=== PATIENT | female | born 1945 | race Hispanic/Latino ===

== ENCOUNTER → 2018-03-11 | Outpatient (CLI) | payer MEDICARE ==
[~2018-03-11] MED LIST: CARVEDILOL3.125 MG PO; COMBIVENT RESPIM4 GM INH; COREG12.5 MG PO; FUROSEMIDE40 MG PO; KLOR-CON 1010 MEQ PO; LEVAQUIN500 MG PO; METFORMIN HCL500 MG PO; MINOCYCLINE HC100 M1 PO; PRINIVIL5 MG PO; SIMVASTATIN40 MG PO; SPIRONOLACTONE25 MG PO; VICODIN 5-5001 EACH PO
== END ==
LOC: MAMMO 12:03
PROVIDERS: ATTEND Internal Medicine
DX: Z12.31 Encounter for screening mammogram for malignant neoplasm of breast (principal)
CPT/HCPCS: 77067

== ENCOUNTER 2018-08-25 16:33 | Observation (INO) | payer MEDICARE ==
[~2018-08-25] VITALS: Ht 147.3 cm; Wt 90.4 kg
--- OUTSIDE RECORDS SUMMARY | 2018-08-25 16:36 | XMS REPORT ---
Author Author [facility] Address Unknown Phone Unavailable Care Team Providers Care Certified Medical Assistant Name Role Phone ARLEN MEADOWS Unavailable Unavailable Problems This patient has no known problems. Allergies, Adverse Reactions, Alerts This patient has no known allergies or adverse reactions. Medications This patient has no known medications. Results Test Description Test Time Test Comments Text Results Atomic Results Result Comments MAMMOGRAPHY DIGITAL SCR BILAT [place] [address] Patient Name: JANESSA GARCIA MR #: [id number] : 1945 Age/Sex: 72/F Req #: [id number] [facility] Physician: Ordered by: ARLEN MEADOWS MD Report #: [id number] Location: MAMMO Room/Bed: Procedure: [id number] MG/MAMMOGRAPHY DIGITAL SCR BILAT Exam Date: 03/11/18 Exam Time: 1233 REPORT STATUS: Signed #[id number] - [id number] #BILATERAL DIGITAL SCREENING MAMMOGRAM WITH CAD: 03/11/2018 CLINICAL: Routine screening. No prior exams were available for comparison. Current study contains 5 films. The tissue of both breasts is predominantly fatty. Current study was also evaluated with a Computer Aided Detection (CAD) system. There are benign vascular calcifications and scattered calcifications in both breasts. 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 There is a left chest wall cardiac device present. No significant masses, calcifications, or other findings are seen in either breast. IMPRESSION: BENIGN There is no mammographic evidence of malignancy. A 1 year screening mammogram is recommended. The patient will be notified by manjit aguilar of the results. Bakari Murrell Jr., D.O. cw/:03/15/2018 11:33:16 Hooker Laster: Emmy JOYCE)(Silvia), [facility] letter sent: Normal Exam Mammogram BI-RADS: 2 Benign Dictated By: BAKARI MURRELL DO 1133 Transcribed By: TONY on 03/15/18 1133 COPY TO: ARLEN MEADOWS MD
[2018-08-25 17:39] LABS: BASOPHILS # (AUTO) 0.1 (0.0-0.1); EOSINOPHILS # (AUTO) 0.1 (0.0-0.4); HEMATOCRIT 43.1 % (34.2-44.1); HEMOGLOBIN 13.8 g/dL (12.0-16.0); LYMPHOCYTES # (AUTO) 1.9 (1.0-3.2); LYMPHOCYTES % 26.2 % (18.0-39.1); MEAN CORPUSCULAR HEMOGLOBIN 28.8 pg (28-32); MONOCYTES # (AUTO) 0.7 (0.2-0.8); MONOCYTES % 9.1 % (4.4-11.3); NEUTROPHILS # (AUTO) 4.4 (2.1-6.9); NEUTROPHILS % 62.4 % (38.7-80.0); PLATELET COUNT 234 x10e3/uL (140-360); RED BLOOD COUNT 4.79 x10e6/uL (3.6-5.1); RED CELL DISTRIBUTION WIDTH 13.4 % (11.7-14.4)
[2018-08-25 17:44] LABS: INR 1.02; PARTIAL THROMBOPLASTIN TIME 28.8 seconds (23.8-35.5); PROTHROMBIN TIME 14.3 seconds (11.9-14.5)
[2018-08-25 17:51] LABS: ALANINE AMINOTRANSFERASE 11 IU/L (0-55); ALBUMIN 3.9 g/dL (3.5-5.0); ALBUMIN/GLOBULIN RATIO 1.1 (0.8-2.0); ALKALINE PHOSPHATASE 76 IU/L (40-150); ANION GAP 12.3 mmol/L (8-16); BLOOD UREA NITROGEN 14 mg/dL (7-26); BUN/CREATININE RATIO 18 (6-25); CALCIUM 9.7 mg/dL (8.4-10.2); CARBON DIOXIDE 26 mmol/L (22-29); CHLORIDE 100 mmol/L (98-107); CREATINE KINASE 84 IU/L (29-168); EST GLOMERULAR FILTRATION RATE > 60 ML/MIN (60-); GLUCOSE 98 mg/dL (74-118); POTASSIUM 4.3 mmol/L (3.5-5.1); SODIUM 134 mmol/L (136-145)
[2018-08-25] MEDS ORDERED: FUROSEMIDE INJ 10 MG/ML 4 ML VIAL IV ONE (19:00)
--- NOTE | 2018-08-25 19:05 | Diagnostic Imaging Report ---
EXAMINATION: CHEST SINGLE (PORTABLE) INDICATION: Having trouble breathing. COMPARISON: None FINDINGS: TUBES and LINES: None. Blow lead left-sided cardiac pacemaker. Lungs: Bilateral pulmonary venous congestion and central pulmonary edema. PLEURA: No pleural effusion or pneumothorax. HEART AND MEDIASTINUM: The cardiac silhouette is moderately enlarged. Median sternotomy wires and mediastinal clips. BONES AND SOFT TISSUES: No acute osseous lesion. Soft tissues are unremarkable. UPPER ABDOMEN: No free air under the diaphragm. IMPRESSION: Bilateral pulmonary venous congestion and central pulmonary edema. Signed by: Dr. Bakari Rome M.D. on 08/25/2018 7:02 PM
[2018-08-25] MEDS ORDERED: DEXTROSE 50% SYRINGE 50 ML IV PRN (19:15)
[2018-08-25] MEDS ORDERED: INSULIN REGULAR, HUMAN 100 UNIT/1 ML 3ML VIAL SQ SCH (21:00)
[2018-08-25 22:30] VITALS: BP 147/78
[2018-08-25 22:31] VITALS: BP 147/78
[2018-08-25 22:34] VITALS: BP 147/78
[2018-08-26] VITALS (8 sets, daily range): BP systolic 98–118; BP diastolic 53–70
[2018-08-26 01:39] LABS: CREATINE KINASE MB 1.4 ng/mL (0-5.0)
[2018-08-26 05:48] LABS: BASOPHILS # (AUTO) 0.1 (0.0-0.1); BASOPHILS % 0.8 % (0.0-1.0); EOSINOPHILS # (AUTO) 0.1 (0.0-0.4); EOSINOPHILS % 1.5 % (0.0-6.0); HEMATOCRIT 39.6 % (34.2-44.1); HEMOGLOBIN 12.7 g/dL (12.0-16.0); LYMPHOCYTES # (AUTO) 1.8 (1.0-3.2); LYMPHOCYTES % 29.5 % (18.0-39.1); MEAN CORPUSCULAR HEMOGLOBIN 28.5 pg (28-32); MEAN CORPUSCULAR HGB CONC 32.1 g/dL (31-35); MEAN CORPUSCULAR VOLUME 88.8 fL (81-99); MONOCYTES # (AUTO) 0.7 (0.2-0.8); MONOCYTES % 10.8 % (4.4-11.3); NEUTROPHILS # (AUTO) 3.5 (2.1-6.9); NEUTROPHILS % 57.2 % (38.7-80.0); PLATELET COUNT 201 x10e3/uL (140-360); RED BLOOD COUNT 4.46 x10e6/uL (3.6-5.1); RED CELL DISTRIBUTION WIDTH 13.3 % (11.7-14.4)
--- NOTE | 2018-08-26 06:25 | Diagnostic Imaging Report ---
CHEST SINGLE (PORTABLE), 08/26/2018 7:00 AM Technique: CHEST SINGLE (PORTABLE) Comparison: Previous day Clinical history: Congestive heart failure Findings: See Impression Impression: 1. Lines/Tubes: Stable left chest wall dual-lead ICD. 2. Stable enlarged cardiomediastinal silhouette status post median sternotomy. 3. Central vascular congestion. No effusion or pneumothorax. Signed by: Dr Catherine Marin MD on 08/26/2018 6:22 AM
[2018-08-26 06:31] LABS: CREATINE KINASE MB 1.3 ng/mL (0-5.0)
[2018-08-26 06:53] LABS: ANION GAP 12.6 mmol/L (8-16); BLOOD UREA NITROGEN 15 mg/dL (7-26); BUN/CREATININE RATIO 19 (6-25); CALCIUM 9.5 mg/dL (8.4-10.2); CARBON DIOXIDE 28 mmol/L (22-29); CHLORIDE 102 mmol/L (98-107); CREATININE, SERUM 0.78 mg/dL (0.57-1.11); EST GLOMERULAR FILTRATION RATE > 60 ML/MIN (60-); GLUCOSE 90 mg/dL (74-118); POTASSIUM 3.6 mmol/L (3.5-5.1); SODIUM 139 mmol/L (136-145)
[2018-08-26] MEDS: INSULIN REGULAR, HUMAN 100 UNIT/1 ML 3ML VIAL SQ SCH ×4 (07:38→21:05)
[2018-08-26] MEDS ORDERED: DEXTROSE 50% SYRINGE 50 ML IV PRN (07:45)
[2018-08-26] MEDS: FUROSEMIDE INJ 10 MG/ML 4 ML VIAL IV SCH ×3 (08:32→21:06)
[2018-08-26] MEDS: CARVEDILOL 3.125 MG TAB PO SCH ×2 (08:51→16:38)
[2018-08-26] MEDS: SPIRONOLACTONE 25 MG TAB PO SCH (08:58)
[2018-08-26] MEDS: POTASSIUM CHLORIDE 10MEQ EA PO SCH (08:58)
[2018-08-26] MEDS ORDERED: FUROSEMIDE INJ 10 MG/ML 4 ML VIAL IV SCH (09:00)
[2018-08-26] MEDS ORDERED: LISINOPRIL 10 MG TAB PO SCH (09:00)
--- NOTE | 2018-08-26 09:15 | History and Physical ---
CHIEF COMPLAINT 1. Increasing shortness of breath. 2. Chest pain. 3. Weakness. HPI: This is a 72-year-old female with a past medical history of cardiomyopathy, coronary artery disease, diabetes, hypertension, congestive heart failure, hyperlipidemia, was in her usual state of health until the patient was feeling weakness, shortness of breath and chest pressure. Patient went to Dr. Gomez's office. Patient was found to be in pulmonary edema. Patient was sent to the ER. No leg pain. No leg swelling. No diarrhea. No constipation. No cough. No back pain. No seizures. No focal weakness. No hemoptysis. PAST MEDICAL HISTORY 1. Cardiomyopathy. 2. Congestive heart failure. 3. Coronary artery disease. 4. Hypertension. 5. Hyperlipidemia. 6. Diabetes mellitus, type 2. PAST SURGICAL HISTORY 1. History of coronary artery bypass graft. 2. AICD. HABITS: Denies smoking. No alcohol use. Denies illicit drug use. SOCIAL HISTORY: The patient is . Lives with family. FAMILY HISTORY: Noncontributory. MEDICATIONS: List reviewed. REVIEW OF SYSTEMS GENERAL: Denies vertigo. HEENT: No diplopia. CARDIAC: No edema. CHEST: No cough but has shortness of breath and chest pain. ALIMENTARY: No nausea or vomiting. No diarrhea. No constipation. GENITOURINARY: No dysuria or hematuria. MUSCULOSKELETAL: No joint pain. MANAGER ORDER: No weakness. PHYSICAL EXAMINATION GENERAL: The patient is a 72-year-old female who is alert and oriented times 3. No acute distress. VITALS: Temperature 97.5, pulse 72, respiratory rate 18, blood pressure 106/54. HEENT: Head is normocephalic and atraumatic. Bilaterally reactive to light. Extraocular muscles intact. NECK: Supple. Mild JVD. No carotid bruits. Tongue normal. Conjunctivae and sclerae normal. No clubbing. No cyanosis. LUNGS: Air entry fair. Decreased breath sounds at both bases. Few rhonchi bilaterally. HEART: S1 and S2. Muffled heart sounds. No S3. No S4. No murmur. ABDOMEN: Soft, obese, nontender. No guarding. No rigidity. EXTREMITIES: No edema. Peripheral pulses +1. MANAGER ORDER: Alert and nonfocal. CBC normal. Chemistry: Sodium 134, potassium 4.3, BUN and creatinine normal. BNP 263. CK, CK-MB normal. Chest x-ray with congestive heart failure and pulmonary edema. ASSESSMENT 1. Exacerbation of congestive heart failure: Patient has a history of cardiomyopathy, ischemic and valvular cardiomyopathy. 2. Hypertension. 3. Diabetes mellitus. 4. Atherosclerotic heart disease: Status post coronary artery bypass graft. 5. Hyperlipidemia. PLAN: Admit the patient to telemetry. Lasix 40 mg IV b.i.d. KCl 10 mEq daily. Aldactone 25 mg daily. Coreg and KRISTIAN inhibitor. Cardiology consult with Dr. Gomez. Cased discussed with the patient and family. Told of condition and prognosis explained. BMP in the morning. Lipid and hemoglobin A1c. Blood sugar check and sliding scale. Will hold metformin right now. Job#: [id number] MJ
--- NOTE | 2018-08-26 18:19 | Consultation ---
DATE OF CONSULTATION: August 26, 2018 CARDIOLOGY CONSULTATION REASON FOR CONSULTATION: Congestive heart failure. HISTORY OF PRESENT ILLNESS: This is a 72-year-old woman with a history of coronary artery disease, status post 3-vessel CABG, chronic systolic heart failure, status post BIVI ICD, hyperlipidemia, diabetes mellitus, and hypertension, who presents with complaints of shortness of breath. The patient reports she has had 2 weeks of progressive shortness of breath and dyspnea on exertion. She endorses paroxysmal nocturnal dyspnea, but no orthopnea. She likewise denies any chest pain, edema, palpitations, or lightheadedness. Due to her symptoms, she was seen in the office yesterday with adjustment in her medications. Due to lack of improvement, the patient presented to the ER for further evaluation. REVIEW OF SYSTEMS: Negative except as per HPI. PAST MEDICAL HISTORY: Coronary artery disease, status post 3-vessel CABG, chronic systolic heart failure, status post BIVI ICD, diabetes mellitus, hypertension, hyperlipidemia. PAST SURGICAL HISTORY: Three-vessel CABG, BIVI ICD. ALLERGIES: NO KNOWN DRUG ALLERGIES. MEDICATIONS: Please see medication list. SOCIAL HISTORY: Denies tobacco, alcohol or illicit drugs. FAMILY HISTORY: Noncontributory to current illness. PHYSICAL EXAMINATION VITALS: Temperature 98.1 degrees, pulse 71, respiratory rate 18, blood pressure 106/70, oxygen saturation 96% on 2 L nasal cannula. GENERAL: Obese woman, well-developed, well-nourished and in no acute distress. Awake and alert. LUNGS: Decreased breath sounds. No wheezes or crackles appreciated. CARDIOVASCULAR: Normal rate. Regular rhythm. A 2/6 systolic murmur. Normal S1 and S2. ABDOMEN: Soft and nontender. EXTREMITIES: No edema. NEURO: Nonfocal exam. LABS: WBC 6.03, hemoglobin 12.7, hematocrit 39.6, and platelets 201,000. Sodium 139, potassium 3.6, chloride 102, CO2 28, BUN 15, creatinine 0.78. Troponin 0.012. BNP 264. Chest x-ray with stable enlarged cardiomediastinal silhouette, status post median sternotomy. Central vascular congestion. No effusion or pneumothorax. EKG is normal sinus rhythm with sinus arrhythmia, possible inferior infarct, age undetermined. IMPRESSION 1. Tuyyg-sq-bnzwqqu systolic heart failure. 2. Ischemic cardiomyopathy: Status post BIV implantable cardioverter defibrillator. 3. Coronary artery disease: Status post 3-vessel coronary artery bypass graft with large inferior transmural scar on last nuclear stress test in December of 2015. 4. Hypertension. 5. Hyperlipidemia. 6. Diabetes mellitus. RECOMMENDATIONS: Continue current cardiac medications. Stop lisinopril. The patient was changed to Entresto as an outpatient. Continue spironolactone, Coreg and simvastatin. Agree with intravenous furosemide. We will increase to t.i.d. dosing to augment diuresis. Add Entresto if renal function is stable and lisinopril has been stopped. Echocardiogram reveals EF remains severely reduced. Continue optimal heart failure therapy. No further cardiac evaluation is indicated at this time. Thank you for this consult. We will continue to follow. Job#: [id number] MJ PARRISH
[2018-08-26] MEDS: SIMVASTATIN 40 MG TAB PO SCH (21:06)
[2018-08-27 01:10] VITALS: BP 112/59
[2018-08-27 04:50] VITALS: BP 101/62
[2018-08-27 05:30] LABS: ANION GAP 14.8 mmol/L (8-16); CALCIUM 9.6 mg/dL (8.4-10.2); CHOL/HDL RATIO 3.8 (3.0-3.6); CREATININE, SERUM 0.97 mg/dL (0.57-1.11); POTASSIUM 3.8 mmol/L (3.5-5.1)
[2018-08-27] MEDS ORDERED: LISINOPRIL 5 MG PO SCH (06:00)
[2018-08-27] MEDS: INSULIN REGULAR, HUMAN 100 UNIT/1 ML 3ML VIAL SQ SCH ×4 (07:24→22:29)
[2018-08-27] MEDS: CARVEDILOL 3.125 MG TAB PO SCH ×2 (07:24→17:09)
[2018-08-27 07:32] VITALS: BP 108/53
[2018-08-27] MEDS: FUROSEMIDE INJ 10 MG/ML 4 ML VIAL IV SCH ×3 (08:53→22:00)
[2018-08-27] MEDS: SPIRONOLACTONE 25 MG TAB PO SCH (08:53)
[2018-08-27] MEDS: POTASSIUM CHLORIDE 10MEQ EA PO SCH (08:53)
[2018-08-27 11:27] VITALS: BP 147/75
--- NOTE | 2018-08-27 15:42 | Progress Note ---
DATE: August 27, 2018 CARDIOLOGY PROGRESS NOTE SUBJECTIVE: Patient denies chest pain or shortness of breath. OBJECTIVE VITAL SIGNS: Temperature 98.8 degrees, pulse 74, respiratory rate 18, blood pressure 147/75, and oxygen saturation 94% on 2 liters nasal cannula. GENERAL: Obese woman, in no acute distress, awake and alert. LUNGS: Clear to auscultation bilaterally. No wheezes or crackles. CARDIOVASCULAR: Normal rate. Regular rhythm. A 2/6 systolic murmur. Normal S1, S2. ABDOMEN: Soft, nontender. EXTREMITIES: No edema. CARDIAC MEDICATIONS: Versed 4 mg IV t.i.d., spironolactone 25 mg p.o. daily, simvastatin 40 mg p.o. q.h.s., carvedilol 3.125 mg p.o. b.i.d. LABS: Sodium 136, potassium 3.8, chloride 96, CO2 of 29, BUN 22, creatinine 0.97. Cholesterol 175, triglycerides 122, LDL 105, and HDL 46. TELEMETRY: Normal sinus rhythm. IMPRESSION 1. Rksrv-rf-yosksqv systolic heart failure. 2. Ischemic cardiomyopathy status post biventricular implantable cardioverter defibrillator. 3. Coronary artery disease status post 3-vessel coronary artery bypass grafting with large inferior transmural scar on last nuclear stress test in December of 2015. 4. Hypertension. 5. Hyperlipidemia. 6. Diabetes mellitus. RECOMMENDATIONS: Continue current cardiac medications. Watch blood pressure closely. If creatinine is stable, would restart patient on Entresto, which she was on as an outpatient. Continue spironolactone, carvedilol, and simvastatin. Continue IV diuretics. Monitor volume status closely. Continue optimal heart failure therapy. No further cardiac evaluation is indicated at this time. Heart healthy diet low sodium as 2000 mg sodium restriction and 2 liter fluid restriction were discussed. Thank you for this consult. We will continue to follow. Job#: [id number] BOB
[2018-08-27 16:00] VITALS: BP 127/63
[2018-08-27 19:15] VITALS: BP 126/83
[2018-08-27] MEDS: SIMVASTATIN 40 MG TAB PO SCH (21:00)
[2018-08-28 00:45] VITALS: BP 118/70
[2018-08-28 04:25] VITALS: BP 119/66
[2018-08-28 05:57] LABS: ALBUMIN 3.9 g/dL (3.5-5.0); ALBUMIN/GLOBULIN RATIO 1.1 (0.8-2.0); ANION GAP 17.3 mmol/L (8-16); CALCIUM 9.7 mg/dL (8.4-10.2); CREATININE, SERUM 0.99 mg/dL (0.57-1.11); MAGNESIUM 2.3 MG/DL (1.3-2.1); POTASSIUM 4.3 mmol/L (3.5-5.1)
[2018-08-28] MEDS: INSULIN REGULAR, HUMAN 100 UNIT/1 ML 3ML VIAL SQ SCH ×2 (07:30→12:03)
[2018-08-28 08:00] VITALS: BP 110/57
[2018-08-28] MEDS: FUROSEMIDE INJ 10 MG/ML 4 ML VIAL IV SCH (09:16)
[2018-08-28] MEDS: SPIRONOLACTONE 25 MG TAB PO SCH (09:16)
[2018-08-28] MEDS: POTASSIUM CHLORIDE 10MEQ EA PO SCH (09:17)
[2018-08-28] MEDS: CARVEDILOL 3.125 MG TAB PO SCH (09:17)
[2018-08-28 10:03] VITALS: BP 110/57
[2018-08-28 12:00] VITALS: BP 116/57
[2018-08-28] MEDS ORDERED: LASIX40 MG PO (14:10)
--- NOTE | 2018-08-28 17:34 | Progress Note ---
DATE: August 28, 2018 CARDIOLOGY PROGRESS NOTE SUBJECTIVE: The patient denies chest pain or shortness of breath. OBJECTIVE VITAL SIGNS: Temperature 98.5 degrees, pulse 72, respiratory rate 18, blood pressure 116/57, oxygen saturation 98% on 2 liters nasal cannula. GENERAL: Awake, alert, obese woman, in no acute distress. LUNGS: Clear to auscultation bilaterally. No wheeze. No crackles. CARDIOVASCULAR: Normal rate, regular rhythm. A 2/6 systolic murmur. Normal S1, S2. ABDOMEN: Soft, nontender. EXTREMITIES: No edema. CARDIAC MEDICATIONS 1. Carvedilol 3.125 mg p.o. b.i.d. 2. Furosemide 40 mg IV t.i.d. 3. Spironolactone 25 mg p.o. daily. 4. Simvastatin 40 mg p.o. q.h.s. LABS: Sodium 132, potassium 4.3, chloride 92, CO2 of 27, BUN 25, creatinine 0.99. TELEMETRY: Normal sinus rhythm. IMPRESSION 1. Cjedc-oh-coojqly systolic heart failure. 2. Ischemic cardiomyopathy, status post biventricular implantable cardioverter defibrillator. 3. Coronary artery disease, status post 3-vessel coronary artery bypass grafting with large inferior transmural scar on the last nuclear stress test in December of 2015. 4. Hypertension. 5. Hyperlipidemia. 6. Diabetes mellitus. RECOMMENDATIONS: Continue current cardiac medications. Resume Entresto with transition Lasix to 40 mg p.o. b.i.d. on discharge. Discuss with the patient importance of daily weights, heart heathy 2 g sodium, 2 liter fluid restriction. In addition, discuss cardiac medications with patient and confirmed home cardiac medication therapy. No further cardiac evaluation is indicated at this time. Patient will follow up with us in the office in 2 weeks. Thank you for this consult. We will continue to follow. Job#: [id number] BOB
--- NOTE | 2018-10-15 17:33 | Discharge Summary ---
CHIEF COMPLAINT: Acute pulmonary edema and dyspnea. FINAL DIAGNOSES 1. Exacerbated congestive heart failure, improved. 2. Hypertension. 3. Arteriosclerotic cardiovascular disease. DISPOSITION: Home. HOSPITAL COURSE: This is a 73-year-old female who has a history of dyspnea, congestive heart failure. Her dyspnea has been waxing and waning, 1-week history, which she describes as moderate and has worsened by walking and exertion, improved upon rest or sitting upright. Has also had a cough, orthopnea, paroxysmal nocturnal dyspnea. No chest pains. No dizziness. She has had similar symptoms previously. With review and evaluation in the emergency room, patient was admitted to the facility for treatment and evaluation regarding issues of acute dyspnea, acute pulmonary edema associated with heart disease. She was placed in IMCU. She began treatment with IV Lasix, potassium replenishment, Aldactone, Coreg, and KRISTIAN inhibitors. It was noted that she was having no chest pains. Her shortness of breath was improving. Her laboratory studies were showing stable electrolytes. Kidney function stable. Glucose 135. CBC stable. She will be continuing on Lasix 40 mg IV t.i.d. She will continue on potassium replenishment. Began receiving some PT/OT. Her shortness of breath was improving. Her labs were remaining stable. She was being cleared for discharge and she was then to be released home on August 28, 2018 in stable condition. EKG showing normal sinus rhythm with sinus arrhythmia, possible inferior infarct, age undetermined. This was followed with an echocardiogram, showing an ejection fraction between 30% and 35%. No evidence of pericardial effusion. She was able to be discharged home. She will continue on her current diet. No equipment or supplies necessary. No drains or Lemus are needed. Activity level as directed by me. FOLLOWUP CARE: She will be returned into her PCP within the next 3 to 5 days. Following up with cardiology as directed. She will be continued on her routine general medications. She was given prescription for Lasix 40 mg 1 tablet p.o. b.i.d. She will be contacted her PCP if she has any further questions or concerns. Dictated By: BOOGIE Virk Job#: [id number] ROSALIA
--- NOTE | 2018-10-15 18:20 | Discharge Summary ---
CHIEF COMPLAINT: Allergic reaction to vaccination. FINAL DIAGNOSIS: Allergic reaction to vaccination. HOSPITAL COURSE: A 73-year-old female presented to the office, was given a flu vaccine on the right shoulder, Pneumovax left shoulder. Later on the day, she reported back to the emergency room due to severe reaction, noted to the left upper shoulder with severe reaction, redness, painful, and fever. Noted to have significant inflammation along the left deltoid area with tender to touch and redness. Further review and evaluation was placed on the patient. She was admitted to observation for evaluation regarding severe allergic reaction, pneumonia vaccine on the left deltoid shoulder. She will be receiving IV steroids and Benadryl. Patient will continue to be monitored closely. Once stabilized, the patient will be discharged home, which she was on August 28, 2018 in good condition. Her laboratory studies were unremarkable. She was also receiving some vancomycin IV as well. She was discharged to home. Continue on a current diet. No equipments or supplies necessary. No drains or Lemus are needed. Activity level as directed by me. FOLLOWUP CARE: She will return into the office within 3 to 5 days. She will continue on daily medications. She will be continued on levothyroxine sodium 112 mcg, which will be a 137 mcg daily. She will be on Bystolic 10 mg 1 tablet daily. Any other further concerns, she will be contacted me in my office. Dictated by: BOOGIE Virk Job#: [id number] ROSALIA
== END 2018-08-28 15:01 | disposition home or self-care (01) ==
LOC: ER 16:33 → IMCU 19:14 → ER 21:10
PROVIDERS: ADMIT Internal Medicine; ATTEND Internal Medicine
DX: I11.0 Hypertensive heart disease with heart failure (principal); I50.23 Acute on chronic systolic (congestive) heart failure; R07.9 Chest pain, unspecified; R53.1 Weakness; E78.5 Hyperlipidemia, unspecified; E11.9 Type 2 diabetes mellitus without complications; I25.10 Atherosclerotic heart disease of native coronary artery without angina pectoris; Z95.810 Presence of automatic (implantable) cardiac defibrillator; Z95.1 Presence of aortocoronary bypass graft; Z79.84 Long term (current) use of oral hypoglycemic drugs; Z88.1 Allergy status to other antibiotic agents
CPT/HCPCS: 36415 ×3; 71045 ×2; 80048 ×2; 80053 ×2; 80061; 82550 ×2; 82553 ×2; 82948 ×4; 83036; 83735; 83880; 84484 ×2; 85025 ×2; 85379; 85610; 85730; 93005; 93306; 97116; 97161; 99284; G0378 ×4; J1940 ×4

== ENCOUNTER 2018-11-06 12:14 | Inpatient (IN) | payer MEDICARE ==
[~2018-11-06] VITALS: Ht 147.3 cm; Wt 86.7 kg
[2018-11-06] VITALS (7 sets, daily range): BP systolic 112–118; BP diastolic 65–89
[~2018-11-06 12:14] MED LIST changes: +LASIX40 MG PO
[2018-11-06] MEDS ORDERED: ASPIRIN 81 MG CHEW TAB PO ONE (13:00)
[2018-11-06 13:05] LABS: BASOPHILS % 0.5 % (0.0-1.0); EOSINOPHILS % 0.5 % (0.0-6.0); HEMATOCRIT 34.8 % (34.2-44.1); HEMOGLOBIN 11.4 g/dL (12.0-16.0); LYMPHOCYTES # (AUTO) 0.7 (1.0-3.2); LYMPHOCYTES % 9.2 % (18.0-39.1); MEAN CORPUSCULAR HEMOGLOBIN 28.5 pg (28-32); MEAN CORPUSCULAR HGB CONC 32.8 g/dL (31-35); MONOCYTES # (AUTO) 0.5 (0.2-0.8); NEUTROPHILS # (AUTO) 6.1 (2.1-6.9); NEUTROPHILS % 82.4 % (38.7-80.0); PLATELET COUNT 194 x10e3/uL (140-360); RED CELL DISTRIBUTION WIDTH 13.6 % (11.7-14.4)
[2018-11-06 13:16] LABS: INR 1.12; PARTIAL THROMBOPLASTIN TIME 29.9 seconds (23.8-35.5); PROTHROMBIN TIME 15.4 seconds (11.9-14.5)
[2018-11-06 13:29] LABS: ALANINE AMINOTRANSFERASE 13 IU/L (0-55); ALBUMIN/GLOBULIN RATIO 0.8 (0.8-2.0); ALKALINE PHOSPHATASE 52 IU/L (40-150); ANION GAP 14.2 mmol/L (8-16); BLOOD UREA NITROGEN 15 mg/dL (7-26); BUN/CREATININE RATIO 17 (6-25); CALCIUM 8.8 mg/dL (8.4-10.2); CARBON DIOXIDE 24 mmol/L (22-29); CHLORIDE 93 mmol/L (98-107); CREATINE KINASE 41 IU/L (29-168); CREATININE, SERUM 0.89 mg/dL (0.57-1.11); EST GLOMERULAR FILTRATION RATE > 60 ML/MIN (60-); GLUCOSE 268 mg/dL (74-118); MAGNESIUM 2.5 MG/DL (1.3-2.1); POTASSIUM 4.2 mmol/L (3.5-5.1); SODIUM 127 mmol/L (136-145)
[2018-11-06] MEDS ORDERED: IPRATROPIUM BROMIDE 0.02% 2.5 ML NEB NEB ONE (13:30)
[2018-11-06 13:32] LABS: B-TYPE NATRIURETIC PEPTIDE2 661.8 pg/mL (0-100)
[2018-11-06] MEDS ORDERED: ALBUTEROL SULF 0.083% NEB SOLN 3 ML NEB NEB ONE (14:00)
[2018-11-06 14:09] LABS: BILIRUBIN,URINE NEGATIVE (NEGATIVE); CLARITY,URINE HAZY (CLEAR); COLOR,URINE YELLOW (YELLOW); KETONES,URINE NEGATIVE (NEGATIVE); LEUKOCYTE ESTERASE ,URINE NEGATIVE (NEGATIVE); NITRITE,URINE NEGATIVE (NEGATIVE); PROTEIN,URINE DIPSTICK TRACE (NEGATIVE); URINE UROBILINOGEN 4 mg/dL (0.2 - 1)
[2018-11-06 14:10] LABS: AMORPHOUS SEDIMENT,URINE FEW (FEW); BACTERIA,URINE FEW /HPF; EPITHELIAL CELLS,URINE FEW /LPF; HYALINE CASTS 0-1 (0-1); MUCUS,URINE FEW (RARE); RBC,URINE 0-5 /HPF (0-5)
--- NOTE | 2018-11-06 14:11 | Diagnostic Imaging Report ---
EXAMINATION: CHEST SINGLE (PORTABLE) COMPARISON: Chest x-ray 08/26/2018 INDICATION: Shortness of breath, hypoxia ^SOB ^[id number] ^[id number] DISCUSSION: Frontal view of the chest obtained at 1336 hours. HEART AND MEDIASTINUM: Stable cardiomegaly and cardiac bypass changes. Pacemaker wires terminate in the right atrium and right ventricle. LUNGS: Diffuse hyperinflation consistent with COPD. There is subsegmental atelectasis in the left upper lobe. Vascular markings are prominent and similar in appearance. PLEURA: No pleural effusion or pneumothorax. BONES AND SOFT TISSUES: No focal osseous lesion. The soft tissues are normal. IMPRESSION: Cardiomegaly and pulmonary vascular congestion, likely chronic. Pulmonary hyperinflation consistent with COPD. New subsegmental atelectasis in the left upper lobe. Signed by: Dr. Manuel Sanchez MD on 11/06/2018 2:08 PM
[2018-11-06 14:27] LABS: ABG HCO3 24 mmol/L (23-28); ABG PCO2 40 mmHg (41-51); ABG PH 7.38 (7.31-7.41); ABG PO2 88 mmHg (80-105)
[2018-11-06] MEDS ORDERED: ALBUTEROL SULF 0.083% NEB SOLN 3 ML NEB NEB SCH (15:00)
[2018-11-06] MEDS ORDERED: FUROSEMIDE INJ 100 MG in SODIUM CHLORIDE 0.9% 100 ML 90 ML IV SCH (15:00)
[2018-11-06] MEDS ORDERED: IPRATROPIUM BROMIDE 0.02% 2.5 ML NEB NEB SCH (15:00)
[2018-11-06] MEDS ORDERED: ONDANSETRON HCL INJ 2 MG/ML VIAL IV PRN (15:00)
[2018-11-06] MEDS: FAMOTIDINE 20 MG/2 ML VIAL IV SCH (15:38)
[2018-11-06] MEDS ORDERED: FUROSEMIDE INJ 10 MG/ML 2 ML VIAL IV ONE (15:45)
[2018-11-06] MEDS: AZITHROMYCIN 500MG/NS 250 ML 250 ML IV SCH (15:45)
[2018-11-06] MEDS: CEFTRIAXONE SOD 1 GM/NS 50 ML 50 ML IV SCH (15:52)
[2018-11-06] MEDS: FUROSEMIDE INJ 100 MG in SODIUM CHLORIDE 0.9% 100 ML 90 ML IV SCH (16:25)
[2018-11-06 17:31] LABS: CREATINE KINASE MB 0.6 ng/mL (0-5.0)
--- NOTE | 2018-11-06 18:29 | Consultation ---
DATE OF CONSULTATION: November 06, 2018 CARDIOLOGY CONSULTATION REQUESTING PHYSICIAN: Dr. Wills. REASON FOR CONSULTATION: Chest pain and shortness of breath. HISTORY OF PRESENT ILLNESS: This is a 73-year-old woman with history of coronary artery disease status post 3-vessel CABG, chronic systolic heart failure, status post BIV ICD, hyperlipidemia, diabetes mellitus, and hypertension who presents with complaints of chest pain and shortness of breath. The patient reports she has been short of breath since Wednesday with worsening of her symptoms today for which she presented to the ER. In addition, patient reports she has been having chest pressure for the same period of time, which also worsened today. Family who are at bedside indicate when they went to see her today, they noted her lips were blue and thus brought her to the ER. She does endorse dyspnea on exertion and paroxysmal nocturnal dyspnea, although she was not able to provide further details. She denies edema, fever or chills. REVIEW OF SYSTEMS: Negative except as per HPI. PAST MEDICAL HISTORY 1. Coronary artery disease, status post 3-vessel CABG. 2. Chronic systolic heart failure status post BIV ICD. 3. Diabetes mellitus. 4. Hypertension. 5. Hyperlipidemia. PAST SURGICAL HISTORY 1. Three-vessel CABG. 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 ALLERGIES: NO KNOWN DRUG ALLERGIES. MEDICATIONS: Please see medication list. SOCIAL HISTORY: No tobacco, alcohol, or illicit drugs. FAMILY HISTORY: Noncontributory to current illness. PHYSICAL EXAMINATION VITAL SIGNS: Temperature 98.5 degrees, pulse 72, respiratory rate 24, blood pressure 102/51, oxygen saturation 99% on 3 liters nasal cannula. GENERAL: Morbidly obese woman, in no acute distress, awake and alert. HEENT: Normocephalic, atraumatic. Pupils equal. No scleral icterus. NECK: Supple. No thyromegaly or cervical lymphadenopathy. No carotid bruits. LUNGS: Clear to auscultation bilaterally. No wheezes or crackles. CARDIOVASCULAR: Normal rate, regular rhythm. A 2/6 systolic murmur. Normal S1 and S2. ABDOMEN: Soft and nontender. EXTREMITIES: No edema. LABS: WBC 7.43, hemoglobin 11.4, hematocrit 34.8, platelets 194. Sodium 127, potassium 4.2, chloride 93, CO2 of 24, BUN of 15, creatinine 0.89. BNP 662. Troponin 0.007. Chest x-ray, cardiomegaly and pulmonary vascular congestion likely chronic, pulmonary hyperinflation consistent with COPD, new subsegment atelectasis in the left upper lobe. EKG, normal sinus rhythm. Minimal voltage criteria for LVH, inferior infarct age indeterminate, ST and T wave abnormality considered anterolateral ischemia. IMPRESSION 1. Chest pain. 2. Iuzlj-ri-jemkect systolic heart failure. 3. Ischemic cardiomyopathy status post POWERHOUSE ENGINEER ICD. 4. Coronary artery disease status post 3-vessel coronary artery bypass graft with large inferior transmural scar on stress test in December of 2015. 5. Hyponatremia. 6. Hypertension. 7. Hyperlipidemia. 8. Diabetes mellitus. RECOMMENDATIONS: Patient has been started on Lasix drip. Continue home cardiac medications including aspirin. She was on Coreg and Entresto at home; however, these are temporarily being held due to low blood pressure. We will resume once blood pressure improves. Monitor creatinine, trend cardiac enzymes. If patient ruled out for myocardial infarction, no further cardiac evaluation will be indicated at this time. Thank you for this consult. We will continue to follow. Job#: [id number] BOB PARRISH
[2018-11-06] MEDS: ALBUTEROL/IPRATROPIUM 3 ML NEB NEB SCH ×2 (18:55→22:00)
[2018-11-06] MEDS ORDERED: NAPROXEN250 MG PO (19:01)
[2018-11-06] MEDS ORDERED: KLOR-CON 1010 MEQ PO (19:01)
[2018-11-06] MEDS ORDERED: DEXTROSE 50% SYRINGE 50 ML IV PRN (20:45)
[2018-11-06] MEDS ORDERED: METFORMIN HCL 500 MG TAB PO SCH (21:00)
[2018-11-06] MEDS: SIMVASTATIN 40 MG TAB PO SCH (21:12)
[2018-11-06] MEDS: INSULIN LISPRO 100 UNIT/1 ML 3ML VIAL SQ SCH (21:13)
[2018-11-07] VITALS (25 sets, daily range): BP systolic 91–143; BP diastolic 44–101
[2018-11-07] MEDS ORDERED: POTASSIUM CHLORIDE 20 MEQ TAB CR PO STA ×2 (00:33→00:47)
[2018-11-07 00:39] LABS: CREATINE KINASE MB 0.5 ng/mL (0-5.0)
[2018-11-07] MEDS: ALBUTEROL/IPRATROPIUM 3 ML NEB NEB SCH ×6 (03:10→23:10)
[2018-11-07] MEDS ORDERED: SODIUM CHLORIDE 0.9% 100 ML ONE ×2 (03:40→19:20)
[2018-11-07] MEDS: CEFTRIAXONE SOD 1 GM/NS 50 ML 50 ML IV SCH ×2 (03:49→15:23)
[2018-11-07] MEDS: FAMOTIDINE 20 MG/2 ML VIAL IV SCH ×2 (03:49→14:36)
[2018-11-07 04:54] LABS: BASOPHILS # (AUTO) 0.1 (0.0-0.1); BASOPHILS % 0.7 % (0.0-1.0); EOSINOPHILS # (AUTO) 0.1 (0.0-0.4); HEMATOCRIT 34.7 % (34.2-44.1); HEMOGLOBIN 11.5 g/dL (12.0-16.0); LYMPHOCYTES # (AUTO) 1.1 (1.0-3.2); MEAN CORPUSCULAR HEMOGLOBIN 28.8 pg (28-32); MEAN CORPUSCULAR HGB CONC 33.1 g/dL (31-35); MEAN CORPUSCULAR VOLUME 86.8 fL (81-99); MONOCYTES # (AUTO) 0.8 (0.2-0.8); MONOCYTES % 11.6 % (4.4-11.3); NEUTROPHILS # (AUTO) 4.9 (2.1-6.9); NEUTROPHILS % 70.3 % (38.7-80.0); PLATELET COUNT 213 x10e3/uL (140-360); RED CELL DISTRIBUTION WIDTH 13.5 % (11.7-14.4)
[2018-11-07 05:25] LABS: CREATINE KINASE MB 0.4 ng/mL (0-5.0)
[2018-11-07 05:51] LABS: ALANINE AMINOTRANSFERASE 12 IU/L (0-55); ALBUMIN/GLOBULIN RATIO 0.8 (0.8-2.0); ALKALINE PHOSPHATASE 52 IU/L (40-150); ANION GAP 12.8 mmol/L (8-16); BLOOD UREA NITROGEN 12 mg/dL (7-26); BUN/CREATININE RATIO 15 (6-25); CALCIUM 9.3 mg/dL (8.4-10.2); CARBON DIOXIDE 29 mmol/L (22-29); CHLORIDE 98 mmol/L (98-107); CHOL/HDL RATIO 2.7 (3.0-3.6); CHOLESTEROL 138 MD/DL (0-199); CREATININE, SERUM 0.82 mg/dL (0.57-1.11); EST GLOMERULAR FILTRATION RATE > 60 ML/MIN (60-); GLUCOSE 121 mg/dL (74-118); HDL CHOLESTEROL 51 MG/DL (40-60); LDL CHOLESTEROL 70 MG/DL (60-130); TRIGLYCERIDES 83 MG/DL (0-149)
[2018-11-07 05:56] LABS: SODIUM 136 mmol/L (136-145)
[2018-11-07 05:57] LABS: POTASSIUM 3.8 mmol/L (3.5-5.1)
[2018-11-07] MEDS: AZITHROMYCIN 500MG/NS 250 ML 250 ML IV SCH (08:36)
[2018-11-07] MEDS: SPIRONOLACTONE 25 MG TAB PO SCH (08:37)
[2018-11-07] MEDS: ASPIRIN 81 MG ENTERIC COATED PO SCH (08:37)
[2018-11-07] MEDS: CARVEDILOL 12.5 MG TAB PO SCH ×2 (08:37→17:35)
[2018-11-07] MEDS: POTASSIUM CHLORIDE 20 MEQ TAB CR PO SCH (08:38)
[2018-11-07] MEDS: INSULIN LISPRO 100 UNIT/1 ML 3ML VIAL SQ SCH ×4 (08:40→21:00)
[2018-11-07] MEDS ORDERED: CARVEDILOL 3.125 MG TAB PO SCH (09:00)
[2018-11-07] MEDS ORDERED: POTASSIUM CHLORIDE 10MEQ EA PO SCH (09:00)
[2018-11-07] MEDS ORDERED: FUROSEMIDE 40 MG TAB PO SCH (09:00)
[2018-11-07] MEDS ORDERED: LISINOPRIL 10 MG TAB PO SCH (09:00)
--- NOTE | 2018-11-07 09:33 | History and Physical ---
CHIEF COMPLAINT 1. Shortness of breath. 2. Fatigue. 3. Cough. HPI: This is a 73-year-old female with a past medical history of CAD, CABG, congestive heart failure, cardiomyopathy, hypertension, hyperlipidemia, diabetes mellitus, was in her usual state of health until a few days ago. She started developing some fatigue and weakness and dyspnea on exertion, cough, cough with expectoration. No fever. Had some atypical chest pain on the left side with left-sided pain and increased with exertion. No leg pain. No leg swelling. No back pain. No burning on urination. No diarrhea. No constipation. No seizures. No hematemesis. No melena. No hematuria. PAST MEDICAL HISTORY 1. Congestive heart failure. 2. Coronary artery disease. 3. Cardiomyopathy. 4. Hypertension. 5. Hyperlipidemia. 6. Diabetes mellitus, type 2. PAST SURGICAL HISTORY 1. History of AICD and pacemaker. 2. History of coronary artery bypass graft. SOCIAL HISTORY: Denies smoking. Denies illicit drug use. Denies alcohol use. This patient is . Lives with daughter. FAMILY HISTORY: Noncontributory. MEDICATIONS: List has been reviewed. REVIEW OF SYSTEMS GENERAL: Fatigue and weakness. HEENT: No diplopia. No . CARDIOPULMONARY: Has shortness of breath, cough and chest pain. ALIMENTARY: No nausea or vomiting. No diarrhea. No constipation. No hematemesis. GENITOURINARY: No dysuria or hematuria. MUSCULOSKELETAL: No joint pain. NEUROLOGICAL: No complaints. PHYSICAL EXAMINATION GENERAL: This is a 73-year-old female who is alert and oriented, and in mild respiratory distress. VITALS: Temperature 98.2, pulse 73, respiratory rate 18, blood pressure 100/60. HEENT: Head is atraumatic and normocephalic. Pupils bilaterally equal and reactive to light. Extraocular muscles intact. NECK: Supple. Has mild JVD. No carotid bruits. No clubbing. No cyanosis. LUNGS: Decreased breath sounds at both bases. Rhonchi and wheezing bilaterally. HEART: S1 and S2. Regular rate and rhythm. No S3. No S4. No murmur. ABDOMEN: Soft and nontender. No guarding or rigidity. EXTREMITIES: No edema. Peripheral pulses +1. INTERIOR DESIGN INSTRUCTOR: Grossly nonfocal. Chest x-ray with cardiomegaly with pulmonary vascular congestion. Pulmonary hyperinflation with COPD. Near segmental atelectasis in upper lobe. CBC is normal. Chemistry: Potassium 3.8, BUN and creatinine normal. 21. Albumin 3. EKG is sinus rhythm and pacemaker rhythm at [address]-T changes. ASSESSMENT 1. Exacerbation of congestive heart failure. 2. Exacerbation of chronic obstructive pulmonary disease. 3. Bronchitis. 4. Angina: Rule out myocardial infarction. 5. Coronary artery disease. 6. Hypertension. 7. Diabetes mellitus. 8. Hyperlipidemia. 9. Automatic implanted cardioverter defibrillator and pacemaker. PLAN: Admit the patient to ICU. IV Rocephin and IV Zithromax. Neb treatments and DuoNebs q.4 h. p.r.n., Lasix drip 5 mg per hour. BMP in the morning. Lovenox 40 mg subcutaneous q.24 h. for DVT prophylaxis. Pepcid 20 mg b.i.d. for GI prophylaxis. Pulmonary consult with Dr. Jean and Dr. Edwards. Cardiology consult with Dr. Gomez. Case discussed with the patient and family and daughter. Condition and prognosis guarded. Job#: [id number] [place]
--- NOTE | 2018-11-07 10:16 | Consultation ---
DATE OF CONSULTATION: PULMONARY CONSULTATION REASON FOR CONSULTATION: Shortness of breath. HPI: Ms. Zheng is a 73-year-old female who presented with shortness of breath and cough going on for 3 days. Yesterday, the niece noticed that her lips are turning purple so she decided to bring the patient to the hospital. The patient has never smoked in her life. She denies any nausea, vomiting, chest pain. She is not on home oxygen. REVIEW OF SYSTEMS GENERAL: Denies any fever or chills. HEENT: Denies any head trauma. ENT: Denies any earache. CV: Chest pain. RESPIRATORY: Shortness of breath. GI: Denies any nausea or vomiting. MUSCULOSKELETAL: Generalized weakness. The rest of the review of systems are negative, except as in HPI. PAST MEDICAL HISTORY: Cardiomyopathy, coronary artery disease, hypertension, hyperlipidemia, diabetes. PAST SURGICAL HISTORY: History of CABG and AICD. FAMILY AND SOCIAL HISTORY: She is and lives with her family. FAMILY HISTORY: Noncontributory. PHYSICAL EXAMINATION VITAL SIGNS: Temperature 99.1, pulse of 73, blood pressure 101/84, respiratory rate of 18, O2 sat 99% on 2 L. HEENT: Head atraumatic and normocephalic. NECK: Supple. CHEST: Crackles in the bases and wheezing. HEART: S1 and S2 audible. No murmurs, gallops or rub. ABDOMEN: Soft, nontender and nondistended. EXTREMITIES: No pedal edema. NEUROLOGICAL: Awake and alert. No focal neurologic deficit. LABS: Sodium 136, potassium 3.8, BUN 12, creatinine 0.82. White count of 6.92, hemoglobin 11.5, and platelets 213,000. BNP 661.8. Last echocardiogram in August of 2018 showing EF of 30% and LVH. ASSESSMENT AND PLAN: Ms. Zheng is a 73-year-old female who presented to the emergency room with shortness of breath. Chest x-ray suggestive of pulmonary edema. She has an automatic implanted cardioverter defibrillator, history of coronary artery disease, ejection fraction 25%. CURRENT PROBLEMS 1. Canql-zm-sritzac systolic heart failure. 2. Obesity. 3. High likelihood of obstructive sleep apnea. 4. Hypertension. PLAN 1. Agree with continuing the patient on diuretics as ordered by cardiology. 2. IV Rocephin and azithromycin for possible community-acquired pneumonia. 3. Oxygen as needed. Patient will need outpatient sleep study. 4. Lovenox subcutaneous for DVT prophylaxis. Job#: [id number] [place]
[2018-11-07] MEDS: GUAIFENESIN 600MG/DEXTROMETHORPHAN 30MG TABSR PO SCH ×2 (10:44→17:35)
[2018-11-07] MEDS: FUROSEMIDE INJ 100 MG in SODIUM CHLORIDE 0.9% 100 ML 90 ML IV SCH (11:15)
[2018-11-07 15:57] LABS: ANION GAP 15.3 mmol/L (8-16); CALCIUM 8.9 mg/dL (8.4-10.2); CREATININE, SERUM 0.94 mg/dL (0.57-1.11); POTASSIUM 4.3 mmol/L (3.5-5.1)
[2018-11-07] MEDS: FAMOTIDINE 20 MG TAB PO SCH (17:35)
[2018-11-07] MEDS: ENOXAPARIN SOD INJ 40 MG/0.4 ML SYR SC SCH (17:36)
[2018-11-07] MEDS: SIMVASTATIN 40 MG TAB PO SCH (21:15)
--- NOTE | 2018-11-07 23:08 | Progress Note ---
DATE: November 07, 2018 CARDIOLOGY PROGRESS NOTE SUBJECTIVE: The patient denies chest pain. She still complains of shortness of breath and states she does not feel well, although she is not able to provide any further detail. OBJECTIVE VITAL SIGNS: Temperature 97.7 degrees, pulse 78, blood pressure 95/54, and oxygen saturation 100% on 3 L nasal cannula. GENERAL: Obese woman, no acute distress. Awake and alert. LUNGS: Clear to auscultation bilaterally. No wheezes or crackles. CARDIOVASCULAR: Normal rate, regular rhythm. A 2/6 systolic murmur. Normal S1, S2. ABDOMEN: Soft, nontender. EXTREMITIES: No edema. CARDIAC MEDICATIONS 1. Simvastatin 40 mg p.o. nightly. 2. Carvedilol 25 mg p.o. b.i.d. 3. Spironolactone 25 mg p.o. daily. 4. Aspirin 81 mg p.o. daily. 5. Lisinopril 5 mg p.o. daily. 6. Lasix 5 mg an hour. LABS: WBC 6.92, hemoglobin 11.5, hematocrit 34.7, and platelets 213,000. Sodium 134, potassium 4.3, chloride 96, CO2 of 27, BUN 13, and creatinine 0.94. TELEMETRY: Normal sinus rhythm. IMPRESSIONS 1. Chest pain. 2. Yrjxp-tr-lkmkhpc systolic heart failure. 3. Ischemic cardiomyopathy, status post cardiac resynchronization therapy implantable cardioverter defibrillator. 4. Coronary artery disease, status post 3-vessel coronary artery bypass grafting with large inferior transmural scar on the last nuclear stress test in December 2015. 5. Hyponatremia. 6. Hypertension. 7. Hyperlipidemia. 8. Diabetes mellitus. RECOMMENDATIONS: Patient is diuresing well on Lasix drip. We will continue. Continue current cardiac medications. Lisinopril has been discontinued as patient was on Entresto at home. Decrease carvedilol due to hypotension. If blood pressure and creatinine are stable, we will resume Entresto. Thank you for this consult. We will continue to follow. Job#: [id number] CF MTDD
[2018-11-08] VITALS (24 sets, daily range): BP systolic 78–126; BP diastolic 42–93
[2018-11-08] MEDS: ALBUTEROL/IPRATROPIUM 3 ML NEB NEB SCH ×6 (03:20→22:50)
[2018-11-08] MEDS: FAMOTIDINE 20 MG/2 ML VIAL IV SCH (03:42)
[2018-11-08] MEDS: CEFTRIAXONE SOD 1 GM/NS 50 ML 50 ML IV SCH ×2 (03:42→15:45)
[2018-11-08 05:04] LABS: BASOPHILS % 0.6 % (0.0-1.0); EOSINOPHILS # (AUTO) 0.1 (0.0-0.4); EOSINOPHILS % 1.9 % (0.0-6.0); HEMATOCRIT 35.2 % (34.2-44.1); HEMOGLOBIN 11.4 g/dL (12.0-16.0); MEAN CORPUSCULAR HEMOGLOBIN 28.4 pg (28-32); MEAN CORPUSCULAR HGB CONC 32.4 g/dL (31-35); MEAN CORPUSCULAR VOLUME 87.8 fL (81-99); MONOCYTES # (AUTO) 0.8 (0.2-0.8); NEUTROPHILS # (AUTO) 4.8 (2.1-6.9); NEUTROPHILS % 70.2 % (38.7-80.0); PLATELET COUNT 222 x10e3/uL (140-360); RED BLOOD COUNT 4.01 x10e6/uL (3.6-5.1); RED CELL DISTRIBUTION WIDTH 13.3 % (11.7-14.4)
[2018-11-08] MEDS: FUROSEMIDE INJ 100 MG in SODIUM CHLORIDE 0.9% 100 ML 90 ML IV SCH (05:23)
[2018-11-08 05:45] LABS: ANION GAP 16.9 mmol/L (8-16); BLOOD UREA NITROGEN 13 mg/dL (7-26); BUN/CREATININE RATIO 15 (6-25); CALCIUM 9.4 mg/dL (8.4-10.2); CARBON DIOXIDE 28 mmol/L (22-29); CHLORIDE 95 mmol/L (98-107); CREATININE, SERUM 0.88 mg/dL (0.57-1.11); EST GLOMERULAR FILTRATION RATE > 60 ML/MIN (60-); GLUCOSE 126 mg/dL (74-118); POTASSIUM 3.9 mmol/L (3.5-5.1); SODIUM 136 mmol/L (136-145)
[2018-11-08] MEDS: FAMOTIDINE 20 MG TAB PO SCH ×2 (07:30→17:40)
[2018-11-08] MEDS: INSULIN LISPRO 100 UNIT/1 ML 3ML VIAL SQ SCH ×4 (07:30→20:56)
--- NOTE | 2018-11-08 09:06 | Diagnostic Imaging Report ---
EXAMINATION: CHEST SINGLE (PORTABLE) INDICATION: ^CHF ^[id number] ^0839 COMPARISON: 11/06/2018 FINDINGS: AP view Limited by body habitus. TUBES and LINES: Stable dual-lead left chest wall cardiac device in place. LUNGS: Lungs are well inflated. Pulmonary gastric congestion and mild interstitial edema. Linear left upper lobe consolidation, likely combination of scarring and atelectasis. PLEURA: No pleural effusion or pneumothorax. HEART AND MEDIASTINUM: The cardiomediastinal silhouette is enlarged. Median sternotomy wires are again seen. Aorta is tortuous. BONES AND SOFT TISSUES: No acute osseous lesion. Soft tissues are unremarkable. UPPER ABDOMEN: No free air under the diaphragm. IMPRESSION: Markedly enlarged cardiomediastinal silhouette, vascular congestion, and mild interstitial edema. Left upper lobe linear consolidation is probably scarring and appears more prominent from prior x-ray. Underlying/developing pneumonia in this area cannot be entirely excluded. Signed by: Dr. Jone Wallace MD on 11/08/2018 9:03 AM
--- NOTE | 2018-11-08 09:59 | Progress Note ---
DATE: November 08, 2018 CARDIOLOGY PROGRESS NOTE SUBJECTIVE: The patient denies chest pain or shortness of breath. OBJECTIVE VITAL SIGNS: Temperature 98.3 degrees, pulse 70, respiratory rate 19, blood pressure 110/53, and oxygen saturation 100% on 2 L nasal cannula. GENERAL: Obese woman in no acute distress. Awake and alert. LUNGS: Clear to auscultation bilaterally. No wheezes or crackles. CARDIOVASCULAR: Normal rate, regular rhythm. A 2/6 systolic murmur. Normal S1, S2. ABDOMEN: Soft, nontender. EXTREMITIES: No edema. CARDIAC MEDICATIONS 1. Furosemide 5 mg an hour. 2. Simvastatin 40 mg p.o. nightly. 3. Spironolactone 25 mg p.o. daily. 4. Aspirin 81 mg p.o. daily. 5. Carvedilol 12.5 mg p.o. b.i.d. LABS: WBC 6.85, hemoglobin 11.4, hematocrit 35.2, and platelets 222. Sodium 136, potassium 3.9, chloride 95, CO2 of 28, BUN 13, and creatinine 0.88. CHEST X-RAY: Markedly enlarged cardiomediastinal silhouette, vascular congestion, and mild interstitial edema. Left upper lobe lingular consolidation is probably scarring and appears more prominent from prior x-ray. Underlying/developing pneumonia in this area cannot be entirely excluded. TELEMETRY: Normal sinus rhythm with PVCs. IMPRESSIONS 1. Chest pain. 2. Yvbde-py-wsspgka systolic heart failure. 3. Ischemic cardiomyopathy, status post cardiac resynchronization therapy, implantable cardioverter defibrillator. 4. Coronary artery disease, status post 3-vessel coronary artery bypass grafting with large inferior transmural scar on the last nuclear stress test in December 2015. 5. Hyponatremia, resolved. 6. Hypertension. 7. Hyperlipidemia. 8. Diabetes mellitus. RECOMMENDATIONS: Patient continues to diurese with Lasix drip. Monitor urine output closely and titrate as necessary. Continue current cardiac medications. Monitor response to change in carvedilol dosing. If blood pressure and creatinine are stable, resume Entresto. Thank you for this consult. We will continue to follow. Job#: [id number]
[2018-11-08] MEDS: AZITHROMYCIN 500MG/NS 250 ML 250 ML IV SCH (10:33)
[2018-11-08] MEDS: SPIRONOLACTONE 25 MG TAB PO SCH (10:37)
[2018-11-08] MEDS: CARVEDILOL 12.5 MG TAB PO SCH ×2 (10:37→17:40)
[2018-11-08] MEDS: ASPIRIN 81 MG ENTERIC COATED PO SCH (10:37)
[2018-11-08] MEDS: GUAIFENESIN 600MG/DEXTROMETHORPHAN 30MG TABSR PO SCH ×2 (10:38→17:40)
[2018-11-08] MEDS: POTASSIUM CHLORIDE 20 MEQ TAB CR PO SCH (10:38)
[2018-11-08] MEDS ORDERED: SODIUM CHLORIDE 0.9% 250ML 250 ML ONE (15:44)
[2018-11-08] MEDS: ENOXAPARIN SOD INJ 40 MG/0.4 ML SYR SC SCH (17:40)
[2018-11-08] MEDS: SIMVASTATIN 40 MG TAB PO SCH (20:55)
[2018-11-09] VITALS (16 sets, daily range): BP systolic 79–128; BP diastolic 54–79
[2018-11-09] MEDS: ALBUTEROL/IPRATROPIUM 3 ML NEB NEB SCH ×6 (02:30→23:00)
[2018-11-09] MEDS: CEFTRIAXONE SOD 1 GM/NS 50 ML 50 ML IV SCH ×2 (02:31→15:12)
[2018-11-09 05:17] LABS: BASOPHILS # (AUTO) 0.1 (0.0-0.1); BASOPHILS % 0.8 % (0.0-1.0); EOSINOPHILS # (AUTO) 0.3 (0.0-0.4); EOSINOPHILS % 4.1 % (0.0-6.0); HEMATOCRIT 34.4 % (34.2-44.1); HEMOGLOBIN 11.6 g/dL (12.0-16.0); LYMPHOCYTES # (AUTO) 1.4 (1.0-3.2); LYMPHOCYTES % 21.2 % (18.0-39.1); MEAN CORPUSCULAR HEMOGLOBIN 29.6 pg (28-32); MEAN CORPUSCULAR HGB CONC 33.7 g/dL (31-35); MEAN CORPUSCULAR VOLUME 87.8 fL (81-99); MONOCYTES # (AUTO) 0.8 (0.2-0.8); MONOCYTES % 12.8 % (4.4-11.3); NEUTROPHILS % 60.6 % (38.7-80.0); PLATELET COUNT 226 x10e3/uL (140-360); RED BLOOD COUNT 3.92 x10e6/uL (3.6-5.1); RED CELL DISTRIBUTION WIDTH 13.2 % (11.7-14.4)
[2018-11-09 05:38] LABS: ALBUMIN/GLOBULIN RATIO 0.9 (0.8-2.0); ANION GAP 14.3 mmol/L (8-16); CALCIUM 9.4 mg/dL (8.4-10.2); CREATININE, SERUM 0.98 mg/dL (0.57-1.11); POTASSIUM 4.3 mmol/L (3.5-5.1)
[2018-11-09] MEDS: INSULIN LISPRO 100 UNIT/1 ML 3ML VIAL SQ SCH ×4 (07:30→20:24)
[2018-11-09] MEDS: FUROSEMIDE INJ 100 MG in SODIUM CHLORIDE 0.9% 100 ML 90 ML IV SCH (08:00)
[2018-11-09] MEDS: BUDESONIDE 0.5MG/2 ML NEB INH SCH ×2 (08:45→20:00)
[2018-11-09] MEDS ORDERED: SALINE 0.65% NAS SOLN 1 SPRAY BTL PRN (08:45)
[2018-11-09] MEDS: FAMOTIDINE 20 MG TAB PO SCH ×2 (09:20→16:44)
[2018-11-09] MEDS: GUAIFENESIN 600MG/DEXTROMETHORPHAN 30MG TABSR PO SCH ×2 (09:22→16:44)
[2018-11-09] MEDS: POTASSIUM CHLORIDE 20 MEQ TAB CR PO SCH (09:25)
[2018-11-09] MEDS: ASPIRIN 81 MG ENTERIC COATED PO SCH (09:25)
[2018-11-09] MEDS: SPIRONOLACTONE 25 MG TAB PO SCH (09:26)
[2018-11-09] MEDS: CARVEDILOL 12.5 MG TAB PO SCH ×2 (09:26→16:45)
[2018-11-09] MEDS: AZITHROMYCIN 500MG/NS 250 ML 250 ML IV SCH (09:26)
[2018-11-09 16:23] LABS: ANION GAP 16.3 mmol/L (8-16); BLOOD UREA NITROGEN 17 mg/dL (7-26); BUN/CREATININE RATIO 19 (6-25); CALCIUM 8.9 mg/dL (8.4-10.2); CARBON DIOXIDE 25 mmol/L (22-29); CHLORIDE 88 mmol/L (98-107); CREATININE, SERUM 0.88 mg/dL (0.57-1.11); EST GLOMERULAR FILTRATION RATE > 60 ML/MIN (60-); GLUCOSE 178 mg/dL (74-118); POTASSIUM 4.3 mmol/L (3.5-5.1)
[2018-11-09 16:30] LABS: SODIUM 125 mmol/L (136-145)
[2018-11-09] MEDS: ENOXAPARIN SOD INJ 40 MG/0.4 ML SYR SC SCH (17:01)
[2018-11-09] MEDS ORDERED: TOLVAPTAN 15 MG TAB PO SCH ×2 (17:30→17:45)
[2018-11-09] MEDS ORDERED: TOLVAPTAN 30 MG TAB PO SCH (17:45)
--- NOTE | 2018-11-09 20:59 | Progress Note ---
DATE: CARDIOLOGY PROGRESS NOTE SUBJECTIVE: Patient felt dizzy while working with physical therapy and while in bed. Blood pressure has been ranging in the systolics at 90s. Denies any chest pain or shortness of breath. OBJECTIVE: VITAL SIGNS: Temperature is 98.7, heart rate is 69, respirations are 22. Blood pressure is 128/73, lowest reading was 95/79. Respirations 16. Blood pressure currently is 128/73. Oxygen saturation is 99% on 2 liters nasal cannula. GENERAL: She is chronically ill-appearing elderly woman in no apparent distress. CARDIOVASCULAR: Regular rate and rhythm. Normal S1 and S2. There is a mild systolic murmur at the left sternal border. ABDOMEN: Soft, nontender. EXTREMITIES: Trace edema. LABORATORY DATA: Reviewed. Hemoglobin 11.6. Sodium was 133 this morning, currently 125. Creatinine 0.88. CARDIOVASCULAR MEDICATIONS: Reviewed. TELEMETRY MONITORING: Revealed normal sinus rhythm. IMPRESSION: 1. Qgqwp-kk-jjmdyad systolic congestive heart failure. 2. Ischemic cardiomyopathy, status post implantable cardioverter-defibrillator. 3. Coronary artery disease, status post 3-vessel coronary artery bypass graft surgery. 4. Hyponatremia. 5. Hypertension. 6. Hyperlipidemia. 7. Diabetes mellitus. RECOMMENDATIONS: Continue diuresis with Lasix drip. Patient has developed hyponatremia, will give 1 dose of tolvaptan. Otherwise, continue current cardiovascular medications. Hold Entresto at this point in time. If the patient remains hypotensive, consider decreasing carvedilol dose. Thank you for the consultation. Will continue to follow. Job#: [id number]
[2018-11-09] MEDS: SIMVASTATIN 40 MG TAB PO SCH (21:30)
[2018-11-09] MEDS: BUMETANIDE 1 MG TAB PO SCH (21:30)
[2018-11-09] MEDS ORDERED: FUROSEMIDE INJ 10 MG/ML 4 ML VIAL IV SCH (22:00)
--- NOTE | 2018-11-09 23:31 | Consultation ---
DATE OF CONSULTATION: November 09, 2018 HISTORY: Predominantly from chart, partly from patient, partly from nurses. Renal consult for management of hyponatremia. This is a 73-year-old female, currently sitting up, in no apparent distress. Has significant history of coronary artery bypass surgery, congestive heart failure, AICD pacemaker, type 2 diabetes. "I was admitted in the ICU, seen and managed by cardiology who aggressively diuresed." Patient feels much better. She is sitting up, family by bedside, remains on oxygen nasal cannula. Denies prior history of any renal insufficiency, kidney stone disease. States her breathing is better, but over the last few days, patient has developed gradual hyponatremia. CURRENT MEDICATIONS: Albuterol and Atrovent nebulizer, spironolactone 25 mg daily, insulin, furosemide 80 q.8, ceftriaxone, aspirin, simvastatin, potassium chloride 20 mEq daily, carvedilol 12.5 mg p.o. b.i.d. ALLERGIES: TO LEVAQUIN. CURRENT LABS: Hemoglobin 11.6. Chemistries: Sodium 125, potassium 4.3, creatinine 0.88. PHYSICAL EXAMINATION: GENERAL: Awake, alert, sitting up, in no apparent distress. VITAL SIGNS: With blood pressure 112/63, pulse rate 73, afebrile. HEENT: Head and neck: Cornea clear. Oral mucosa moist. LUNGS: Poor gas exchange. Patient not taking deep breath. There is definite end-expiratory rhonchi, perhaps scattered rales. HEART: S1 and S2 audible. Soft 2/6 to 3/6 ejection systolic murmur heard over left sternal border. ABDOMEN: Otherwise soft, nontender. LOWER EXTREMITIES: Shows trace ankle edema. IMPRESSION AND PLAN: Gradual hyponatremia, multifactorial, appropriately diuresed because of congestive heart failure, possibly has poor ejection fraction. Plan on placing the patient on 1200 mL p.o. fluid restriction. Will discontinue Aldactone and IV Lasix at this point in time. Place on salt tablets and Lasix. Continue with diuresis, but with oral diuretics at this point in time. No indications to use tolvaptan at this point in time. Please see orders. Thank you. Job#: [id number]
[2018-11-10] VITALS (11 sets, daily range): BP systolic 94–120; BP diastolic 32–75
[2018-11-10] MEDS: ALBUTEROL/IPRATROPIUM 3 ML NEB NEB SCH ×6 (02:30→23:15)
[2018-11-10] MEDS: CEFTRIAXONE SOD 1 GM/NS 50 ML 50 ML IV SCH ×2 (03:45→15:52)
[2018-11-10 05:09] LABS: BASOPHILS % 0.4 % (0.0-1.0); EOSINOPHILS # (AUTO) 0.2 (0.0-0.4); EOSINOPHILS % 2.8 % (0.0-6.0); HEMATOCRIT 34.7 % (34.2-44.1); HEMOGLOBIN 11.5 g/dL (12.0-16.0); LYMPHOCYTES # (AUTO) 1.3 (1.0-3.2); LYMPHOCYTES % 17.9 % (18.0-39.1); MEAN CORPUSCULAR HEMOGLOBIN 28.8 pg (28-32); MEAN CORPUSCULAR HGB CONC 33.1 g/dL (31-35); MEAN CORPUSCULAR VOLUME 86.8 fL (81-99); MONOCYTES # (AUTO) 0.8 (0.2-0.8); MONOCYTES % 11.3 % (4.4-11.3); NEUTROPHILS # (AUTO) 4.8 (2.1-6.9); NEUTROPHILS % 67.3 % (38.7-80.0); PLATELET COUNT 241 x10e3/uL (140-360); RED CELL DISTRIBUTION WIDTH 13.1 % (11.7-14.4)
[2018-11-10 05:31] LABS: ALANINE AMINOTRANSFERASE 8 IU/L (0-55); ALBUMIN 3.2 g/dL (3.5-5.0); ALKALINE PHOSPHATASE 57 IU/L (40-150); ANION GAP 14.9 mmol/L (8-16); BLOOD UREA NITROGEN 15 mg/dL (7-26); BUN/CREATININE RATIO 17 (6-25); CALCIUM 9.5 mg/dL (8.4-10.2); CARBON DIOXIDE 32 mmol/L (22-29); CHLORIDE 90 mmol/L (98-107); CREATININE, SERUM 0.89 mg/dL (0.57-1.11); EST GLOMERULAR FILTRATION RATE > 60 ML/MIN (60-); GLUCOSE 110 mg/dL (74-118); POTASSIUM 3.9 mmol/L (3.5-5.1)
[2018-11-10 06:10] LABS: SODIUM 133 mmol/L (136-145)
[2018-11-10] MEDS: BUDESONIDE 0.5MG/2 ML NEB INH SCH ×2 (07:00→20:00)
[2018-11-10] MEDS: INSULIN LISPRO 100 UNIT/1 ML 3ML VIAL SQ SCH ×4 (07:30→22:49)
[2018-11-10] MEDS: BUMETANIDE 1 MG TAB PO SCH ×3 (08:45→22:47)
[2018-11-10] MEDS: CARVEDILOL 12.5 MG TAB PO SCH ×2 (08:50→17:00)
[2018-11-10] MEDS: FAMOTIDINE 20 MG TAB PO SCH ×2 (09:26→17:21)
[2018-11-10] MEDS: AZITHROMYCIN 500MG/NS 250 ML 250 ML IV SCH (09:26)
[2018-11-10] MEDS: GUAIFENESIN 600MG/DEXTROMETHORPHAN 30MG TABSR PO SCH ×2 (09:26→17:21)
[2018-11-10] MEDS: ASPIRIN 81 MG ENTERIC COATED PO SCH (09:26)
[2018-11-10] MEDS: SODIUM CHLORIDE 1 GM TAB PO SCH ×2 (09:28→17:21)
--- NOTE | 2018-11-10 09:44 | Progress Note ---
DATE: November 10, 2018 CARDIOLOGY PROGRESS NOTE SUBJECTIVE: The patient denies chest pain or shortness of breath. She is asking for more water. OBJECTIVE VITAL SIGNS: Temperature 97.4 degrees, pulse 69, respiratory rate 18, blood pressure 107/59, and oxygen saturation 100% on 2 L nasal cannula. GENERAL: Obese woman in no acute distress. Awake and alert. LUNGS: Clear to auscultation bilaterally. No wheezes or crackles. CARDIOVASCULAR: Normal rate, regular rhythm. Normal S1, S2. A 2/6 systolic murmur at the left sternal border. ABDOMEN: Soft, nontender. EXTREMITIES: No edema. CARDIAC MEDICATIONS 1. Bumex 2 mg p.o. t.i.d. 2. Simvastatin 40 mg p.o. nightly. 3. Carvedilol 12.5 mg p.o. b.i.d. 4. Aspirin 81 mg p.o. daily LABS: WBC 7.14, hemoglobin 11.5, hematocrit 34.7, and platelets 241. Sodium 133, potassium 3.9, chloride 90, CO2 of 32, BUN 15, and creatinine 0.89. TELEMETRY: Normal sinus rhythm. IMPRESSIONS 1. Navnn-tc-petexgd systolic heart failure. 2. Ischemic cardiomyopathy, status post cardiac resynchronization therapy, implantable cardioverter defibrillator. 3. Coronary artery disease, status post 3-vessel coronary artery bypass grafting with large inferior transmural scar on the last nuclear stress test in December 2015. 4. Hyponatremia, improving. 5. Chest pain. 6. Hypertension. 7. Hyperlipidemia. 8. Diabetes mellitus. RECOMMENDATIONS: Check BNP and chest x-ray. Suspect patient needs increased diuresis. Hyponatremia has improved with dose of tolvaptan. Decrease carvedilol. If blood pressure and creatinine remain stable, plan to resume Entresto. Continue current cardiac medications otherwise. Thank you for this consult. We will continue to follow. Job#: [id number]
--- NOTE | 2018-11-10 10:28 | Diagnostic Imaging Report ---
Examination: Single AP view of the chest. COMPARISON: 11/2018 INDICATION: Shortness of breath DISCUSSION: Left subclavian approach implantable cardiac device body and leads are unchanged in position. The lungs remain well-inflated. Stable linear opacity in the left apex, likely scar. No new consolidation or effusion. Stable cardiomediastinal contour with moderate cardiomegaly, postsurgical changes of the mediastinum, and interstitial edema. No acute osseous abnormality. IMPRESSION: Stable cardiomegaly and interstitial edema relative to 11/08/2018. Signed by: Dr. Balaji Milan M.D. on 11/10/2018 10:24 AM
[2018-11-10] MEDS ORDERED: BUMETANIDE INJ 0.25MG/ML 4ML VIAL IV SCH (15:00)
[2018-11-10] MEDS: ENOXAPARIN SOD INJ 40 MG/0.4 ML SYR SC SCH (17:21)
[2018-11-10] MEDS: SIMVASTATIN 40 MG TAB PO SCH (22:47)
[2018-11-11] MEDS: CEFTRIAXONE SOD 1 GM/NS 50 ML 50 ML IV SCH ×2 (03:00→15:00)
[2018-11-11] MEDS: ALBUTEROL/IPRATROPIUM 3 ML NEB NEB SCH ×4 (03:00→15:20)
[2018-11-11 03:55] VITALS: BP 116/66
[2018-11-11 05:13] LABS: BASOPHILS % 0.6 % (0.0-1.0); EOSINOPHILS # (AUTO) 0.2 (0.0-0.4); EOSINOPHILS % 2.5 % (0.0-6.0); HEMATOCRIT 35.4 % (34.2-44.1); HEMOGLOBIN 11.6 g/dL (12.0-16.0); LYMPHOCYTES # (AUTO) 1.1 (1.0-3.2); LYMPHOCYTES % 15.2 % (18.0-39.1); MEAN CORPUSCULAR HEMOGLOBIN 28.6 pg (28-32); MEAN CORPUSCULAR HGB CONC 32.8 g/dL (31-35); MEAN CORPUSCULAR VOLUME 87.4 fL (81-99); MONOCYTES # (AUTO) 0.7 (0.2-0.8); MONOCYTES % 10.1 % (4.4-11.3); NEUTROPHILS # (AUTO) 4.9 (2.1-6.9); NEUTROPHILS % 71.3 % (38.7-80.0); PLATELET COUNT 242 x10e3/uL (140-360); RED BLOOD COUNT 4.05 x10e6/uL (3.6-5.1); RED CELL DISTRIBUTION WIDTH 13.2 % (11.7-14.4)
[2018-11-11 05:39] LABS: ANION GAP 15.6 mmol/L (8-16); BLOOD UREA NITROGEN 15 mg/dL (7-26); BUN/CREATININE RATIO 17 (6-25); CALCIUM 9.4 mg/dL (8.4-10.2); CARBON DIOXIDE 34 mmol/L (22-29); CHLORIDE 94 mmol/L (98-107); CREATININE, SERUM 0.89 mg/dL (0.57-1.11); EST GLOMERULAR FILTRATION RATE > 60 ML/MIN (60-); GLUCOSE 102 mg/dL (74-118); POTASSIUM 3.6 mmol/L (3.5-5.1); SODIUM 140 mmol/L (136-145)
[2018-11-11] MEDS: BUDESONIDE 0.5MG/2 ML NEB INH SCH (07:23)
[2018-11-11] MEDS: INSULIN LISPRO 100 UNIT/1 ML 3ML VIAL SQ SCH ×2 (07:30→11:30)
[2018-11-11 08:11] VITALS: BP 139/88
[2018-11-11] MEDS: FAMOTIDINE 20 MG TAB PO SCH (08:30)
[2018-11-11 09:00] VITALS: BP 139/88
[2018-11-11] MEDS: AZITHROMYCIN 500MG/NS 250 ML 250 ML IV SCH (09:07)
[2018-11-11] MEDS: BUMETANIDE 1 MG TAB PO SCH ×2 (09:07→15:00)
[2018-11-11] MEDS: ASPIRIN 81 MG ENTERIC COATED PO SCH (09:07)
[2018-11-11] MEDS: SODIUM CHLORIDE 1 GM TAB PO SCH (09:08)
[2018-11-11] MEDS: GUAIFENESIN 600MG/DEXTROMETHORPHAN 30MG TABSR PO SCH (09:08)
[2018-11-11] MEDS: CARVEDILOL 12.5 MG TAB PO SCH (09:08)
[2018-11-11 11:30] VITALS: BP 115/75
[2018-11-11] MEDS ORDERED: GUAIFENESIN 600MG/DEXTROMETHORPHAN 30MG TABSR PO PRN (11:30)
--- NOTE | 2018-11-11 12:34 | Progress Note ---
DATE: November 11, 2018 CARDIOLOGY PROGRESS NOTE SUBJECTIVE: The patient denies chest pain. She reports her shortness of breath is better. OBJECTIVE VITALS: Temperature 98.8 degrees, pulse 78, respiratory rate 20, blood pressure 139/88, oxygen saturation 99% on 2 L nasal cannula. GENERAL: A morbidly obese woman in no acute distress. Awake and alert. LUNGS: Clear to auscultation bilaterally. No wheezes or crackles. CARDIOVASCULAR: Normal rate. Regular rhythm. Normal S1 and S2. A 2/6 systolic murmur at the left sternal border. ABDOMEN: Soft and nontender. EXTREMITIES: No edema. CARDIAC MEDICATIONS 1. Carvedilol 6.25 mg p.o. b.i.d. 2. Bumex 2 mg p.o. t.i.d. 3. Aspirin 81 mg p.o. daily. 4. Simvastatin 40 mg p.o. at bedtime. 5. Levothyroxine 40 mg subcutaneous daily. LABS: WBC 6.9, hemoglobin 11.6, hematocrit 35.4, and platelets 242,000. Sodium 140, potassium 3.6, chloride 94, CO2 34, BUN 15, creatinine 0.89. Telemetry is normal sinus rhythm. IMPRESSION 1. Suphz-bq-ifjixgl systolic heart failure. 2. Ischemic cardiomyopathy: Status post cardiac resynchronization therapy, implantable cardioverter defibrillator. 3. Coronary artery disease: Status post 3-vessel coronary artery bypass graft with large inferior transmural scar on the last nuclear stress test in December 2015. 4. Hyponatremia, improved. 5. Chest pain. 6. Hypertension. 7. Hyperlipidemia. 8. Diabetes mellitus. RECOMMENDATIONS: Continue current cardiac medications. The patient has been negative on p.o. Bumex. Monitor closely. Hyponatremia has resolved. Blood pressure has improved with decrease in carvedilol. If blood pressure and creatinine remain stable, plan to resume Entresto. Continue current cardiac medications otherwise. Thank you for this consult. We will continue to follow. Job#: [id number] [place]
--- NOTE | 2018-11-11 13:10 | Progress Note ---
DATE: November 11, 2018 Denies any trouble breathing except when she walks long distances. OBJECTIVE VITALS: Temperature 98.8, pulse 70, blood pressure 139/88. CHEST: Now clear. EXTREMITIES: No edema. NEURO: Alert and appropriate. LABS: Sodium up to 140, K 3.6, serum CO2 34. MEDICATIONS: Reviewed. She is on Bumex p.o. t.i.d. ASSESSMENT: Hyponatremia secondary to fluid overload. PLAN: Continue p.o. loop diuretic. Will sign off. Job#: [id number]
== END 2018-11-11 16:04 | DRG 291 ==
LOC: ER 12:14 → ERHOLD 15:00 → ICU 18:16 → IMCU 11-09 14:26
PROVIDERS: ADMIT Internal Medicine; ATTEND Internal Medicine
DX: I11.0 Hypertensive heart disease with heart failure (principal); J18.9 Pneumonia, unspecified organism; E87.1 Hypo-osmolality and hyponatremia; J44.0 Chronic obstructive pulmonary disease with (acute) lower respiratory infection; J44.1 Chronic obstructive pulmonary disease with (acute) exacerbation; I50.23 Acute on chronic systolic (congestive) heart failure; I25.119 Atherosclerotic heart disease of native coronary artery with unspecified angina pectoris; E78.5 Hyperlipidemia, unspecified; E11.9 Type 2 diabetes mellitus without complications; J20.9 Acute bronchitis, unspecified; G47.33 Obstructive sleep apnea (adult) (pediatric); I25.5 Ischemic cardiomyopathy; Z79.84 Long term (current) use of oral hypoglycemic drugs; Z95.1 Presence of aortocoronary bypass graft; Z95.810 Presence of automatic (implantable) cardiac defibrillator
CPT/HCPCS: 36415; 36600; 51700; 71045; 80048; 80053; 80061; 81001; 82550; 82553; 82805; 82948; 83605; 83735; 83880; 84484; 85025; 85610; 85730; 87040; 87086; 93005; 94640; 96360; 96372; 97139; 99284; J0456; J0696; J1650; J1940; J2405; J7050

== ENCOUNTER 2019-02-28 09:21 | Emergency (ER) | payer MEDICARE ==
[~2019-02-28] VITALS: Ht 269.2 cm; Wt 86.6 kg
[~2019-02-28 09:21] MED LIST changes: +NAPROXEN250 MG PO
[2019-02-28] MEDS ORDERED: TETANUS/DIPHTHERIA TOX ADULT 0.5 ML SYR IM ONE (10:15)
--- NOTE | 2019-02-28 11:26 | Diagnostic Imaging Report ---
CT BRAIN WO HISTORY: Fall, laceration to back of head COMPARISON: Head CT 07/07/2014 TECHNIQUE: Noncontrast axial scans were obtained from skull base to the vertex. Coronal and sagittal reconstructions obtained from the axial data. One or more of the following dose reduction techniques were used: Automated exposure control, adjustment of the mA and/or kV according to patient size, and/or utilization of iterative reconstruction technique. Beam hardening artifacts obscure some details. DISCUSSION: Scalp/Skull: Small right parietal scalp hematoma with superficial laceration is noted. No calvarial fracture is seen. Brain sulci: Appropriate for patient's age. Ventricles: Normal in size and configuration. No hydrocephalus. Extra-axial spaces: No masses or fluid collections. Carotid siphon calcifications are present. Parenchyma: Mild periventricular white matter hypodensities are likely chronic microvascular ischemic changes. Otherwise, no mass, hemorrhage, or large vascular territory acute infarct. Dural sinuses: No abnormal densities. Sellar/Suprasellar region: Intact. Skull base: Atlantoaxial arthrosis is partially visualized. Incidental findings: Both ocular lenses are thinned. IMPRESSION: 1. No acute intracranial abnormalities. 2. Mild to moderate supratentorial chronic microvascular ischemic change. Signed by: Dr. Chace Peterson M.D. on 02/28/2019 11:23 AM
--- NOTE | 2019-02-28 11:31 | Diagnostic Imaging Report ---
CT CERVICAL SPINE WO HISTORY: Fall COMPARISON: Concurrent head CT TECHNIQUE: CT of the cervical spine without contrast. Sagittal and coronal reformations were created. One or more of the following dose reduction techniques were used: Automated exposure control, adjustment of the mA and/or kV according to patient size, and/or utilization of iterative reconstruction technique. FINDINGS: Bone demineralization and streak artifacts limit evaluation. Cervical lordosis is straightened. There is no scoliosis or subluxation. No definite acute fracture or compression deformity is seen. The craniocervical junction is intact. No gross spinal canal masses are seen. The paravertebral and paraspinal soft tissues are unremarkable. Mild multilevel spondylosis is present. 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 Mild to moderate bilateral carotid bulb calcified plaque is present. Cardiac device leads are partially visualized. IMPRESSION: No acute osseous abnormalities. Mild multilevel spondylosis. Signed by: Dr. Chace Peterson M.D. on 02/28/2019 11:28 AM
[2019-02-28] MEDS ORDERED: LIDOCAINE 1% W/EPINEPHRINE 20 ML VIAL ONE (12:12)
[2019-02-28] MEDS ORDERED: LIDOCAINE 1% W/EPINEPHRINE 20 ML VIAL INJ ONE (12:15)
[2019-02-28 12:37] VITALS: BP 123/66
== END 2019-02-28 12:47 | disposition home or self-care (01) ==
LOC: ER 09:21
DX: S00.03XA Contusion of scalp, initial encounter (principal); W01.0XXA Fall on same level from slipping, tripping and stumbling without subsequent striking against object, initial encounter; Y93.01 Activity, walking, marching and hiking; Y92.018 Other place in single-family (private) house as the place of occurrence of the external cause; I11.0 Hypertensive heart disease with heart failure; I50.9 Heart failure, unspecified; E11.9 Type 2 diabetes mellitus without complications; I25.10 Atherosclerotic heart disease of native coronary artery without angina pectoris; Z95.1 Presence of aortocoronary bypass graft; E78.5 Hyperlipidemia, unspecified; Z82.49 Family history of ischemic heart disease and other diseases of the circulatory system; Z79.84 Long term (current) use of oral hypoglycemic drugs
CPT/HCPCS: 70450; 72125; 90471; 90714; 99283

== ENCOUNTER 2019-09-05 14:51 | Emergency (ER) | payer MEDICARE ==
[~2019-09-05] VITALS: Ht 147.3 cm; Wt 86.6 kg
--- NOTE | 2019-09-05 17:11 | Diagnostic Imaging Report ---
EXAMINATION: CHEST SINGLE (PORTABLE) COMPARISON: Chest x-ray 11/10/2018 INDICATION: Cough, shortness of breath ^ERMD ORDER ^Y DISCUSSION: Frontal view of the chest obtained at 1647 hours. HEART AND MEDIASTINUM: The heart is enlarged with stable cardiac bypass changes. The pulmonary arteries are enlarged and similar morphology suggesting pulmonary artery hypertension. LINES: Pacer/defibrillator wires terminate in the right atrium and right ventricle. LUNGS: Diffuse hyperinflation consistent with COPD. No pneumonia or pulmonary edema. PLEURA: No pleural effusion or pneumothorax. BONES AND SOFT TISSUES: No focal osseous lesion. Median sternotomy wires are intact. The soft tissues are normal. IMPRESSION: Stable cardiomegaly and enlarged pulmonary arteries suggestive of pulmonary artery hypertension. No acute cardiopulmonary process. Stable postoperative changes and cardiac hardware as described above. Pulmonary hyperinflation suggestive of COPD. No new pulmonary findings. Signed by: Dr. Manuel Sanchez MD on 09/05/2019 5:07 PM
[2019-09-05 19:45] LABS: BASOPHILS # (AUTO) 0.1 (0.0-0.1); BASOPHILS % 0.9 % (0.0-1.0); EOSINOPHILS # (AUTO) 0.3 (0.0-0.4); EOSINOPHILS % 3.5 % (0.0-6.0); HEMATOCRIT 40.7 % (34.2-44.1); HEMOGLOBIN 12.8 g/dL (12.0-16.0); LYMPHOCYTES # (AUTO) 1.6 (1.0-3.2); LYMPHOCYTES % 21.5 % (18.0-39.1); MEAN CORPUSCULAR HEMOGLOBIN 26.7 pg (28-32); MEAN CORPUSCULAR HGB CONC 31.4 g/dL (31-35); MONOCYTES # (AUTO) 1.3 (0.2-0.8); MONOCYTES % 17.3 % (4.4-11.3); NEUTROPHILS # (AUTO) 4.2 (2.1-6.9); NEUTROPHILS % 56.7 % (38.7-80.0); PLATELET COUNT 204 x10e3/uL (140-360); RED BLOOD COUNT 4.79 x10e6/uL (3.6-5.1); RED CELL DISTRIBUTION WIDTH 15.1 % (11.7-14.4)
[2019-09-05] MEDS ORDERED: ALBUTEROL/IPRATROPIUM 3 ML NEB NEB ONE (19:45)
--- NOTE | 2019-09-05 19:45 | NUR ---
RT notified of ordered neb tx.
[2019-09-05 19:53] LABS: INR 1.01; PROTHROMBIN TIME 13.8 seconds (11.9-14.5)
[2019-09-05 21:48] LABS: ALANINE AMINOTRANSFERASE 15 IU/L (0-55); ALBUMIN/GLOBULIN RATIO 1.1 (0.8-2.0); ALKALINE PHOSPHATASE 73 IU/L (40-150); ANION GAP 14.8 mmol/L (8-16); BLOOD UREA NITROGEN 13 mg/dL (7-26); BUN/CREATININE RATIO 16 (6-25); CALCIUM 9.6 mg/dL (8.4-10.2); CARBON DIOXIDE 26 mmol/L (22-29); CHLORIDE 99 mmol/L (98-107); CREATINE KINASE 61 IU/L (29-168); CREATININE, SERUM 0.81 mg/dL (0.57-1.11); EST GLOMERULAR FILTRATION RATE > 60 ML/MIN (60-); GLUCOSE 122 mg/dL (74-118); POTASSIUM 4.8 mmol/L (3.5-5.1); SODIUM 135 mmol/L (136-145)
[2019-09-05 22:10] VITALS: BP 151/84
== END 2019-09-05 22:19 | disposition home or self-care (01) ==
LOC: ER 14:51
DX: J20.9 Acute bronchitis, unspecified (principal); R05 Cough; Z88.1 Allergy status to other antibiotic agents; I10 Essential (primary) hypertension; E11.9 Type 2 diabetes mellitus without complications; E78.5 Hyperlipidemia, unspecified; I25.10 Atherosclerotic heart disease of native coronary artery without angina pectoris; Z95.1 Presence of aortocoronary bypass graft; Z79.4 Long term (current) use of insulin
CPT/HCPCS: 36415; 71045; 80053; 82550; 82553; 83880; 84484; 85025; 85610; 85730; 87400; 93005; 94640; 99284

== ENCOUNTER 2019-09-10 16:41 | Inpatient (IN) | payer MEDICARE ==
[~2019-09-10] VITALS: Ht 147.3 cm; Wt 84.9 kg
--- NOTE | 2019-09-10 17:13 | Diagnostic Imaging Report ---
EXAMINATION: CHEST 2 VIEWS INDICATION: Shortness of breath, weakness ^SOB ^[id number] ^1700 ^Y COMPARISON: Chest x-ray 09/05/2019 FINDINGS: PA and lateral views TUBES and LINES: The pacemaker is intact. LUNGS: Diffuse hyperinflation. Pulmonary arteries are enlarged and stable in morphology. There is no evidence of pneumonia or pulmonary edema. PLEURA: No pleural effusion or pneumothorax. HEART AND MEDIASTINUM: Stable cardiomegaly and cardiac bypass changes. BONES AND SOFT TISSUES: Median sternotomy wires are intact. There are degenerative changes of the spine. No focal osseous lesions. Soft tissues are unremarkable. UPPER ABDOMEN: No free air under the diaphragm. IMPRESSION: Cardiomegaly and pulmonary artery hypertension. Stable pulmonary hyperinflation suggestive of COPD/emphysema. No acute cardiopulmonary process. Signed by: Dr. Manuel Sanchez MD on 09/10/2019 5:10 PM
[2019-09-10] MEDS ORDERED: ALBUTEROL SULF 0.5% NEB SOLN 20 ML BTL ONE (17:41)
[2019-09-10 17:55] LABS: BASOPHILS # (AUTO) 0.1 (0.0-0.1); BASOPHILS % 0.7 % (0.0-1.0); EOSINOPHILS # (AUTO) 0.1 (0.0-0.4); EOSINOPHILS % 1.6 % (0.0-6.0); HEMATOCRIT 36.4 % (34.2-44.1); HEMOGLOBIN 11.5 g/dL (12.0-16.0); LYMPHOCYTES # (AUTO) 1.4 (1.0-3.2); LYMPHOCYTES % 16.4 % (18.0-39.1); MEAN CORPUSCULAR HEMOGLOBIN 26.7 pg (28-32); MEAN CORPUSCULAR HGB CONC 31.6 g/dL (31-35); MEAN CORPUSCULAR VOLUME 84.5 fL (81-99); MONOCYTES # (AUTO) 0.7 (0.2-0.8); MONOCYTES % 8.6 % (4.4-11.3); NEUTROPHILS # (AUTO) 6.2 (2.1-6.9); NEUTROPHILS % 72.4 % (38.7-80.0); PLATELET COUNT 206 x10e3/uL (140-360); RED BLOOD COUNT 4.31 x10e6/uL (3.6-5.1); RED CELL DISTRIBUTION WIDTH 15.2 % (11.7-14.4)
[2019-09-10] MEDS ORDERED: ALBUTEROL/IPRATROPIUM 3 ML NEB NEB ONE (18:00)
[2019-09-10] MEDS ORDERED: METHYLPREDNISOLONE SOD SUCC 125 MG/2ML VIAL IV ONE (18:00)
[2019-09-10 18:07] LABS: INR 1.06; PROTHROMBIN TIME 14.3 seconds (11.9-14.5)
[2019-09-10 18:14] LABS: ALANINE AMINOTRANSFERASE 22 IU/L (0-55); ALBUMIN 3.6 g/dL (3.5-5.0); ALBUMIN/GLOBULIN RATIO 1.1 (0.8-2.0); ALKALINE PHOSPHATASE 69 IU/L (40-150); ANION GAP 12.4 mmol/L (8-16); BLOOD UREA NITROGEN 13 mg/dL (7-26); BUN/CREATININE RATIO 18 (6-25); CALCIUM 9.4 mg/dL (8.4-10.2); CARBON DIOXIDE 26 mmol/L (22-29); CHLORIDE 105 mmol/L (98-107); CREATININE, SERUM 0.74 mg/dL (0.57-1.11); EST GLOMERULAR FILTRATION RATE > 60 ML/MIN (60-); GLUCOSE 139 mg/dL (74-118); POTASSIUM 4.4 mmol/L (3.5-5.1); SODIUM 139 mmol/L (136-145)
[2019-09-10] MEDS ORDERED: ALBUTEROL SULF 0.083% NEB SOLN 3 ML NEB NEB STA (20:11)
[2019-09-10] MEDS ORDERED: SODIUM CHLORIDE 0.9% 50ML 50 ML ONE (20:30)
[2019-09-10] MEDS ORDERED: IOPAMIDOL 370 MG/ML 200 ML INFUS..BTL INJ ONE (20:30)
--- NOTE | 2019-09-10 20:35 | NUR ---
PT RETURNED FROM CT AT THIS TIME, SATS IN HIGH 80'S. O2 3L PER NC PLACED ON PT AND DR QUINONES NOTIFIED. ORDERS RECEIVED FOR AN ADDITIONAL BREATHING TX AND BIPAP FOR 30 MINS WITH AN ABG PRIOR TO PLACEMENT OF BIPAP. WILL CONTINUE TO MONITOR.
[2019-09-10 20:57] LABS: ABG HCO3 24 mmol/L (23-28); ABG PCO2 42 mmHg (41-51); ABG PH 7.37 (7.31-7.41); ABG PO2 75 mmHg (80-105)
--- NOTE | 2019-09-10 20:57 | Diagnostic Imaging Report ---
EXAM: CT Chest WITH contrast- Pulmonary Embolism Protocol INDICATION: Shortness of breath, query pulmonary embolism. COMPARISON: None TECHNIQUE: Chest was scanned utilizing a multidetector helical scanner from the lung apex through the level of the diaphragm after administration of IV contrast. Thin section reconstructions were obtained with special concentration on the pulmonary arteries. Coronal and sagittal reformations were obtained. Pulmonary embolism protocol was performed. IV CONTRAST: 100 mL of Isovue 370 RADIATION DOSE: Total DLP: 553.5 mGy*cm Estimated effective dose: (DLP x 0.014 x size factor) mSv COMPLICATIONS: None Dose modulation, iterative reconstruction, and/or weight based adjustment of the mA/kV was utilized to reduce the radiation dose to as low as reasonably achievable. COMPLICATIONS: None FINDINGS: LINES/ TUBES: Left-sided AICD. With leads terminating in the right atrial appendage and right ventricle. PULMONARY ARTERIES: No filling defect is identified within the pulmonary arteries to the segmental level. The subsegmental pulmonary arteries are not well opacified. Motion artifact limits evaluation in the lung bases. Main pulmonary artery measures 3.7 cm in diameter. LUNGS AND AIRWAYS: The central airways are patent. No evidence of lobar consolidation. There are multifocal groundglass opacities. Minimal patchy dependent atelectasis. PLEURA: The pleural spaces are clear. HEART AND MEDIASTINUM: The thyroid gland is not well evaluated. No mediastinal, hilar or axillary lymphadenopathy. Moderate atherosclerotic calcifications of the thoracic aorta and branch vessels. Coronary atherosclerosis. Status post CABG. Moderate cardiomegaly. UPPER ABDOMEN: Limited contrast-enhanced views of the upper abdomen. Reflux of contrast into the IVC, suggestive of right heart dysfunction. Low-attenuation nodule in the right adrenal gland, measuring up to 2.6 cm (series 2, image 100; -8 HU), consistent with adrenal adenoma. Small hiatal hernia. BONES: No acute osseous abnormality. No suspicious lytic or blastic lesions. SOFT TISSUES: Unremarkable. IMPRESSION: No evidence of pulmonary embolism to the level of the segmental pulmonary arteries. Cardiomegaly with multifocal groundglass opacities, suggestive of pulmonary edema, although infection can have a similar appearance. Dilated main pulmonary artery, suggestive of pulmonary arterial hypertension. Signed by: Dr. Chaka Cerna MD on 09/10/2019 8:53 PM
[2019-09-10] MEDS ORDERED: ACETAMINOPHEN 325 MG TAB PO PRN (21:00)
[2019-09-10] MEDS ORDERED: DEXTROSE 50% SYRINGE 50 ML IV PRN (22:15)
[2019-09-10] MEDS: FUROSEMIDE INJ 10 MG/ML 4 ML VIAL IV SCH (23:45)
[2019-09-10] MEDS: METHYLPREDNISOLONE SOD SUCC 40 MG/ML VIAL 1ML IV SCH (23:45)
[2019-09-10 23:50] VITALS: BP 143/78
[2019-09-11] MEDS: CEFTRIAXONE SOD 1 GM/NS 50 ML 50 ML IV SCH (00:10)
[2019-09-11] MEDS: ALBUTEROL/IPRATROPIUM 3 ML NEB NEB PRN (00:21)
[2019-09-11 01:00] VITALS: BP 143/78
[2019-09-11 04:00] VITALS: BP 106/54
[2019-09-11] MEDS: METHYLPREDNISOLONE SOD SUCC 40 MG/ML VIAL 1ML IV SCH ×3 (06:45→16:35)
--- NOTE | 2019-09-11 07:00 | NUR ---
RECEIVED PATIENT RESTING IN BED NO S/S OF DISTRESS. BED LOW, WHEELS LOCKED, SIDE RAILS X2. CALL LIGHT IN REACH WILL CONTINUE TO MONITOR PATIENT.
[2019-09-11 07:15] LABS: BASOPHILS % 0.1 % (0.0-1.0); HEMOGLOBIN 11.4 g/dL (12.0-16.0); LYMPHOCYTES % 9.6 % (18.0-39.1); MEAN CORPUSCULAR HEMOGLOBIN 26.4 pg (28-32); MEAN CORPUSCULAR HGB CONC 31.7 g/dL (31-35); MEAN CORPUSCULAR VOLUME 83.3 fL (81-99); MONOCYTES # (AUTO) 0.3 (0.2-0.8); MONOCYTES % 2.3 % (4.4-11.3); NEUTROPHILS # (AUTO) 9.4 (2.1-6.9); NEUTROPHILS % 87.7 % (38.7-80.0); PLATELET COUNT 190 x10e3/uL (140-360); RED BLOOD COUNT 4.32 x10e6/uL (3.6-5.1)
[2019-09-11 07:32] LABS: ALANINE AMINOTRANSFERASE 20 IU/L (0-55); ALBUMIN 3.1 g/dL (3.5-5.0); ALBUMIN/GLOBULIN RATIO 0.9 (0.8-2.0); ALKALINE PHOSPHATASE 69 IU/L (40-150); ANION GAP 13.1 mmol/L (8-16); BLOOD UREA NITROGEN 16 mg/dL (7-26); BUN/CREATININE RATIO 20 (6-25); CALCIUM 9.2 mg/dL (8.4-10.2); CARBON DIOXIDE 27 mmol/L (22-29); CHLORIDE 101 mmol/L (98-107); CHOL/HDL RATIO 2.7 (3.0-3.6); CHOLESTEROL 129 MD/DL (0-199); CREATININE, SERUM 0.81 mg/dL (0.57-1.11); EST GLOMERULAR FILTRATION RATE > 60 ML/MIN (60-); GLUCOSE 244 mg/dL (74-118); HDL CHOLESTEROL 48 MG/DL (40-60); LDL CHOLESTEROL 71 MG/DL (60-130); MAGNESIUM 1.8 MG/DL (1.3-2.1); POTASSIUM 4.1 mmol/L (3.5-5.1); SODIUM 137 mmol/L (136-145); TRIGLYCERIDES 50 MG/DL (0-149)
[2019-09-11 07:40] VITALS: BP 147/74
[2019-09-11] MEDS: FAMOTIDINE 20 MG TAB PO SCH ×2 (08:44→16:35)
[2019-09-11] MEDS: CARVEDILOL 12.5 MG TAB PO SCH ×2 (08:44→16:09)
[2019-09-11] MEDS: SPIRONOLACTONE 25 MG TAB PO SCH (08:44)
[2019-09-11] MEDS: FUROSEMIDE INJ 10 MG/ML 4 ML VIAL IV SCH ×2 (08:44→21:47)
[2019-09-11] MEDS: ASPIRIN 81 MG CHEW TAB PO SCH (08:44)
[2019-09-11] MEDS: AZITHROMYCIN 250 MG TAB PO SCH (08:44)
[2019-09-11] MEDS: INSULIN LISPRO 100 UNIT/1 ML 3ML VIAL SQ SCH ×4 (08:45→21:46)
[2019-09-11 08:56] VITALS: BP 147/74
[2019-09-11] MEDS: LISINOPRIL 2.5 MG TAB PO SCH (09:00)
--- NOTE | 2019-09-11 09:15 | NUR ---
PATIENT A/O X3, SOB ON EXERTION. PATIENT ON 3LNC. TELEMETRY #19 SR. LEFT AC 20 GAUGE IV SL. PATIENT VOIDS IN BEDSIDE COMMODE. NO PAIN AT THIS TIME. VS STABLE. FAMILY AT BEDSIDE. CALL LIGHT IN REACH WILL CONTINUE TO MONITOR PATIENT.
[2019-09-11 09:32] LABS: BILIRUBIN,URINE NEGATIVE (NEGATIVE); CLARITY,URINE CLEAR (CLEAR); COLOR,URINE YELLOW (YELLOW); KETONES,URINE NEGATIVE (NEGATIVE); LEUKOCYTE ESTERASE ,URINE NEGATIVE (NEGATIVE); NITRITE,URINE NEGATIVE (NEGATIVE); PROTEIN,URINE DIPSTICK NEGATIVE (NEGATIVE); URINE UROBILINOGEN 0.2 mg/dL (0.2 - 1)
[2019-09-11 09:46] LABS: BACTERIA,URINE FEW /HPF; EPITHELIAL CELLS,URINE MODERATE /LPF; RBC,URINE 0-5 /HPF (0-5); WBC,URINE (MAN) 0-5 /HPF (0-5)
[2019-09-11 09:53] LABS: HYALINE CASTS 0-1 (0-1); MUCUS,URINE FEW (RARE)
--- NOTE | 2019-09-11 10:08 | Consultation ---
DATE OF CONSULTATION: Pulmonary Consultation HISTORY OF PRESENT ILLNESS: Patient of Dr. Marquise Alonso and Dr. Gomez. Charming, but unfortunate 74-year-old woman with a history of cardiomyopathy, history of remote bypass surgery in 2007, history of diabetes and hypertension. On metformin, lisinopril, Coreg, Zocor, and Naprosyn. Also had tubal ligation. She has never smoked. She has been treated recently with Zithromax, apparently without improvement. She was found to have a low-grade fever of 100.1. Chest x-ray revealed suggestive of congestive heart failure. 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 PHYSICAL EXAMINATION: VITAL SIGNS: Temperature 100.1, pulse 72, respirations 20, and blood pressure 110/50. HEAD: Normocephalic, atraumatic. EYES: Extraocular movements intact. LUNGS: Bilateral bronchial breath sounds. HEART: Regular rhythm. ABDOMEN: Nontender. EXTREMITIES: Nonedematous. IMPRESSION: Community-acquired atypical pneumonia, apparently did not respond to Zithromax. Possible viral pneumonia. The patient did have her flu shot congestive heart failure, atypical pneumonia, and diabetes. Thank you for this kind referral. MD PAUL Kirby/TIANA /[id number] SHIVANI
--- NOTE | 2019-09-11 11:13 | History and Physical ---
CHIEF COMPLAINT: 1. Shortness of breath. 2. Severe fatigue and weakness. 3. Cough. HISTORY OF PRESENT ILLNESS: This is a 74-year-old female with past medical history of congestive heart failure, cardiomyopathy, coronary artery disease, hypertension, diabetes, was in usual state of health until since one week she has some shortness of breath, cough, congestion, and fatigue. The patient failed outpatient antibiotic as well as outpatient treatment, so she came to the emergency room. In the emergency room, they found that the patient has congestive heart failure and may be does have pneumonia. IV antibiotic and IV Lasix initiated. The patient started feeling little better. Pulmonary and ID consult were obtained. No leg pain, but has some mild leg swelling. No diarrhea. No constipation. No hematochezia or melena. No backache. No burning urination. PAST MEDICAL HISTORY: 1. Congestive heart failure. 2. Cardiomyopathy. 3. Coronary disease. 4. Hypertension. 5. Hyperlipidemia. 6. Diabetes mellitus, type 2. PAST SURGICAL HISTORY: 1. History of AICD and pacemaker. 2. History of coronary artery bypass graft. SOCIAL HISTORY: The patient denies smoking. Denies illicit drug use. Denies alcohol abuse. The patient is and lives with her daughter. FAMILY HISTORY: Noncontributory. MEDICATIONS: List which reviewed. ALLERGIES: ALLERGIC TO LEVAQUIN. REVIEW OF SYSTEMS: CONSTITUTIONAL: Denies fatigue or weakness. HEENT: No diplopia. No blurring of vision. CARDIOPULMONARY: No chest pain, but has some shortness of breath, cough, and wheezing. CARDIOVASCULAR SYSTEM: No chest pain, has some shortness of breath. ALIMENTARY SYSTEM: No abdomen pain. No nausea, vomiting. GENITOURINARY SYSTEM: No dysuria. No hematuria. MUSCULOSKELETAL: No joint pain. CENTRAL NERVOUS SYSTEM: No focal weakness. PHYSICAL EXAMINATION: GENERAL: This is a 74-year-old female, who is alert, oriented x3. Mild respiratory distress. VITAL SIGNS: Temperature 96.7, pulse 80, respiratory rate 22, blood pressure 127/74. HEENT: Head atraumatic and normocephalic. Pupils bilaterally equal and reactive to light. Extraocular muscles intact. NECK: Supple. No JVD. No carotid bruit. LUNGS: Air entry fair. Rhonchi and wheezing bilaterally. HEART: S1, S2. Regular rate and rhythm. No S3, S4, or murmur. ABDOMEN: Soft, nontender. No guarding. No rigidity. EXTREMITIES: No pedal edema. Peripheral pulse 1+. PRODUCTION REPAIRER: Grossly nonfocal. ASSESSMENT: 1. Exacerbation of congestive heart failure. 2. Exacerbation of chronic obstructive pulmonary disease. 3. Pneumonia and bronchitis. 4. Hypertension. 5. Diabetes mellitus, type 2. 6. Coronary artery disease. 7. Coronary artery bypass graft. PLAN: IV Rocephin and IV Zithromax, IV Lasix 40 b.i.d. Pulmonary and Cardiology consult. Continue home medicine. Blood sugar checkup before meals and at bedtime with sliding scale. BMP tomorrow. Case discussed with the patient. Condition and prognosis explained. MD SAMEER Ann/TIANA /[id number]
[2019-09-11 12:00] VITALS: BP 104/48
[2019-09-11] MEDS ORDERED: FAMOTIDINE 20 MG TAB PO SCH (16:30)
[2019-09-11] MEDS: ENOXAPARIN SOD INJ 40 MG/0.4 ML SYR SC SCH (16:35)
[2019-09-11 20:11] VITALS: BP 116/58
--- NOTE | 2019-09-11 20:16 | Consultation ---
DATE OF CONSULTATION: Cardiology Consultation HISTORY OF PRESENT ILLNESS: This is a 74-year-old woman, who has a history of congestive heart failure, status post implantable cardioverter-defibrillator, coronary artery disease status post bypass surgery, hypertension, hyperlipidemia, diabetes mellitus, and chronic obstructive pulmonary disease, who presented to the emergency department with shortness of breath, cough, and subjective fevers. She received Zithromax for possible pneumonia. However, her symptoms progressively worsened, which prompted her to seek medical attention here to our facility. She is currently feeling better. Denies any chest pain or palpitations currently. REVIEW OF SYSTEMS: A 12-point review of system was conducted, is negative otherwise stated above in the HPI. PAST MEDICAL HISTORY: As stated above in the HPI. PAST SURGICAL HISTORY: Bypass surgery and ICD implantation. FAMILY HISTORY: No premature CAD or sudden cardiac . SOCIAL HISTORY: No illicit drug, alcohol, or tobacco use. ALLERGIES: LEVOFLOXACIN. MEDICATIONS: See medication reconciliation form. PHYSICAL EXAMINATION: VITAL SIGNS: Temperature is 96.5, heart rate 65, respirations 22, blood pressure is 104/48, and oxygen saturation 97% on 3 L nasal cannula. GENERAL: Well-appearing, no apparent distress. Alert and oriented x3. HEAD: Normocephalic and atraumatic. EYES: The extraocular muscles are intact. Conjunctivae are clear. NECK: No JVD. No bruits. CARDIOVASCULAR: Regular rate and rhythm. LUNGS: Mild rales at the bases. ABDOMEN: Soft, nontender, and nondistended. EXTREMITIES: No clubbing, cyanosis, or edema. VASCULAR: 2+ pulses. SKIN: Warm, dry, and intact. NEUROLOGIC: No focal deficits noted. Cranial nerves grossly intact. PSYCHIATRIC: Normal mood and affect. LABORATORY DATA: Reviewed. Hemoglobin is normal. Creatinine is 0.8. Troponins negative x1. IMPRESSION: 1. Pneumonia. 2. Chronic obstructive pulmonary disease exacerbation. 3. Ggkpx-[id number] systolic congestive heart failure. 4. Hypertension. 5. Hyperlipidemia. 6. Coronary artery disease. 7. Implantable cardioverter-defibrillator. 8. History of bypass surgery. RECOMMENDATIONS: Continue current cardiovascular medications including Lasix for diuresis. She has been started on antibiotics for her pneumonia. No need for device interrogation. An echocardiogram has been ordered and review this once has been resulted. DO NGA Cutler /[id number]
[2019-09-11] MEDS ORDERED: AZITHROMYCIN 500MG/NS 250 ML 250 ML IV ONE (21:00)
[2019-09-11] MEDS ORDERED: SODIUM CHLORIDE 0.9% 250ML 250 ML ONE (21:27)
[2019-09-11] MEDS: SIMVASTATIN 40 MG TAB PO SCH (21:46)
[2019-09-12] VITALS (10 sets, daily range): BP systolic 87–126; BP diastolic 53–93
[2019-09-12] MEDS: CEFTRIAXONE SOD 1 GM/NS 50 ML 50 ML IV SCH ×2 (00:20→21:02)
[2019-09-12 05:44] LABS: BASOPHILS % 0.1 % (0.0-1.0); HEMATOCRIT 33.7 % (34.2-44.1); HEMOGLOBIN 10.8 g/dL (12.0-16.0); LYMPHOCYTES # (AUTO) 0.9 (1.0-3.2); LYMPHOCYTES % 5.6 % (18.0-39.1); MEAN CORPUSCULAR HEMOGLOBIN 26.9 pg (28-32); MEAN CORPUSCULAR VOLUME 83.8 fL (81-99); MONOCYTES # (AUTO) 0.8 (0.2-0.8); MONOCYTES % 5.4 % (4.4-11.3); NEUTROPHILS # (AUTO) 13.5 (2.1-6.9); NEUTROPHILS % 88.4 % (38.7-80.0); PLATELET COUNT 206 x10e3/uL (140-360); RED BLOOD COUNT 4.02 x10e6/uL (3.6-5.1)
[2019-09-12 06:07] LABS: ANION GAP 13.2 mmol/L (8-16); BLOOD UREA NITROGEN 24 mg/dL (7-26); BUN/CREATININE RATIO 28 (6-25); CALCIUM 9.1 mg/dL (8.4-10.2); CARBON DIOXIDE 29 mmol/L (22-29); CHLORIDE 97 mmol/L (98-107); CREATININE, SERUM 0.86 mg/dL (0.57-1.11); EST GLOMERULAR FILTRATION RATE > 60 ML/MIN (60-); GLUCOSE 166 mg/dL (74-118); POTASSIUM 4.2 mmol/L (3.5-5.1); SODIUM 135 mmol/L (136-145)
--- NOTE | 2019-09-12 06:40 | Diagnostic Imaging Report ---
EXAMINATION: CHEST SINGLE (PORTABLE) COMPARISON: Chest x-ray 09/10/2019 INDICATION: Shortness of breath ^sob ^[id number] ^[id number] DISCUSSION: Frontal view of the chest obtained at 0553 hours. HEART AND MEDIASTINUM: Stable cardiomegaly and cardiac bypass changes. Pulmonary arteries are markedly enlarged. LINES: Pacemaker wires terminate in the right atrium and right ventricle. LUNGS: Diffuse hyperinflation consistent with small airways disease. Mild bibasilar atelectasis. No interstitial edema. PLEURA: No large effusions. No pneumothorax. BONES AND SOFT TISSUES: No focal osseous lesion. The soft tissues are normal. IMPRESSION: 1. Diffuse hyperinflation consistent with small airways disease. 2. Stable cardiomegaly and enlarged pulmonary artery suggestive of pulmonary artery hypertension. 3. Mild bibasilar atelectasis. Signed by: Dr. Manuel Sanchez MD on 09/12/2019 6:37 AM
--- NOTE | 2019-09-12 06:59 | NUR ---
RECEIVED PATIENT RESTING IN BED NO S/S OF DISTRESS. BED LOW, WHEELS LOCKED, SIDE RAILS X2. CALL LIGHT IN REACH WILL CONTINUE TO MONITOR PATIENT.
[2019-09-12] MEDS: CARVEDILOL 12.5 MG TAB PO SCH ×2 (07:33→17:07)
[2019-09-12] MEDS: METHYLPREDNISOLONE SOD SUCC 40 MG/ML VIAL 1ML IV SCH ×2 (08:25→17:07)
[2019-09-12] MEDS: FUROSEMIDE INJ 10 MG/ML 4 ML VIAL IV SCH ×2 (08:25→21:01)
[2019-09-12] MEDS: FAMOTIDINE 20 MG TAB PO SCH ×2 (08:25→17:07)
[2019-09-12] MEDS: AZITHROMYCIN 250 MG TAB PO SCH (08:26)
[2019-09-12] MEDS: SPIRONOLACTONE 25 MG TAB PO SCH (08:26)
[2019-09-12] MEDS: LISINOPRIL 2.5 MG TAB PO SCH (08:26)
[2019-09-12] MEDS: ASPIRIN 81 MG CHEW TAB PO SCH (08:26)
[2019-09-12] MEDS: INSULIN LISPRO 100 UNIT/1 ML 3ML VIAL SQ SCH ×4 (08:37→21:02)
[2019-09-12] MEDS ORDERED: GUAIFENESIN 600MG/DEXTROMETHORPHAN 30MG TABSR PO PRN (08:45)
[2019-09-12] MEDS: ALBUTEROL/IPRATROPIUM 3 ML NEB NEB PRN (09:00)
--- NOTE | 2019-09-12 15:15 | NUR ---
Visit made by the Spiritual Care Department Pastoral Visitor, Shruti Hinds. PV provided pastoral presence, prayer, hospitality, and supportive listening. Pastoral Visitor informed pt/family of the scope of Workforce Management Analyst Services and availability. FAVIO LUCAS Pin Cleaner Spiritual Care Department O: [phone] Pager: [phone] ([phone] number calling from)
[2019-09-12] MEDS: ENOXAPARIN SOD INJ 40 MG/0.4 ML SYR SC SCH (17:07)
--- NOTE | 2019-09-12 19:30 | NUR ---
RECEIVED PT IN BED A/A/OX3. PT DENIES ANY PAIN, RESPIRATION EVEN AND UNLABORED. PT HAS ON O2 2L NC WITHOUT DISTRESS. + BOWEL SOUNDS NOTED. PT IS CONTINENT FOR BOWEK AND BLADDER. PT HAS A RFA 20G SL PATENT AND INTACT. PT HAS A STEADY GAIT NO EDEMA NOTED, ALL PULSES ARE PALPABLE. WILL CONTINUE TO MONITOR.
[2019-09-12] MEDS: SIMVASTATIN 40 MG TAB PO SCH (21:01)
[2019-09-13] VITALS (7 sets, daily range): BP systolic 97–123; BP diastolic 48–69
[2019-09-13 05:39] LABS: ANION GAP 12.3 mmol/L (8-16); BLOOD UREA NITROGEN 31 mg/dL (7-26); BUN/CREATININE RATIO 38 (6-25); CARBON DIOXIDE 30 mmol/L (22-29); CHLORIDE 96 mmol/L (98-107); CREATININE, SERUM 0.81 mg/dL (0.57-1.11); EST GLOMERULAR FILTRATION RATE > 60 ML/MIN (60-); GLUCOSE 182 mg/dL (74-118); POTASSIUM 4.3 mmol/L (3.5-5.1); SODIUM 134 mmol/L (136-145)
[2019-09-13] MEDS: ALBUTEROL/IPRATROPIUM 3 ML NEB NEB PRN ×2 (07:10→19:30)
[2019-09-13] MEDS: FAMOTIDINE 20 MG TAB PO SCH ×2 (09:06→17:18)
[2019-09-13] MEDS: FUROSEMIDE INJ 10 MG/ML 4 ML VIAL IV SCH ×2 (09:07→21:38)
[2019-09-13] MEDS: SPIRONOLACTONE 25 MG TAB PO SCH (09:08)
[2019-09-13] MEDS: AZITHROMYCIN 250 MG TAB PO SCH (09:08)
[2019-09-13] MEDS: CARVEDILOL 12.5 MG TAB PO SCH ×2 (09:08→17:18)
[2019-09-13] MEDS: ASPIRIN 81 MG CHEW TAB PO SCH (09:08)
[2019-09-13] MEDS: LISINOPRIL 2.5 MG TAB PO SCH (09:08)
[2019-09-13] MEDS: INSULIN LISPRO 100 UNIT/1 ML 3ML VIAL SQ SCH ×4 (09:12→21:50)
--- NOTE | 2019-09-13 15:02 | NUR ---
IMM explained to patient, patient signed and original placed in chart. copy given to patient.
[2019-09-13] MEDS: ENOXAPARIN SOD INJ 40 MG/0.4 ML SYR SC SCH (17:18)
--- NOTE | 2019-09-13 18:07 | Progress Note ---
DATE: Cardiology Progress Note SUBJECTIVE: The patient is feeling better, respirations have improved. No chest pain. OBJECTIVE: VITAL SIGNS: Temperature is 97.2, heart rate 65, respirations are 20, blood pressure is 102/56, ox saturation is 96% on 2 L nasal cannula. GENERAL: Well appearing, no apparent distress. CARDIOVASCULAR: Regular rate and rhythm. LUNGS: Mildly diminished breath sounds at bases. ABDOMEN: Soft, nontender, nondistended. EXTREMITIES: No edema. LABORATORY DATA: Reviewed. Creatinine is 0.81. IMPRESSION: 1. Pneumonia. 2. Chronic obstructive pulmonary disease exacerbation. 3. Acute on chronic systolic congestive heart failure. 4. Hypertension. 5. Hyperlipidemia. 6. Implantable cardioverter-defibrillator. 7. Coronary artery disease. RECOMMENDATIONS: Continue current cardiovascular medications including carvedilol, lisinopril, aspirin, Aldactone, and Lasix. She will remain on aspirin and statin. Continue antibiotics per primary team. We will continue to follow closely along with you. Antonio Moore DO BM/MODL /[id number]
--- NOTE | 2019-09-13 19:00 | NUR ---
RECEIVED PATIENT IN BEDSIDE REPORT. PATIENT RESTING IN BED AT THIS TIME. NO PAIN REPORTED. NO S&S OF DISTRESS NOTED. O2 @ 2L VIA NC. BED LOCKED IN LOWEST POSITION, SIDE RAILS UPX2, CALL LIGHT IN REACH.
[2019-09-13] MEDS: SIMVASTATIN 40 MG TAB PO SCH (21:38)
[2019-09-13] MEDS: CEFTRIAXONE SOD 1 GM/NS 50 ML 50 ML IV SCH (21:50)
[2019-09-14] VITALS (8 sets, daily range): BP systolic 96–121; BP diastolic 53–90
[2019-09-14] MEDS: ALBUTEROL/IPRATROPIUM 3 ML NEB NEB PRN (06:30)
[2019-09-14 06:44] LABS: BASOPHILS % 0.2 % (0.0-1.0); EOSINOPHILS % 0.4 % (0.0-6.0); HEMATOCRIT 35.4 % (34.2-44.1); HEMOGLOBIN 11.2 g/dL (12.0-16.0); LYMPHOCYTES # (AUTO) 1.7 (1.0-3.2); LYMPHOCYTES % 17.1 % (18.0-39.1); MEAN CORPUSCULAR HEMOGLOBIN 26.4 pg (28-32); MEAN CORPUSCULAR HGB CONC 31.6 g/dL (31-35); MEAN CORPUSCULAR VOLUME 83.3 fL (81-99); MONOCYTES # (AUTO) 1.5 (0.2-0.8); MONOCYTES % 14.8 % (4.4-11.3); NEUTROPHILS # (AUTO) 6.6 (2.1-6.9); NEUTROPHILS % 66.9 % (38.7-80.0); PLATELET COUNT 202 x10e3/uL (140-360); RED BLOOD COUNT 4.25 x10e6/uL (3.6-5.1); RED CELL DISTRIBUTION WIDTH 14.9 % (11.7-14.4)
[2019-09-14 07:03] LABS: ANION GAP 13.4 mmol/L (8-16); CALCIUM 8.7 mg/dL (8.4-10.2); CREATININE, SERUM 1.02 mg/dL (0.57-1.11); POTASSIUM 4.4 mmol/L (3.5-5.1)
[2019-09-14] MEDS: FUROSEMIDE INJ 10 MG/ML 4 ML VIAL IV SCH ×2 (09:00→21:29)
[2019-09-14] MEDS: LISINOPRIL 2.5 MG TAB PO SCH (09:00)
[2019-09-14] MEDS: CARVEDILOL 12.5 MG TAB PO SCH ×2 (09:00→17:02)
[2019-09-14] MEDS: ASPIRIN 81 MG CHEW TAB PO SCH (10:07)
[2019-09-14] MEDS: AZITHROMYCIN 250 MG TAB PO SCH (10:09)
[2019-09-14] MEDS: FAMOTIDINE 20 MG TAB PO SCH ×2 (10:09→17:02)
[2019-09-14] MEDS: SPIRONOLACTONE 25 MG TAB PO SCH (10:09)
[2019-09-14] MEDS: INSULIN LISPRO 100 UNIT/1 ML 3ML VIAL SQ SCH ×4 (10:15→21:30)
[2019-09-14] MEDS: ENOXAPARIN SOD INJ 40 MG/0.4 ML SYR SC SCH (16:58)
--- NOTE | 2019-09-14 19:00 | NUR ---
RECEIVED PATIENT IN BEDSIDE REPORT. PATIENT RESTING ON SIDE OF BED, FAMILY MEMBERS AT BEDSIDE. NO PAIN REPORTED. NO S&S OF DISTRESS NOTED. O2 @ 2L, NO SOB REPORTED. BED LOCKED IN LOWEST POSITION, SIDE RAILS UPX2, CALL LIGHT IN REACH.
[2019-09-14] MEDS: SIMVASTATIN 40 MG TAB PO SCH (21:29)
--- NOTE | 2019-09-14 21:45 | NUR ---
R FA 20G IV NOTED TO BE INFILTRATED, REMOVED, CATHETER TIP INTACT, PRESSURE DRESSING APPLIED. NEW IV PLACED. L UPPER ARM 22G, ASEPTIC PROCEDURE FOLLOWED.
[2019-09-14] MEDS: CEFTRIAXONE SOD 1 GM/NS 50 ML 50 ML IV SCH (22:00)
[2019-09-15] VITALS: BP 101/74
[2019-09-15 04:00] VITALS: BP 104/63
[2019-09-15 05:48] LABS: ALANINE AMINOTRANSFERASE 12 IU/L (0-55); ALBUMIN 3.2 g/dL (3.5-5.0); ALBUMIN/GLOBULIN RATIO 1.1 (0.8-2.0); ALKALINE PHOSPHATASE 60 IU/L (40-150); ANION GAP 12.2 mmol/L (8-16); BLOOD UREA NITROGEN 21 mg/dL (7-26); BUN/CREATININE RATIO 25 (6-25); CALCIUM 9.2 mg/dL (8.4-10.2); CARBON DIOXIDE 35 mmol/L (22-29); CHLORIDE 93 mmol/L (98-107); CREATININE, SERUM 0.84 mg/dL (0.57-1.11); EST GLOMERULAR FILTRATION RATE > 60 ML/MIN (60-); GLUCOSE 121 mg/dL (74-118); POTASSIUM 4.2 mmol/L (3.5-5.1); SODIUM 136 mmol/L (136-145)
--- NOTE | 2019-09-15 07:12 | NUR ---
Received patient sitting at bedside. Respiration even and unlabored. Denies SOB, removed O2 NC at this time to try to wean patient on oxygen as ordered. Will continue to monitor. Call light in reach.
[2019-09-15] MEDS: INSULIN LISPRO 100 UNIT/1 ML 3ML VIAL SQ SCH (07:30)
[2019-09-15 07:52] VITALS: BP 134/75
[2019-09-15] MEDS: SPIRONOLACTONE 25 MG TAB PO SCH (08:11)
[2019-09-15] MEDS: FUROSEMIDE INJ 10 MG/ML 4 ML VIAL IV SCH (08:11)
[2019-09-15] MEDS: ASPIRIN 81 MG CHEW TAB PO SCH (08:11)
[2019-09-15] MEDS: FAMOTIDINE 20 MG TAB PO SCH (08:11)
[2019-09-15] MEDS: CARVEDILOL 12.5 MG TAB PO SCH ×2 (08:11→08:22)
[2019-09-15] MEDS: AZITHROMYCIN 250 MG TAB PO SCH (08:12)
[2019-09-15] MEDS: LISINOPRIL 2.5 MG TAB PO SCH (08:12)
[2019-09-15] MEDS ORDERED: SALINE 0.65% NAS SOLN 1 SPRAY BTL PRN (09:00)
[2019-09-15 10:01] VITALS: BP 134/75
--- NOTE | 2019-09-15 10:15 | NUR ---
Visit made by the Spiritual Care Department Pastoral Visitor, Svitlana Rojas. PV provided pastoral presence, hospitality, communion, and supportive listening. Pastoral Visitor informed pt/family of the scope of Mail Order Clerk Services and availability. FAVIO LUCAS Accounting Clerks Supervisor Spiritual Care Department O: [phone] Pager: [phone] ([phone] number calling from)
[2019-09-15] MEDS ORDERED: CEFUROXIME250 MG PO ×2 (10:45→10:46)
--- NOTE | 2019-09-15 11:10 | NUR ---
Dr. Alonso cleared the patient to go home and Dr. Jean cleared the patient as well. Called Dr. Toro's answering service to let her know about patient d/c status. Awaiting for call back.
[2019-09-15 11:47] VITALS: BP 100/56
--- NOTE | 2019-09-15 12:50 | NUR ---
PIV to right AC discontinued. Catheter tip intact, no bleeding noted. Patient is to discharge to home today as ordered.
--- NOTE | 2019-09-15 13:00 | NUR ---
Patient's picking tech transportation arrived and patient insisted to go home.
--- NOTE | 2019-09-15 13:10 | NUR ---
Patient transported via wheelchair to private vehicle. Respiration even and unlabored without SOB.
[2019-09-17] MEDS ORDERED: ALBUTEROL/IPRATROPIUM 3 ML NEB NEB SCH (07:00)
== END 2019-09-15 13:10 | disposition home or self-care (01) | DRG 291 ==
LOC: ER 16:41 → ERHOLD 23:42 → MED/SURG 09-11 00:01 → OBSVTOIN 09-11 12:17
PROVIDERS: ADMIT Internal Medicine; ATTEND Internal Medicine
DX: I11.0 Hypertensive heart disease with heart failure (principal); J12.9 Viral pneumonia, unspecified; I25.810 Atherosclerosis of coronary artery bypass graft(s) without angina pectoris; J44.0 Chronic obstructive pulmonary disease with (acute) lower respiratory infection; J44.1 Chronic obstructive pulmonary disease with (acute) exacerbation; I50.23 Acute on chronic systolic (congestive) heart failure; I42.9 Cardiomyopathy, unspecified; E11.9 Type 2 diabetes mellitus without complications; E78.5 Hyperlipidemia, unspecified; J20.9 Acute bronchitis, unspecified; Z87.01 Personal history of pneumonia (recurrent)
CPT/HCPCS: 36415; 36600; 71045; 71046; 71260; 80048; 80053; 80061; 81001; 82805; 82948; 83036; 83735; 83880; 84443; 84484; 85025; 85379; 85610; 87040; 87400; 93005; 94640; 94660; 99284; G0378; J0456; J0696; J1650; J1940; J2920; J2930; J7050; Q9967

== ENCOUNTER 2019-12-09 11:10 | Emergency (ER) | payer MEDICARE ==
[~2019-12-09] VITALS: Ht 147.3 cm; Wt 84.8 kg
[~2019-12-09 11:10] MED LIST changes: +CEFUROXIME250 MG PO
[2019-12-09] MEDS ORDERED: KETOROLAC TROMETHAMINE 30 MG/ML VIAL IV NR (11:44)
[2019-12-09] MEDS ORDERED: PANTOPRAZOLE 40 MG 10ML VIAL IV NR (11:44)
[2019-12-09] MEDS ORDERED: SODIUM CHLORIDE 0.9% 1000ML 1,000 ML IV STA (11:44)
[2019-12-09] MEDS ORDERED: ONDANSETRON HCL INJ 2MG/ML 2ML 2 MG/ML VIAL IV NR (11:44)
[2019-12-09 12:28] LABS: BASOPHILS # (AUTO) 0.1 (0.0-0.1); BASOPHILS % 0.6 % (0.0-1.0); EOSINOPHILS % 0.5 % (0.0-6.0); HEMATOCRIT 34.2 % (34.2-44.1); HEMOGLOBIN 10.4 g/dL (12.0-16.0); LYMPHOCYTES # (AUTO) 1.1 (1.0-3.2); LYMPHOCYTES % 14.1 % (18.0-39.1); MEAN CORPUSCULAR HEMOGLOBIN 24.2 pg (28-32); MEAN CORPUSCULAR HGB CONC 30.4 g/dL (31-35); MEAN CORPUSCULAR VOLUME 79.5 fL (81-99); MONOCYTES # (AUTO) 0.8 (0.2-0.8); MONOCYTES % 9.6 % (4.4-11.3); NEUTROPHILS % 74.8 % (38.7-80.0); PLATELET COUNT 202 x10e3/uL (140-360); RED CELL DISTRIBUTION WIDTH 15.4 % (11.7-14.4)
[2019-12-09 12:56] LABS: INR 1.24; PROTHROMBIN TIME 16.4 seconds (11.9-14.5)
[2019-12-09 12:57] LABS: PARTIAL THROMBOPLASTIN TIME 30.4 seconds (23.8-35.5)
[2019-12-09 13:08] LABS: ALANINE AMINOTRANSFERASE 14 IU/L (0-55); ALBUMIN 3.7 g/dL (3.5-5.0); ALBUMIN/GLOBULIN RATIO 1.2 (0.8-2.0); ALKALINE PHOSPHATASE 60 IU/L (40-150); AMYLASE 25 U/L (25-125); ANION GAP 14.7 mmol/L (8-16); BLOOD UREA NITROGEN 10 mg/dL (7-26); BUN/CREATININE RATIO 12 (6-25); CALCIUM 9.2 mg/dL (8.4-10.2); CARBON DIOXIDE 24 mmol/L (22-29); CHLORIDE 99 mmol/L (98-107); CREATINE KINASE 40 IU/L (29-168); CREATININE, SERUM 0.84 mg/dL (0.57-1.11); EST GLOMERULAR FILTRATION RATE > 60 ML/MIN (60-); GLUCOSE 137 mg/dL (74-118); LIPASE 11 U/L (8-78); POTASSIUM 4.7 mmol/L (3.5-5.1); SODIUM 133 mmol/L (136-145)
[2019-12-09 13:15] LABS: CLARITY,URINE SL CLOUDY (CLEAR); COLOR,URINE YELLOW (YELLOW); LEUKOCYTE ESTERASE ,URINE SMALL (NEGATIVE); NITRITE,URINE NEGATIVE (NEGATIVE); PROTEIN,URINE DIPSTICK 3+ (NEGATIVE)
[2019-12-09 13:16] LABS: BILIRUBIN,URINE NEGATIVE (NEGATIVE); KETONES,URINE NEGATIVE (NEGATIVE); URINE UROBILINOGEN 1 mg/dL (0.2 - 1)
[2019-12-09 13:17] LABS: BACTERIA,URINE MODERATE /HPF; EPITHELIAL CELLS,URINE MODERATE /LPF; MUCUS,URINE FEW (RARE); RBC,URINE 0-5 /HPF (0-5)
[2019-12-09] MEDS ORDERED: IOPAMIDOL 370 MG/ML 200 ML INFUS..BTL INJ ONE (13:24)
[2019-12-09] MEDS ORDERED: SODIUM CHLORIDE 0.9% 50ML 50 ML ONE (13:24)
--- NOTE | 2019-12-09 13:47 | Diagnostic Imaging Report ---
EXAMINATION: Right upper quadrant ultrasound CLINICAL INDICATION: Abdominal pain COMPARISON: None DISCUSSION: Transverse and longitudinal images of the right upper quadrant were obtained. The liver is normal in size measuring 15.5centimeters in length in the right midclavicular line and shows normal echogenicity. No focal masses are seen in the liver. There is no intrahepatic biliary dilatation. The common bile duct is normal in caliber and measures 0.3 cm. The main portal vein is normal in caliber and measures 0.9 cm with normal hepatopetal flow. The gallbladder is normal in appearance without stones, wall thickening or pericholecystic fluid. The sonographic Hawkins's sign is negative. The visualized portions of the pancreatic body are unremarkable. The right kidney measures 9.3 centimeters in length. There is normal renal cortical echogenicity and no hydronephrosis, mass or shadowing calculi. The visualized portions of the great vessels are normal. No free fluid is seen. IMPRESSION: Unremarkable right upper quadrant ultrasound. Signed by: Dr. Denny Li M.D. on 12/09/2019 1:44 PM
--- NOTE | 2019-12-09 14:30 | Diagnostic Imaging Report ---
EXAMINATION: CT of the abdomen and pelvis with contrast. TECHNIQUE: Helical CT images of the abdomen and pelvis were performed from the lung bases to the lesser trochanters after the intravenous administration of 100 cc of Isovue 300 and the oral administration of none. Coronal and sagittal reformatted images were obtained.Dose modulation, iterative reconstruction, and/or weight based adjustment of the mA/kV was utilized to reduce the radiation dose to as low as reasonably achievable. COMPARISON: None. CLINICAL HISTORY:Right upper quadrant pain DISCUSSION: ABDOMEN/PELVIS: LOWER THORAX:Unremarkable. HEPATOBILIARY: No focal hepatic lesions. No intra-or extrahepatic biliary ductal dilation. Cholelithiasis. SPLEEN: No splenomegaly. PANCREAS: No focal masses or ductal dilatation. ADRENALS: 2.6 cm right adrenal nodule measuring 22 Hounsfield unit. On prior study, H adenoma. KIDNEYS/URETERS: Simple exophytic left renal cyst. No solid lesion. Calcified renal artery aneurysm 1 cm. PELVIC ORGANS/BLADDER: The bladder is normal. PERITONEUM/RETROPERITONEUM: No free air or fluid. LYMPH NODES: No intra-abdominal, retroperitoneal, pelvic or inguinal lymphadenopathy. VESSELS: The celiac trunk,superior and inferior mesenteric and bilateral renal arteries are patent The portal, superior mesenteric and splenic veins are patent. GI TRACT: Colonic diverticulosis without inflammatory change. The appendix is normal. BONES AND SOFT TISSUE: No bony destructive lesions. No soft tissue abnormalities. IMPRESSION: Cholelithiasis without inflammatory change. Diverticulosis without inflammatory change. Signed by: Dr. Denny Li M.D. on 12/09/2019 2:27 PM
== END 2019-12-09 15:08 | disposition home or self-care (01) ==
LOC: ER 11:10
DX: R10.11 Right upper quadrant pain (principal); K80.20 Calculus of gallbladder without cholecystitis without obstruction; E11.9 Type 2 diabetes mellitus without complications; I25.10 Atherosclerotic heart disease of native coronary artery without angina pectoris; J44.9 Chronic obstructive pulmonary disease, unspecified; I11.0 Hypertensive heart disease with heart failure; I50.9 Heart failure, unspecified; I25.2 Old myocardial infarction; Z95.1 Presence of aortocoronary bypass graft; Z95.810 Presence of automatic (implantable) cardiac defibrillator; Z79.84 Long term (current) use of oral hypoglycemic drugs; Z88.0 Allergy status to penicillin
CPT/HCPCS: 36415; 74177; 76705; 80053; 81001; 82150; 82550; 82553; 83690; 84484; 85025; 85610; 85730; 87086; 87186; 93005; 99284; C9113; J1885; J2405; J7030; Q9967

== ENCOUNTER 2019-12-10 13:56 | Emergency (ER) | payer MEDICARE ==
[~2019-12-10] VITALS: Ht 147.3 cm; Wt 84.8 kg
== END 2019-12-10 16:05 | disposition left against medical advice (07) ==
LOC: ER 13:56
DX: R11.10 Vomiting, unspecified (principal)

== ENCOUNTER 2020-01-09 14:50 | Inpatient (IN) | payer MEDICARE ==
[~2020-01-09] VITALS: Ht 149.9 cm; Wt 87.1 kg
[2020-01-09] MEDS ORDERED: ALBUTEROL/IPRATROPIUM 3 ML NEB NEB ONE (16:00)
[2020-01-09 16:50] LABS: BASOPHILS # (AUTO) 0.1 (0.0-0.1); EOSINOPHILS # (AUTO) 0.1 (0.0-0.4); EOSINOPHILS % 0.7 % (0.0-6.0); HEMATOCRIT 36.8 % (34.2-44.1); LYMPHOCYTES # (AUTO) 1.1 (1.0-3.2); LYMPHOCYTES % 16.5 % (18.0-39.1); MEAN CORPUSCULAR HEMOGLOBIN 24.9 pg (28-32); MEAN CORPUSCULAR HGB CONC 29.9 g/dL (31-35); MEAN CORPUSCULAR VOLUME 83.3 fL (81-99); MONOCYTES # (AUTO) 0.7 (0.2-0.8); MONOCYTES % 10.8 % (4.4-11.3); NEUTROPHILS # (AUTO) 4.8 (2.1-6.9); NEUTROPHILS % 70.6 % (38.7-80.0); PLATELET COUNT 189 x10e3/uL (140-360); RED BLOOD COUNT 4.42 x10e6/uL (3.6-5.1); RED CELL DISTRIBUTION WIDTH 21.4 % (11.7-14.4)
[2020-01-09 17:05] LABS: INR 1.21; PROTHROMBIN TIME 16.1 seconds (11.9-14.5)
[2020-01-09 17:06] LABS: PARTIAL THROMBOPLASTIN TIME 28.2 seconds (23.8-35.5)
--- NOTE | 2020-01-09 17:18 | Diagnostic Imaging Report ---
EXAMINATION: CHEST SINGLE (NOT PORTABLE) COMPARISON: Chest x-ray 09/12/2019, CT chest 09/10/2019 INDICATION: Heart problems ^ERMD ORDER ^[id number] ^1610 ^Y DISCUSSION: Frontal view of the chest obtained at 1622 hours. HEART AND MEDIASTINUM: Stable cardiomegaly and cardiac bypass changes. Pulmonary arteries are enlarged suggestive of pulmonary artery hypertension LINES: Pacemaker/defibrillator wires terminate in the right atrium and right ventricle LUNGS: The lungs are well-inflated suggestive of COPD. No pneumonia or pulmonary edema. PLEURA: No pleural effusion or pneumothorax. BONES AND SOFT TISSUES: Median sternotomy wires are intact. Stable degenerative changes of the spine and shoulders. The soft tissues are normal. IMPRESSION: 1. Stable cardiomegaly and postoperative changes of the mediastinum. 2. Enlarged pulmonary arteries suggestive of pulmonary artery hypertension. 3. Pulmonary hyperinflation suggestive of COPD. No acute cardiopulmonary process. Signed by: Dr. Manuel Sanchez MD on 01/09/2020 5:15 PM
[2020-01-09 17:20] LABS: ALANINE AMINOTRANSFERASE 9 IU/L (0-55); ALBUMIN 3.7 g/dL (3.5-5.0); ALBUMIN/GLOBULIN RATIO 1.3 (0.8-2.0); ALKALINE PHOSPHATASE 53 IU/L (40-150); ANION GAP 12.2 mmol/L (8-16); BLOOD UREA NITROGEN 13 mg/dL (7-26); BUN/CREATININE RATIO 12 (6-25); CALCIUM 9.3 mg/dL (8.4-10.2); CARBON DIOXIDE 27 mmol/L (22-29); CHLORIDE 99 mmol/L (98-107); CREATINE KINASE 47 IU/L (29-168); CREATININE, SERUM 1.09 mg/dL (0.57-1.11); EST GLOMERULAR FILTRATION RATE 49 ML/MIN (60-); GLUCOSE 156 mg/dL (74-118); LIPASE 17 U/L (8-78); POTASSIUM 4.2 mmol/L (3.5-5.1); SODIUM 134 mmol/L (136-145)
[2020-01-09] MEDS ORDERED: ENOXAPARIN INJ 80 MG/0.8 ML SYR SC ONE ×3 (17:45→23:48)
[2020-01-09] MEDS ORDERED: SODIUM CHLORIDE 0.9% 500ML 500 ML IV ONE (19:15)
[2020-01-09] MEDS ORDERED: ALBUTEROL/IPRATROPIUM 3 ML NEB NEB PRN (19:30)
[2020-01-09] MEDS ORDERED: ENOXAPARIN SODIUM INJ 100 MG/ML SYR SC ONE (19:30)
[2020-01-09] MEDS ORDERED: SODIUM CHLORIDE FLUSH 10 ML SYR INJ PRN (19:30)
[2020-01-09] MEDS ORDERED: FUROSEMIDE INJ 10 MG/ML 4 ML VIAL IV ONE (19:30)
[2020-01-09] MEDS ORDERED: LEVOFLOXACIN 500MG/D5W 100ML 100 ML IV SCH (20:15)
[2020-01-09] MEDS ORDERED: SODIUM CHLORIDE 0.9% 50ML 50 ML ONE (20:26)
[2020-01-09] MEDS ORDERED: IOPAMIDOL 370 MG/ML 200 ML INFUS..BTL INJ ONE (20:27)
[2020-01-09] MEDS ORDERED: DEXTROSE 50% SYRINGE 50 ML IV PRN (20:30)
--- NOTE | 2020-01-09 20:39 | Diagnostic Imaging Report ---
CT chest pulmonary embolism protocol CPT code: 40495 INDICATION: Shortness of breath, lower extremity swelling ^PE PROTOCOL ^[id number] ^1999 TECHNIQUE: Thin collimation axial images obtained through the level of the pulmonary arteries with additional imaging through the chest following the uneventful administration of 100 cc of low osmolar, nonionic intravenous contrast. Images reconstructed into coronal and sagittal MIPs for complete evaluation of the tortuous and overlapping pulmonary vascular structures and to reduce patient radiation dose. RADIATION DOSE: Total DLP: 602.78 mGy*cm Estimated effective dose: (DLP x 0.015 x size factor) mSv CTDIvol has been reviewed. It is below the limits set by the Radiation Protocol Committee (RPC). Dose reduction techniques used: Automated exposure control, adjustment of the mAs and/or kVp according to patient size, standardized low-dose protocol, and/or iterative reconstruction technique. COMPARISON: CT abdomen/pelvis 12/09/2019. FINDINGS: Pulmonary artery: No filling defects are appreciated within the main, left, right, lobar or proximal segmental pulmonary arteries to suggest embolism. Main pulmonary artery measures 3.6 cm in diameter. Aorta: Unopacified. Thoracic aorta is not aneurysmal. Lymph nodes: No enlarged axillary, supraclavicular, mediastinal, or hilar lymph nodes. Thyroid: Visualized portions are normal. Mediastinum: The heart is enlarged. Pacemaker wires terminate in the right atrium and right ventricle. Cardiac bypass changes are redemonstrated. No pericardial effusion. The esophagus is collapsed. Lungs: Right Lung: Diffusely hyperinflated. There are a few patchy groundglass airspace opacities throughout. Chronic atelectasis/scar in the right middle lobe and anterior basal the lower lobe. No infiltrates. No interlobular thickening. Left Lung: Diffusely hyperinflated. A band of chronic atelectasis/scar is in the upper lobe. Subsegmental atelectasis or scar in the lower lobe. No infiltrates. No interlobular thickening. Airways: Clear. Pleura: Small posterior layering pleural effusions, right larger than left. No pneumothorax. Abdomen: Refluxed contrast into the intrahepatic veins. Small amount of perisplenic ascites. There is fatty atrophy of the pancreas. A cyst in the upper pole of the left kidney measures 2 cm. Bones: Median sternotomy is well opposed. Diffuse degenerative changes of the spine. No focal osseous lesions. IMPRESSION: 1. No evidence of pulmonary embolus. Enlarged pulmonary arteries suggestive of pulmonary artery hypertension. 2. Cardiomegaly, right heart failure and cardiac bypass changes. 3. Pulmonary hyperinflation suggestive of COPD. No pulmonary infiltrates. Signed by: Dr. Manuel Sanchez MD on 01/09/2020 8:37 PM
[2020-01-09] MEDS ORDERED: FUROSEMIDE INJ 10 MG/ML 2 ML VIAL ONE (23:50)
[2020-01-10] VITALS (10 sets, daily range): BP systolic 91–114; BP diastolic 51–97
[2020-01-10] MEDS: METHYLPREDNISOLONE SOD SUCC 40 MG/ML VIAL 1ML IV SCH ×3 (00:15→20:40)
[2020-01-10] MEDS: METFORMIN HCL 500 MG TAB PO SCH ×2 (00:15→20:40)
[2020-01-10] MEDS: SIMVASTATIN 40 MG TAB PO SCH ×2 (00:15→20:40)
[2020-01-10] MEDS: INSULIN LISPRO 100 UNIT/1 ML 3ML VIAL SQ SCH ×5 (00:30→20:40)
--- NOTE | 2020-01-10 01:10 | NUR ---
RECEIVED REPORT FROM LEROY, ER NURSE. CALL LIGHT WITHIN REACH. PATIENT ARRIVED VIA STRETCHER WITH HER 2 DAUGHTERS ACCOMPANYING HER. PATIENT IS TIRED WHEN SHE ARRIVED AND READY TO GO TO SLEEP. PATIENT IN NO PAIN OR DISTRESS.
[2020-01-10] MEDS ORDERED: ATORVASTATIN CA20 MG PO (01:35)
[2020-01-10] MEDS ORDERED: FAMOTIDINE20 MG PO (01:35)
[2020-01-10] MEDS ORDERED: ALBUTEROL0.63 MG/3 INH (01:35)
[2020-01-10] MEDS ORDERED: NAPROXEN250 MG PO (01:35)
[2020-01-10] MEDS ORDERED: FERROUS SULFAT325 MG PO (01:35)
[2020-01-10] MEDS ORDERED: ASPIRIN EC81 MG PO (01:35)
[2020-01-10 02:32] LABS: BILIRUBIN,URINE NEGATIVE (NEGATIVE); CLARITY,URINE CLEAR (CLEAR); COLOR,URINE YELLOW (YELLOW); KETONES,URINE NEGATIVE (NEGATIVE); LEUKOCYTE ESTERASE ,URINE NEGATIVE (NEGATIVE); NITRITE,URINE NEGATIVE (NEGATIVE); PROTEIN,URINE DIPSTICK NEGATIVE (NEGATIVE); URINE UROBILINOGEN 0.2 mg/dL (0.2 - 1)
[2020-01-10 03:19] LABS: BACTERIA,URINE MODERATE /HPF; EPITHELIAL CELLS,URINE FEW /LPF; RBC,URINE 0-5 /HPF (0-5); WBC,URINE (MAN) 0-5 /HPF (0-5)
[2020-01-10] MEDS ORDERED: LISINOPRIL 5 MG PO SCH (06:00)
--- NOTE | 2020-01-10 06:00 | History and Physical ---
CHIEF COMPLAINT: 1. Shortness of breath. 2. Fatigue. 3. Cough. HISTORY OF PRESENT ILLNESS: This is a 74-year-old female with a past medical history of coronary artery disease, cardiomyopathy, hypertension, hyperlipidemia, diabetes, congestive heart failure, and COPD, was in her usual state of health until few days ago like four or five days ago she started developing increasing shortness of breath, shortness of breath on exertion, mild cough, but no chest pain, very fatigued. The symptoms progressively increased. The patient came to ER today. Some mild abdominal pain, but no nausea. No vomiting. No diarrhea. No constipation. No hematemesis. No melena. Genitourinary system, no dysuria, no hematuria. Musculoskeletal exam, some joint pain. ALLERGIES: ALLERGY TO LEVAQUIN. PAST MEDICAL HISTORY: 1. Cardiomyopathy. 2. Coronary artery disease. 3. Congestive heart failure. 4. COPD. 5. Hypertension. 6. Hyperlipidemia. 7. Diabetes mellitus type 2. PAST SURGICAL HISTORY: 1. History of AICD and pacemaker. 2. History of coronary artery bypass graft. SOCIAL HISTORY: This patient is , lives with her daughter. HABITS: Denies smoking. Denies alcohol use. Denies illicit drug use. FAMILY HISTORY: Noncontributory. MEDICATIONS: List attached. REVIEW OF SYSTEMS: CONSTITUTIONAL: Generalized fatigue and weakness. HEENT: No diplopia or blurring of vision. CARDIOPULMONARY: No chest pain, but has cough and shortness of breath. No hemoptysis. ALIMENTARY SYSTEM: No nausea. No vomiting. No hematemesis. No melena. GENITOURINARY SYSTEM: No dysuria. No hematuria. MUSCULOSKELETAL: No joint pain. CENTRAL NERVOUS SYSTEM: No focal weakness. No seizures. PHYSICAL EXAMINATION: GENERAL: This is a 74-year-old female who is alert, oriented x3, in mild respiratory distress. VITAL SIGNS: Temperature 98.2, pulse 79, respiratory rate 18, blood pressure 130/80. HEENT: Head is atraumatic, normocephalic. Pupils bilaterally equal to light. Extraocular muscles intact. NECK: Supple. Mild JVD. Skin is dry. Tongue is dry. LUNGS: Air entry is fair. Decreased breath sounds at both lung garcia. HEART: S1 and S2 regular rate and rhythm. No S3, no S4, or murmur. ABDOMEN: Soft, nontender. No guarding. No rigidity. EXTREMITIES: +1 pitting edema. Peripheral pulses +1. STAFF RESEARCH ASSOCIATE: Grossly nonfocal. LABORATORY DATA: Chest x-ray, COPD, pulmonary hypertension, mild CHF. WBC 6.78. BNP 8871. CK, CK-MB normal. BUN, creatinine normal. Hemoglobin, hematocrit normal. CT of chest with PE protocol pending. ASSESSMENT: 1. Exacerbation of chronic obstructive pulmonary disease. 2. Exacerbation of chronic congestive heart failure, systolic, acute on chronic. 3. Cardiomyopathy. 4. Ischemic cardiomyopathy. 5. Coronary artery disease. 6. Diabetes mellitus type 2. 7. Hyperlipidemia. 8. Hypertension. 9. Bronchitis, rule out pneumonia. PLAN: Admit patient to telemetry. Cardiology consult, Dr. Gomez. Pulmonary consult, Dr. Edwards. Neb treatment, DuoNeb q.4 hours. Solu-Medrol 40 IV b.i.d., Lasix 40 IV b.i.d. Continue all home medicines. BMP in the morning. Oxygen p.r.n. Case discussed with the patient and daughter, total condition and prognosis, explained all medical conditions in detail. Condition and prognosis are guarded. MD SAMEER Ann/TIANA /[id number]
[2020-01-10 06:20] LABS: BASOPHILS % 0.5 % (0.0-1.0); EOSINOPHILS % 0.2 % (0.0-6.0); HEMATOCRIT 37.2 % (34.2-44.1); LYMPHOCYTES # (AUTO) 0.8 (1.0-3.2); LYMPHOCYTES % 11.4 % (18.0-39.1); MEAN CORPUSCULAR HEMOGLOBIN 24.7 pg (28-32); MEAN CORPUSCULAR HGB CONC 29.6 g/dL (31-35); MEAN CORPUSCULAR VOLUME 83.4 fL (81-99); MONOCYTES # (AUTO) 0.2 (0.2-0.8); MONOCYTES % 2.4 % (4.4-11.3); NEUTROPHILS # (AUTO) 5.6 (2.1-6.9); NEUTROPHILS % 85.2 % (38.7-80.0); PLATELET COUNT 168 x10e3/uL (140-360); RED BLOOD COUNT 4.46 x10e6/uL (3.6-5.1); RED CELL DISTRIBUTION WIDTH 21.4 % (11.7-14.4)
[2020-01-10 06:28] LABS: CREATINE KINASE 49 IU/L (29-168)
--- NOTE | 2020-01-10 07:00 | NUR ---
RECD BEDSIDE REPORT. PATIENT IN BED, TWO FEMALE FAMILY MEMBERS SLEEPING IN ROOM. PT IN NO APPARENT DISTRESS, HAS NO NEEDS AT THIS TIME.
[2020-01-10 07:04] LABS: ANION GAP 13.5 mmol/L (8-16); CALCIUM 9.4 mg/dL (8.4-10.2); CREATININE, SERUM 1.08 mg/dL (0.57-1.11); POTASSIUM 4.5 mmol/L (3.5-5.1)
--- NOTE | 2020-01-10 07:12 | NUR ---
GAVE BEDSIDE SHIFT REPORT TO ONCOMING NURSE. CALL LIGHT WITHIN REACH. PATIENT IN BED. DAUGHTERS AT THE BEDSIDE.
--- NOTE | 2020-01-10 07:44 | Diagnostic Imaging Report ---
EXAMINATION: CHEST SINGLE (PORTABLE) COMPARISON: Chest x-ray 01/09/2020, CT chest 01/09/2020. INDICATION: SOB DISCUSSION: LINES: Left-sided AICD with leads terminating in the right atrium and right ventricle. LUNGS: Emphysematous lungs. Interval development of mild perihilar and interstitial opacities. Increasing patchy lower lung zone opacities, which may represent atelectasis or alveolar edema. PLEURA: No pleural effusion or pneumothorax. HEART AND MEDIASTINUM: Stable cardiomegaly and cardiac bypass changes. Pulmonary arteries are enlarged suggestive of pulmonary artery hypertension BONES AND SOFT TISSUES: Median sternotomy wires are intact. No acute osseous abnormality. IMPRESSION: Cardiomegaly with interval development of mild pulmonary edema. Signed by: Dr. Chaka Cerna MD on 01/10/2020 7:41 AM
[2020-01-10] MEDS: PANTOPRAZOLE SOD 40 MG TABEC PO SCH (08:54)
[2020-01-10] MEDS: CARVEDILOL 12.5 MG TAB PO SCH ×2 (09:00→16:27)
[2020-01-10] MEDS ORDERED: FUROSEMIDE INJ 10 MG/ML 4 ML VIAL IV SCH (09:00)
[2020-01-10] MEDS: LISINOPRIL 2.5 MG TAB PO SCH (09:00)
[2020-01-10] MEDS ORDERED: CARVEDILOL 3.125 MG TAB PO SCH (09:00)
--- NOTE | 2020-01-10 09:00 | NUR ---
HOSP ON BACKORDER LASIX IV. NOTIFIED, AWAITING INSTRUCTIONS
[2020-01-10 10:09] LABS: % IRON SATURATION 5 % (15-50); IRON 25 ug/dL (50-170); TOTAL IRON BINDING CAPACITY 463 ug/dL (261-478); TRANSFERRIN 331 mg/dL (180-382)
[2020-01-10] MEDS: SPIRONOLACTONE 25 MG TAB PO SCH (10:57)
--- NOTE | 2020-01-10 11:07 | NUR ---
NEW ORDERS RECD
[2020-01-10] MEDS ORDERED: BUMETANIDE 1 MG TAB PO SCH (11:30)
[2020-01-10 15:39] LABS: CREATINE KINASE 34 IU/L (29-168)
--- NOTE | 2020-01-10 17:19 | Consultation ---
DATE OF CONSULTATION: 01/10/2020 Pulmonary Consult[address] Patient of Dr. Judi Alonso. HISTORY OF PRESENT ILLNESS: Charming but unfortunate 74-year-old woman with a history of ischemic cardiomyopathy, admitted with shortness of breath and abdominal swelling. History of pulmonary embolus in the past. Questionable history of COPD, though she has never smoked. History of diabetes and hypertension, had coronary bypass surgery in 2007. AICD apparently was implanted at that time. Obese white female lying on her right side, complaining of some shortness of breath and swelling in the abdomen, concern with regard to gallstones, though recent ultrasound revealed no evidence of gallstones. PHYSICAL EXAMINATION: VITAL SIGNS: Temperature 97, pulse 73, respirations 20, blood pressure 124/61. HEAD: Normocephalic, atraumatic. EYES: Extraocular movements intact. LUNGS: Few rales. HEART: Regular rhythm. ABDOMEN: Obese. EXTREMITIES: IMPRESSION: 1. Congestive heart failure. 2. Iron deficiency anemia. 3. No evidence of gallstones. Hospital had showed no supply of IV Lasix, we changed to Bumex. Mobilization. There was no evidence of pulmonary emboli. Continue prophylactic Lovenox, supplemental oxygen. Observe for possible obstructive sleep apnea. Thank you for this kind referral. MD PAUL Kirby/MODL /[id number]
[2020-01-10] MEDS ORDERED: BUMETANIDE INJ 0.25MG/ML 4ML VIAL IV ONE (17:45)
--- NOTE | 2020-01-10 19:05 | NUR ---
RECEIVED REPORT FROM PREVIOUS NURSE. CALL LIGHT WITHIN REACH. PATIENT IN BED.
--- NOTE | 2020-01-10 23:50 | Consultation ---
DATE OF CONSULTATION: 01/10/2020 Cardiology Consultation REQUESTING PHYSICIAN: Dr. Marquise Alonso. REASON FOR CONSULTATION: Congestive heart failure. HISTORY OF PRESENT ILLNESS: This is a 74-year-old woman with chronic systolic heart failure; status post BiV ICD, coronary artery disease; status post 3-vessel CABG; hyperlipidemia; hypertension; diabetes mellitus; and COPD, who presents with complaints of shortness of breath and lower extremity swelling. The patient reports that she had been doing well until last month when she was admitted to [facility] for congestive heart failure. Family at bedside indicates the patient has not fully recovered after her hospitalization. Two weeks ago, the patient began noticing increasing lower extremity swelling. She developed shortness of breath starting on Wednesday, which has been progressive since onset such that she presented to the ER yesterday for further evaluation. She endorses dyspnea on exertion with minimal activity as well as orthopnea and PND. She denied any chest pain or palpitations. REVIEW OF SYSTEMS: Negative except as per HPI. PAST MEDICAL HISTORY: 1. Chronic systolic heart failure, status post BiV ICD. 2. Coronary artery disease, status post 3-vessel CABG. 3. Hypertension. 4. Hyperlipidemia. 5. Diabetes mellitus. 6. COPD. PAST SURGICAL HISTORY: 1. Three-vessel CABG. 2. AICD. SOCIAL HISTORY: No tobacco or alcohol. FAMILY HISTORY: Noncontributory to current illness. PHYSICAL EXAMINATION: VITAL SIGNS: Temperature 97.7 degrees, pulse 70, respiratory rate 18, blood pressure 109/72, and oxygen saturation 95% on 2 L nasal cannula. GENERAL: Obese woman, elderly, in no acute distress, well developed and well nourished. HEENT: Normocephalic and atraumatic. Pupils are equal. No scleral icterus. NECK: Supple. No thyroid or cervical lymphadenopathy. No carotid bruits. LUNGS: Clear to auscultation bilaterally. No wheeze or crackles. CARDIOVASCULAR: Normal rate and regular rhythm. Normal S1 and S2. ABDOMEN: Soft and nontender. EXTREMITIES: 1+ pitting edema. NEUROLOGIC: Nonfocal exam. LABORATORY DATA: WBC 6.58, hemoglobin 11, hematocrit 37.2, and platelets 168. Sodium 137, potassium 4.5, chloride 99, CO2 of 29, BUN 13, and creatinine 1.08. BNP 887. Troponin less than 0.001. EKG, sinus rhythm with old inferior infarct and ST-T wave abnormalities. IMPRESSION: 1. Okktm-jj-[id number] systolic heart failure. 2. Coronary artery disease, status post 3-vessel coronary artery bypass graft. 3. Hypertension. 4. Hyperlipidemia. 5. Diabetes mellitus. 6. Chronic obstructive pulmonary disease. RECOMMENDATIONS: Change to IV Bumex. Continue spironolactone. Monitor creatinine, replete electrolytes. Blood pressure is acceptable. Monitor the patient closely on telemetry. Continue home cardiac medications otherwise. Thank you for this consult. We will continue to follow. Shana Toro MD ABS/MODL /[id number]
[2020-01-11] VITALS (9 sets, daily range): BP systolic 97–152; BP diastolic 49–68
[2020-01-11 05:54] LABS: ANION GAP 11.4 mmol/L (8-16); CREATININE, SERUM 0.94 mg/dL (0.57-1.11); POTASSIUM 4.4 mmol/L (3.5-5.1)
--- NOTE | 2020-01-11 06:51 | NUR ---
GAVE REPORT TO ONCOMING NURSE. CALL LIGHT WITHIN REACH. PATIENT IN BED. DAUGHTER AT THE BEDSIDE.
[2020-01-11] MEDS: INSULIN LISPRO 100 UNIT/1 ML 3ML VIAL SQ SCH ×4 (07:30→21:00)
[2020-01-11] MEDS: PANTOPRAZOLE SOD 40 MG TABEC PO SCH (07:30)
[2020-01-11] MEDS: CARVEDILOL 12.5 MG TAB PO SCH ×2 (08:33→17:00)
[2020-01-11] MEDS: SPIRONOLACTONE 25 MG TAB PO SCH (08:33)
[2020-01-11] MEDS: LISINOPRIL 2.5 MG TAB PO SCH (08:34)
[2020-01-11] MEDS: METHYLPREDNISOLONE SOD SUCC 40 MG/ML VIAL 1ML IV SCH ×2 (08:48→21:52)
[2020-01-11] MEDS: IRON SUCROSE 100 MG in SODIUM CHLORIDE 0.9% 100 ML 100 ML IV SCH (11:03)
--- NOTE | 2020-01-11 13:45 | Diagnostic Imaging Report ---
EXAM: US ABDOMEN COMPLETE DATE: 01/11/2020 12:00 AM INDICATION: Abdominal distention COMPARISON: CT abdomen and pelvis of 12/09/2019 TECHNIQUE: Transverse and longitudinal morley scale and color doppler sonographic images of the upper abdomen were obtained. FINDINGS: LIVER 17 cm in the right midclavicular line. Normal echogenicity of the liver with normal contour, no masses. SPLEEN 8.5 cm in maximum diameter. Normal echogenicity, no masses. GALLBLADDER Small dependent stones in the gallbladder. No gallbladder distension, or pericholecystic fluid. Negative reported sonographic Hawkins's sign. The gallbladder wall measures 4mm BILE DUCTS No intra nor extra-hepatic biliary dilation. Common bile duct measures 3mm PANCREAS: Visualized portions are normal. RIGHT KIDNEY: 10.4 cm Echogenicity: Normal Collecting System: No hydronephrosis Stones: None Cyst/Mass: None LEFT KIDNEY: 10.2 cm Echogenicity: Normal Collecting System: No hydronephrosis Stones: None Cyst/Mass: Upper pole exophytic anechoic simple cyst measures 2.2 x 1.6 x 1.9 cm. VESSELS: Aorta: Visualized portions are within normal size limits Inferior Vena Cava: Visualized portions are normal Main Portal Vein: 0.7 cm, normal size with hepatopetal flow. FREE FLUID: None IMPRESSION: Cholelithiasis without specific sonographic evidence of cholecystitis. Left lower pole simple renal cyst. Signed by: Antonia De La Torre MD on 01/11/2020 1:42 PM
[2020-01-11] MEDS ORDERED: FUROSEMIDE INJ 10 MG/ML 4 ML VIAL IV SCH (17:50)
--- NOTE | 2020-01-11 19:00 | NUR ---
RECEIVED REPORT FROM PREVIOUS NURSE. CALL LIGHT WITHIN REACH. PATIENT IN BED. DAUGHTER AT THE BEDSIDE.
--- NOTE | 2020-01-11 20:38 | Progress Note ---
DATE: 01/11/2020 Cardiology Progress Note SUBJECTIVE: The patient denies chest pain, but continues to have shortness of breath. OBJECTIVE: VITAL SIGNS: Temperature 97.2 degrees, pulse 78, respiratory rate 20, blood pressure 152/68, and oxygen saturation 98% on 2 L nasal cannula. GENERAL: Obese woman, in no acute distress, awake and alert. LUNGS: Clear to auscultation bilaterally. No wheezes or crackles. CARDIOVASCULAR: Normal rate. Regular rhythm. No murmur. Normal S1 and S2. ABDOMEN: Soft and nontender. EXTREMITIES: 1+ pitting edema. CARDIAC MEDICATIONS: Simvastatin 40 mg p.o. at bedtime, carvedilol 25 mg p.o. b.i.d., lisinopril 5 mg p.o. daily, and spironolactone 25 mg p.o. daily. LABORATORY DATA: Sodium 136, potassium 4.4, chloride 97, CO2 32, BUN 13, and creatinine 0.94. Telemetry was personally reviewed and interpreted, revealing normal sinus rhythm. IMPRESSION: 1. Ooaaj-cu-chikvni systolic heart failure. 2. Coronary artery disease, status post three-vessel coronary artery bypass grafting. 3. Hypertension. 4. Hyperlipidemia. 5. Diabetes mellitus. 6. Chronic obstructive pulmonary disease. RECOMMENDATIONS: Continue IV diuretics. Continue current cardiac medications otherwise. Creatinine is stable. Replete electrolytes. Blood pressure is reasonably controlled. Monitor the patient closely on telemetry. Continue current cardiac medications otherwise. Thank you for this consult. We will continue to follow. Shana Toro MD ABS/MODL /[id number]
[2020-01-11] MEDS: METFORMIN HCL 500 MG TAB PO SCH (21:52)
[2020-01-11] MEDS: FUROSEMIDE INJ 10 MG/ML 4 ML VIAL IV SCH (21:52)
[2020-01-11] MEDS: SIMVASTATIN 40 MG TAB PO SCH (21:52)
[2020-01-12] VITALS (10 sets, daily range): BP systolic 94–127; BP diastolic 50–80
--- NOTE | 2020-01-12 03:38 | NUR ---
HOURLY ROUNDING PERFORMED. CALL LIGHT WITHIN REACH. PATIENT ASLEEP IN BED. DAUGHTER AT BEDSIDE.
[2020-01-12 06:01] LABS: ALBUMIN 3.4 g/dL (3.5-5.0); ALBUMIN/GLOBULIN RATIO 1.2 (0.8-2.0); ANION GAP 13.4 mmol/L (8-16); CALCIUM 9.3 mg/dL (8.4-10.2); CREATININE, SERUM 0.95 mg/dL (0.57-1.11); POTASSIUM 4.4 mmol/L (3.5-5.1)
--- NOTE | 2020-01-12 06:46 | NUR ---
GAVE REPORT TO MANDEEP HIGGINS. CALL LIGHT WITHIN REACH. PATIENT ASLEEP IN BED. DAUGHTER AT BEDSIDE. Addendum: 01/12/20 at 0701 by Monik Lan RN BEDSIDE SHIFT REPORT
[2020-01-12] MEDS: CARVEDILOL 12.5 MG TAB PO SCH ×2 (08:59→17:00)
[2020-01-12] MEDS: FUROSEMIDE INJ 10 MG/ML 4 ML VIAL IV SCH ×2 (08:59→21:00)
[2020-01-12] MEDS: METHYLPREDNISOLONE SOD SUCC 40 MG/ML VIAL 1ML IV SCH (08:59)
[2020-01-12] MEDS: PANTOPRAZOLE SOD 40 MG TABEC PO SCH (09:00)
[2020-01-12] MEDS: LISINOPRIL 2.5 MG TAB PO SCH (09:00)
[2020-01-12] MEDS: SPIRONOLACTONE 25 MG TAB PO SCH (09:00)
[2020-01-12] MEDS: IRON SUCROSE 100 MG in SODIUM CHLORIDE 0.9% 100 ML 100 ML IV SCH (09:38)
[2020-01-12] MEDS: INSULIN LISPRO 100 UNIT/1 ML 3ML VIAL SQ SCH ×4 (09:41→21:36)
--- NOTE | 2020-01-12 13:17 | Progress Note ---
DATE: 01/12/2020 Cardiology Progress Note SUBJECTIVE: The patient denies chest pain. She reports her shortness of breath is better. OBJECTIVE: VITAL SIGNS: Temperature 98 degrees, pulse 81, respiratory rate 20, blood pressure 127/75, oxygen saturation 97% on nasal cannula 2 L. GENERAL: Obese woman, in no acute distress. Awake and alert. LUNGS: Clear to auscultation bilaterally. No wheeze or crackles. CARDIOVASCULAR: Tachycardic but regular. No murmur. Normal S1 and S2. ABDOMEN: Soft and nontender. EXTREMITIES: Trace edema. CARDIAC MEDICATIONS: 1. Lisinopril 5 mg p.o. daily. 2. Spironolactone 25 mg p.o. daily. 3. Furosemide 40 mg IV q.12 hours. 4. Carvedilol 25 mg p.o. b.i.d. 5. Simvastatin 40 mg p.o. at bedtime. LABORATORY DATA: WBC 6.58, hemoglobin 11, hematocrit 37.2, platelets 168. Sodium 138, potassium 4.4, chloride 97, CO2 of 32, BUN 15, and creatinine 0.95. Telemetry was personally reviewed and interpreted, revealing sinus tachycardia. IMPRESSION: 1. Seznd-db-kjfgmpb systolic heart failure. 2. Coronary artery disease, status post three-vessel coronary artery bypass grafting. 3. Hypertension. 4. Hyperlipidemia. 5. Diabetes mellitus. 6. Chronic obstructive pulmonary disease. RECOMMENDATIONS: Continue IV diuretics. Creatinine is stable. Monitor and replete electrolytes. Continue current cardiac medications. Wean supplemental oxygen. Blood pressure is controlled. Monitor on telemetry while admitted. Thank you for this consult. We will continue to follow. Shana Toro MD ABS/MODL /[id number]
--- NOTE | 2020-01-12 18:43 | NUR ---
DR. HENRY CALLED AND ASKED IF PATIENT WAS READY FOR D/C. CALLED DR. BRAGA AND SHE SAID THE PATEINT NEEDED TO NOT BE HYPOXIC BEFORE SHE WAS ABLE TO LEAVE. THE PATIENT DOES NOT USE O2 AT HOME. ATTEMPTED TO CALL DR. Susan MORENO BACK AND WAS UNABLE TO GET THROUGH TO HIM ON [facility]
[2020-01-12] MEDS: METFORMIN HCL 500 MG TAB PO SCH (21:35)
[2020-01-12] MEDS: SIMVASTATIN 40 MG TAB PO SCH (21:35)
[2020-01-13] VITALS (10 sets, daily range): BP systolic 82–114; BP diastolic 44–60
--- NOTE | 2020-01-13 07:00 | NUR ---
BEDSIDE SHIFT REPORT RECEIVED PT IN STABLE CONDITION, NO SS OF DISTRESS NOTED, UPDATED ON POC VOICED UNDERSTANDING, R FA 20G NO SS OF INFILTRATION NOTED, NO OTHER CO VOCIED CALL LIGHT IN REACH WILL CONTINUE TO MONITOR
[2020-01-13] MEDS: INSULIN LISPRO 100 UNIT/1 ML 3ML VIAL SQ SCH ×4 (07:30→20:37)
[2020-01-13] MEDS: PANTOPRAZOLE SOD 40 MG TABEC PO SCH (08:03)
[2020-01-13] MEDS: FUROSEMIDE INJ 10 MG/ML 4 ML VIAL IV SCH ×2 (08:04→20:37)
[2020-01-13] MEDS: CARVEDILOL 12.5 MG TAB PO SCH (08:05)
[2020-01-13] MEDS: SPIRONOLACTONE 25 MG TAB PO SCH (08:05)
[2020-01-13] MEDS: LISINOPRIL 2.5 MG TAB PO SCH (08:06)
[2020-01-13] MEDS ORDERED: PREDNISONE 20 MG TAB PO SCH (09:00)
[2020-01-13] MEDS: IRON SUCROSE 100 MG in SODIUM CHLORIDE 0.9% 100 ML 100 ML IV SCH (09:16)
[2020-01-13] MEDS: CARVEDILOL 3.125 MG TAB PO SCH (16:09)
[2020-01-13 16:29] LABS: ANION GAP 10.6 mmol/L (8-16); BLOOD UREA NITROGEN 18 mg/dL (7-26); BUN/CREATININE RATIO 20 (6-25); CALCIUM 9.2 mg/dL (8.4-10.2); CARBON DIOXIDE 35 mmol/L (22-29); CHLORIDE 91 mmol/L (98-107); CREATININE, SERUM 0.88 mg/dL (0.57-1.11); EST GLOMERULAR FILTRATION RATE > 60 ML/MIN (60-); GLUCOSE 215 mg/dL (74-118); POTASSIUM 4.6 mmol/L (3.5-5.1); SODIUM 132 mmol/L (136-145)
--- NOTE | 2020-01-13 18:48 | Progress Note ---
DATE: 01/13/2020 Cardiology Progress Note SUBJECTIVE: The patient denies chest pain or shortness of breath. She was hypoxic with ambulation on room air yesterday. OBJECTIVE: VITAL SIGNS: Temperature 97.6 degrees, pulse 77, respiratory rate 16, blood pressure 114/54, and oxygen saturation 97% on 2 L. GENERAL: Obese woman, in no acute distress. Awake and alert. LUNGS: Clear to auscultation bilaterally. No wheezes or crackles. CARDIOVASCULAR: Normal rate regular rhythm. No murmur. Normal S1, S2. ABDOMEN: Soft, nontender. EXTREMITIES: Trace edema. CARDIAC MEDICATIONS: Spironolactone 25 mg p.o. daily, Lasix 40 mg IV q.12 hours, simvastatin 40 mg p.o. at bedtime, lisinopril 5 mg p.o. daily, carvedilol 3.125 mg p.o. b.i.d. LABORATORY DATA: None today. Telemetry was personally reviewed and interpreted revealing normal sinus rhythm. IMPRESSION: 1. Zvklg-dy-wteqvts systolic heart failure. 2. Coronary artery disease, status post 3-vessel CABG. 3. Hypertension. 4. Hyperlipidemia. 5. Diabetes mellitus. 6. Chronic obstructive pulmonary disease. RECOMMENDATIONS: Continue IV diuretics and spironolactone. Monitor creatinine. Replete electrolytes. The patient became hypotensive today. We will adjust her antihypertensive therapy back to home dosing. Continue current cardiac medications otherwise. The patient's hypoxia needs to resolve prior to discharge or home O2 will need to be arranged. Monitor the patient closely on telemetry while admitted. Thank you for this consult. We will continue to follow. Shana Toro MD ABS/MODL /[id number]
[2020-01-13] MEDS: SIMVASTATIN 40 MG TAB PO SCH (20:37)
[2020-01-13] MEDS: METFORMIN HCL 500 MG TAB PO SCH (20:37)
[2020-01-14] VITALS (8 sets, daily range): BP systolic 89–115; BP diastolic 50–69
--- NOTE | 2020-01-14 07:00 | NUR ---
BEDSIDE SHIFT REPORT RECEIVED PT IN STABLE CONDITION, DENIES PAIN AT THIS TIME, R AC 20G NO SS OF INFILTRATION NOTED, NO OTHER CO VOICED CALL LIGHT IN REACH WILL CONTINUE TO MONITOR
[2020-01-14] MEDS: INSULIN LISPRO 100 UNIT/1 ML 3ML VIAL SQ SCH ×4 (07:30→20:36)
[2020-01-14] MEDS: CARVEDILOL 3.125 MG TAB PO SCH ×2 (08:00→17:00)
[2020-01-14] MEDS: PANTOPRAZOLE SOD 40 MG TABEC PO SCH (08:10)
[2020-01-14] MEDS ORDERED: PREDNISONE 5 MG TAB PO SCH (09:00)
[2020-01-14] MEDS: FUROSEMIDE INJ 10 MG/ML 4 ML VIAL IV SCH ×2 (09:00→20:32)
[2020-01-14] MEDS: SPIRONOLACTONE 25 MG TAB PO SCH (09:00)
[2020-01-14 13:31] LABS: BASOPHILS % 0.1 % (0.0-1.0); EOSINOPHILS % 0.3 % (0.0-6.0); HEMATOCRIT 37.9 % (34.2-44.1); HEMOGLOBIN 11.4 g/dL (12.0-16.0); LYMPHOCYTES # (AUTO) 0.6 (1.0-3.2); LYMPHOCYTES % 5.9 % (18.0-39.1); MEAN CORPUSCULAR HEMOGLOBIN 25.3 pg (28-32); MEAN CORPUSCULAR HGB CONC 30.1 g/dL (31-35); MEAN CORPUSCULAR VOLUME 84.2 fL (81-99); MONOCYTES # (AUTO) 0.7 (0.2-0.8); MONOCYTES % 6.8 % (4.4-11.3); NEUTROPHILS % 86.3 % (38.7-80.0); PLATELET COUNT 169 x10e3/uL (140-360)
[2020-01-14 13:48] LABS: ANION GAP 13.3 mmol/L (8-16); CALCIUM 9.2 mg/dL (8.4-10.2); CREATININE, SERUM 0.92 mg/dL (0.57-1.11); POTASSIUM 4.3 mmol/L (3.5-5.1)
--- NOTE | 2020-01-14 15:01 | Progress Note ---
DATE: 01/14/2020 Cardiology Progress Note SUBJECTIVE: The patient denies chest pain, shortness of breath, or dizziness. Medications were held due to hypotension. OBJECTIVE: VITAL SIGNS: Temperature 98 degrees, pulse 68, respiratory rate 18, blood pressure 96/56, and oxygen saturation 98% on 2 liters nasal cannula. GENERAL: Morbidly obese woman, awake, alert, in no acute distress. LUNGS: Clear to auscultation bilaterally. No wheezes or crackles. CARDIOVASCULAR: Normal rate. Regular rhythm. No murmur. Normal S1 and S2. ABDOMEN: Soft and nontender. EXTREMITIES: Trace edema. CARDIAC MEDICATIONS: 1. Simvastatin 40 mg p.o. at bedtime. 2. Carvedilol 3.125 mg p.o. b.i.d. 3. Furosemide 40 mg IV every 12 hours. 4. Spironolactone 25 mg p.o. daily. 5. Lisinopril 5 mg p.o. at bedtime. LABORATORY DATA: Pending. TELEMETRY: Personally reviewed and interpreted, revealing normal sinus rhythm. IMPRESSION: 1. Acute on chronic systolic heart failure. 2. Coronary artery disease, status post three vessel coronary artery bypass graft. 3. Hypertension, currently hypotensive. 4. Hyperlipidemia. 5. Diabetes mellitus. 6. Chronic obstructive pulmonary disease. RECOMMENDATIONS: Blood pressure medications and diuretics were held due to hypotension. Check labs. Continue further recommendations based on lab results. Continue statin therapy. Monitor the patient closely on telemetry. The patient may require home O2 for discharge. Thank you for this consult. We will continue to follow. Shana Toro MD ABS/MODL /[id number]
[2020-01-14] MEDS: METFORMIN HCL 500 MG TAB PO SCH (20:32)
[2020-01-14] MEDS: SIMVASTATIN 40 MG TAB PO SCH (20:32)
[2020-01-14] MEDS ORDERED: LISINOPRIL 2.5 MG TAB PO SCH (21:00)
[2020-01-15] VITALS: BP 99/51
[2020-01-15 04:00] VITALS: BP 99/55
--- NOTE | 2020-01-15 07:00 | NUR ---
RECEIVED PATIENT AWAKE RESTING IN BED NO S/S OF DISTRESS. BED LOW, WHEELS LOCKED, SIDE RAILS X2, CALL LIGHT IN REACH WILL CONTINUE TO MONITOR PATIENT.
[2020-01-15] MEDS: INSULIN LISPRO 100 UNIT/1 ML 3ML VIAL SQ SCH ×2 (07:30→11:30)
[2020-01-15 08:37] VITALS: BP 116/67
[2020-01-15] MEDS: CARVEDILOL 3.125 MG TAB PO SCH (08:47)
[2020-01-15] MEDS: FUROSEMIDE INJ 10 MG/ML 4 ML VIAL IV SCH (08:47)
[2020-01-15] MEDS: PANTOPRAZOLE SOD 40 MG TABEC PO SCH (08:47)
[2020-01-15 09:14] VITALS: BP 116/67
--- NOTE | 2020-01-15 11:45 | NUR ---
REMOVED PATIENTS IV. CATHETER TIP INTACT AND PRESSURE DRESSING APPLIED.
[2020-01-15 12:03] VITALS: BP 92/54
--- NOTE | 2020-01-15 12:26 | NUR ---
PATIENT DISCHARGED FROM FACILITY. PATIENT GATHERED ALL PERSONAL BELONGINGS, DISCHARGE INSTRUCTIONS, AND FOLLOW UP INFORMATION. PATIENT LEFT UNIT IN WHEELCHAIR AND WENT HOME VIA PRIVATE AUTO. NO S/S OF DISTRESS WHEN LEAVING FACILITY.
--- NOTE | 2020-01-15 14:19 | NUR ---
ORDERS FOR HOME 02 SATS ON ROOM AIR 87% CHOICE LETTER SIGNED FOR [facility] COPY OF CHOICE LETTER GIVEN TO PT'S DTR PH:[phone] FAX:[phone] [employer] [facility] DELIVERED PORTABLE TO ROOM CONFIRMED PT'S ADDRESS AND PHONE NUMBER IMM EXPLAINED TO PT, SIGNED AND PLACED IN CHART COPY OF IMM TO PT
== END 2020-01-15 12:26 | disposition home or self-care (01) | DRG 190 ==
LOC: ER 14:50 → ERHOLD 20:04 → MED/SURG 01-10 00:58
PROVIDERS: ADMIT Internal Medicine; ATTEND Internal Medicine
DX: J44.1 Chronic obstructive pulmonary disease with (acute) exacerbation (principal); I50.23 Acute on chronic systolic (congestive) heart failure; I11.0 Hypertensive heart disease with heart failure; I25.5 Ischemic cardiomyopathy; E11.9 Type 2 diabetes mellitus without complications; E78.5 Hyperlipidemia, unspecified; Z95.1 Presence of aortocoronary bypass graft
CPT/HCPCS: 36415; 71045; 71260; 76700; 80048; 80053; 81001; 82550; 82553; 82948; 83540; 83690; 83880; 84466; 84484; 85025; 85379; 85610; 85730; 93005; 94660; 96372; 97139; 99284; J1650; J1756; J1940; J2920; J7512; Q9967

== ENCOUNTER 2020-11-08 17:40 | Emergency (ER) | payer MEDICARE ==
[~2020-11-08] VITALS: Ht 149.9 cm; Wt 87.1 kg
[~2020-11-08 17:40] MED LIST changes: +ALBUTEROL0.63 MG/3 INH; +ASPIRIN EC81 MG PO; +ATORVASTATIN CA20 MG PO; +FAMOTIDINE20 MG PO; +FERROUS SULFAT325 MG PO
[2020-11-08] MEDS ORDERED: PANTOPRAZOLE 40 MG 10ML VIAL IV STA (18:22)
[2020-11-08] MEDS ORDERED: ONDANSETRON HCL INJ 2MG/ML 2ML 2 MG/ML VIAL IV STA (18:26)
[2020-11-08] MEDS ORDERED: DICYCLOMINE HCL 20 MG/2 ML VIAL IM ONE (18:30)
[2020-11-08 19:06] LABS: BASOPHILS # (AUTO) 0.1 (0.0-0.1); BASOPHILS % 0.5 % (0.0-1.0); EOSINOPHILS % 0.1 % (0.0-6.0); HEMATOCRIT 43.7 % (34.2-44.1); HEMOGLOBIN 14.3 g/dL (12.0-16.0); LYMPHOCYTES # (AUTO) 0.8 (1.0-3.2); MEAN CORPUSCULAR HEMOGLOBIN 29.3 pg (28-32); MEAN CORPUSCULAR HGB CONC 32.7 g/dL (31-35); MEAN CORPUSCULAR VOLUME 89.5 fL (81-99); MONOCYTES # (AUTO) 0.4 (0.2-0.8); MONOCYTES % 4.5 % (4.4-11.3); NEUTROPHILS % 85.5 % (38.7-80.0); PLATELET COUNT 186 x10e3/uL (140-360); RED BLOOD COUNT 4.88 x10e6/uL (3.6-5.1); RED CELL DISTRIBUTION WIDTH 13.5 % (11.7-14.4)
[2020-11-08 19:26] LABS: AMYLASE 32 U/L (25-125); LIPASE 18 U/L (8-78)
[2020-11-08 19:30] LABS: ALBUMIN 3.9 g/dL (3.5-5.0); ALBUMIN/GLOBULIN RATIO 1.3 (0.8-2.0); ANION GAP 15.4 mmol/L (8-16); CALCIUM 8.7 mg/dL (8.4-10.2); CREATININE, SERUM 0.91 mg/dL (0.57-1.11); POTASSIUM 3.4 mmol/L (3.5-5.1)
[2020-11-08 19:37] LABS: CREATINE KINASE MB 1.3 ng/mL (0-5.0)
[2020-11-08] MEDS ORDERED: ZOFRAN4 MG PO (21:15)
[2020-11-08] MEDS ORDERED: DICYCLOMINE HCL20 MG PO (21:15)
[2020-11-08] MEDS ORDERED: PANTOPRAZOLE SO40 MG PO (21:15)
[2020-11-08 22:31] VITALS: BP 142/89
== END 2020-11-08 22:30 | disposition home or self-care (01) ==
LOC: ER 18:20
DX: R10.11 Right upper quadrant pain (principal); R11.2 Nausea with vomiting, unspecified; K80.20 Calculus of gallbladder without cholecystitis without obstruction; E11.65 Type 2 diabetes mellitus with hyperglycemia; I10 Essential (primary) hypertension; E78.5 Hyperlipidemia, unspecified; I25.10 Atherosclerotic heart disease of native coronary artery without angina pectoris; J44.9 Chronic obstructive pulmonary disease, unspecified; I25.2 Old myocardial infarction
CPT/HCPCS: 36415; 76705; 80053; 82150; 82550; 82553; 83690; 84484; 85025; 93005; 99284; C9113; J0500; J2405

== ENCOUNTER 2022-02-09 19:53 | Emergency (ER) | payer MEDICARE ==
[~2022-02-09] VITALS: Ht 149.9 cm; Wt 87.1 kg
[~2022-02-09 19:53] MED LIST changes: +DICYCLOMINE HCL20 MG PO; +PANTOPRAZOLE SO40 MG PO; +ZOFRAN4 MG PO
[2022-02-09 20:33] LABS: BASOPHILS # (AUTO) 0.1 (0.0-0.1); BASOPHILS % 0.5 % (0.0-1.0); EOSINOPHILS # (AUTO) 0.1 (0.0-0.4); EOSINOPHILS % 0.5 % (0.0-6.0); HEMATOCRIT 46.5 % (34.2-44.1); HEMOGLOBIN 15.2 g/dL (12.0-16.0); LYMPHOCYTES # (AUTO) 1.1 (1.0-3.2); LYMPHOCYTES % 10.9 % (18.0-39.1); MEAN CORPUSCULAR HEMOGLOBIN 29.3 pg (28-32); MEAN CORPUSCULAR HGB CONC 32.7 g/dL (31-35); MEAN CORPUSCULAR VOLUME 89.8 fL (81-99); MONOCYTES # (AUTO) 0.6 (0.2-0.8); MONOCYTES % 5.8 % (4.4-11.3); NEUTROPHILS # (AUTO) 8.5 (2.1-6.9); NEUTROPHILS % 81.9 % (38.7-80.0); PLATELET COUNT 179 x10e3/uL (140-360); RED BLOOD COUNT 5.18 x10e6/uL (3.6-5.1); RED CELL DISTRIBUTION WIDTH 13.9 % (11.7-14.4)
[2022-02-09 20:49] LABS: ALBUMIN 3.8 g/dL (3.5-5.0); ALBUMIN/GLOBULIN RATIO 1.1 (0.8-2.0); ANION GAP 14.3 mmol/L (8-16); CALCIUM 9.1 mg/dL (8.4-10.2); CREATININE, SERUM 0.87 mg/dL (0.57-1.11); POTASSIUM 4.3 mmol/L (3.5-5.1)
[2022-02-09 21:01] LABS: AMYLASE 36 U/L (25-125); LIPASE 28 U/L (8-78)
[2022-02-09] MEDS ORDERED: MORPHINE SULFAT15 MG PO (22:18)
[2022-02-09] MEDS ORDERED: ONDANSETRON ODT4 MG PO (22:18)
[2022-02-09 22:55] VITALS: BP 132/88
== END 2022-02-09 22:55 | disposition home or self-care (01) ==
LOC: ER 20:19
DX: R10.11 Right upper quadrant pain (principal); K80.20 Calculus of gallbladder without cholecystitis without obstruction; K82.9 Disease of gallbladder, unspecified; K76.0 Fatty (change of) liver, not elsewhere classified; R94.31 Abnormal electrocardiogram [ECG] [EKG]
CPT/HCPCS: 36415; 76705; 80053; 82150; 83690; 84484; 85025; 93005; 99284

== ENCOUNTER 2023-01-07 11:30 | Inpatient (IN) | payer MEDICARE ==
[~2023-01-07] VITALS: Ht 142.2 cm; Wt 77.1 kg
[~2023-01-07 11:30] MED LIST changes: +MORPHINE SULFAT15 MG PO; +ONDANSETRON ODT4 MG PO
[2023-01-07] MEDS ORDERED: SODIUM CHLORIDE FLUSH 10 ML SYR IV PRN (13:00)
[2023-01-07 13:05] LABS: BASOPHILS % 0.3 % (0.0-1.0); HEMATOCRIT 37.9 % (34.2-44.1); HEMOGLOBIN 12.9 g/dL (12.0-16.0); LYMPHOCYTES # (AUTO) 0.6 (1.0-3.2); LYMPHOCYTES % 9.4 % (18.0-39.1); MEAN CORPUSCULAR HEMOGLOBIN 29.7 pg (28-32); MEAN CORPUSCULAR VOLUME 87.3 fL (81-99); MONOCYTES # (AUTO) 0.4 (0.2-0.8); NEUTROPHILS # (AUTO) 5.7 (2.1-6.9); NEUTROPHILS % 83.7 % (38.7-80.0); PLATELET COUNT 172 x10e3/uL (140-360); RED BLOOD COUNT 4.34 x10e6/uL (3.6-5.1); RED CELL DISTRIBUTION WIDTH 12.5 % (11.7-14.4)
[2023-01-07 13:17] LABS: ALBUMIN 3.4 g/dL (3.5-5.0); ALBUMIN/GLOBULIN RATIO 1.1 (0.8-2.0); CALCIUM 8.5 mg/dL (8.4-10.2); CREATININE, SERUM 0.67 mg/dL (0.57-1.11)
[2023-01-07 13:39] LABS: CLARITY,URINE CLEAR (CLEAR); COLOR,URINE YELLOW (YELLOW); KETONES,URINE NEGATIVE (NEGATIVE); LEUKOCYTE ESTERASE ,URINE NEGATIVE (NEGATIVE); NITRITE,URINE NEGATIVE (NEGATIVE); PROTEIN,URINE DIPSTICK >=300 (NEGATIVE); URINE UROBILINOGEN 0.2 mg/dL (0.2 - 1)
[2023-01-07 13:41] LABS: BACTERIA,URINE FEW /HPF; EPITHELIAL CELLS,URINE FEW /LPF
[2023-01-07] MEDS ORDERED: FUROSEMIDE INJ 10 MG/ML 4 ML VIAL IV ONE (14:15)
[2023-01-07] MEDS ORDERED: DEXTROSE 50% SYRINGE 50 ML IV PRN (15:00)
[2023-01-07] MEDS: INSULIN LISPRO 100 UNIT/1 ML 3ML VIAL SQ SCH ×2 (17:40→21:00)
[2023-01-07 19:52] LABS: CREATINE KINASE MB 2.7 ng/mL (0-5.0)
[2023-01-07 21:54] VITALS: BP 123/74
[2023-01-07 21:57] VITALS: BP 123/74
[2023-01-07] MEDS: FUROSEMIDE INJ 10 MG/ML 4 ML VIAL IV SCH (22:00)
[2023-01-08] MEDS: FUROSEMIDE INJ 10 MG/ML 4 ML VIAL IV SCH ×3 (05:30→21:24)
[2023-01-08 06:14] LABS: BASOPHILS % 0.4 % (0.0-1.0); EOSINOPHILS % 0.1 % (0.0-6.0); HEMATOCRIT 40.5 % (34.2-44.1); HEMOGLOBIN 13.4 g/dL (12.0-16.0); LYMPHOCYTES # (AUTO) 0.8 (1.0-3.2); LYMPHOCYTES % 10.2 % (18.0-39.1); MEAN CORPUSCULAR HGB CONC 33.1 g/dL (31-35); MEAN CORPUSCULAR VOLUME 90.8 fL (81-99); MONOCYTES # (AUTO) 0.9 (0.2-0.8); MONOCYTES % 11.7 % (4.4-11.3); NEUTROPHILS # (AUTO) 6.2 (2.1-6.9); NEUTROPHILS % 77.2 % (38.7-80.0); PLATELET COUNT 201 x10e3/uL (140-360); RED BLOOD COUNT 4.46 x10e6/uL (3.6-5.1); RED CELL DISTRIBUTION WIDTH 12.8 % (11.7-14.4)
[2023-01-08 06:41] LABS: CREATINE KINASE MB 2.6 ng/mL (0-5.0)
[2023-01-08 07:07] LABS: ALBUMIN 3.2 g/dL (3.5-5.0); ALBUMIN/GLOBULIN RATIO 1.1 (0.8-2.0); ANION GAP 13.8 mmol/L (8-16); CALCIUM 8.8 mg/dL (8.4-10.2); CHOL/HDL RATIO 2.4 (3.0-3.6); CREATININE, SERUM 0.62 mg/dL (0.57-1.11); POTASSIUM 3.8 mmol/L (3.5-5.1)
[2023-01-08] MEDS: INSULIN LISPRO 100 UNIT/1 ML 3ML VIAL SQ SCH ×4 (07:30→21:00)
[2023-01-08 08:00] VITALS: BP 101/54
[2023-01-08 08:08] VITALS: BP 101/54
[2023-01-08] MEDS: BENZONATATE 100 MG CAP PO PRN ×2 (09:56→17:18)
[2023-01-08] MEDS: METFORMIN HCL 500 MG TAB PO SCH (09:56)
[2023-01-08] MEDS: FAMOTIDINE 20 MG TAB PO SCH ×2 (09:59→17:18)
[2023-01-08 11:28] VITALS: BP 130/79
[2023-01-08 14:45] LABS: CREATINE KINASE MB 1.9 ng/mL (0-5.0)
[2023-01-08 15:50] VITALS: BP 124/57
[2023-01-08] MEDS ORDERED: ACETAMINOPHEN 325 MG TAB PO PRN (16:45)
[2023-01-08] MEDS: IPRATROPIUM BROMIDE 0.02% 2.5 ML NEB NEB SCH ×2 (17:00→23:05)
[2023-01-08] MEDS: ALBUTEROL SULF 0.083% NEB SOLN 3 ML NEB NEB SCH ×2 (17:00→23:05)
[2023-01-08] MEDS: CARVEDILOL 3.125 MG TAB PO SCH (17:12)
[2023-01-08 20:00] VITALS: BP 124/57
[2023-01-08 20:46] VITALS: BP 122/64
[2023-01-08] MEDS: ATORVASTATIN 20 MG TAB PO SCH (21:13)
[2023-01-08] MEDS: LISINOPRIL 2.5 MG TAB PO SCH (21:13)
[2023-01-08] MEDS ORDERED: ALBUTEROL/IPRATROPIUM 3 ML NEB NEB SCH (22:00)
[2023-01-09] VITALS (8 sets, daily range): BP systolic 90–130; BP diastolic 60–78
[2023-01-09] MEDS: FUROSEMIDE INJ 10 MG/ML 4 ML VIAL IV SCH ×3 (06:07→22:02)
[2023-01-09] MEDS: ALBUTEROL SULF 0.083% NEB SOLN 3 ML NEB NEB SCH ×3 (06:30→21:25)
[2023-01-09] MEDS: IPRATROPIUM BROMIDE 0.02% 2.5 ML NEB NEB SCH ×3 (06:30→21:25)
[2023-01-09] MEDS: INSULIN LISPRO 100 UNIT/1 ML 3ML VIAL SQ SCH ×4 (07:30→22:15)
[2023-01-09 08:01] LABS: BASOPHILS % 0.4 % (0.0-1.0); EOSINOPHILS # (AUTO) 0.1 (0.0-0.4); EOSINOPHILS % 0.7 % (0.0-6.0); HEMATOCRIT 40.2 % (34.2-44.1); HEMOGLOBIN 13.7 g/dL (12.0-16.0); LYMPHOCYTES # (AUTO) 1.4 (1.0-3.2); LYMPHOCYTES % 18.9 % (18.0-39.1); MEAN CORPUSCULAR HEMOGLOBIN 29.4 pg (28-32); MEAN CORPUSCULAR HGB CONC 34.1 g/dL (31-35); MEAN CORPUSCULAR VOLUME 86.3 fL (81-99); NEUTROPHILS # (AUTO) 4.9 (2.1-6.9); NEUTROPHILS % 66.7 % (38.7-80.0); PLATELET COUNT 171 x10e3/uL (140-360); RED BLOOD COUNT 4.66 x10e6/uL (3.6-5.1); RED CELL DISTRIBUTION WIDTH 12.6 % (11.7-14.4)
[2023-01-09 08:19] LABS: ANION GAP 15.4 mmol/L (8-16); CREATININE, SERUM 0.7 mg/dL (0.57-1.11); MAGNESIUM 1.5 MG/DL (1.3-2.1); POTASSIUM 3.4 mmol/L (3.5-5.1)
[2023-01-09] MEDS: ASPIRIN 81 MG ENTERIC COATED PO SCH (09:25)
[2023-01-09] MEDS: CARVEDILOL 3.125 MG TAB PO SCH ×2 (09:26→17:04)
[2023-01-09] MEDS: BENZONATATE 100 MG CAP PO PRN ×3 (11:40→22:10)
[2023-01-09] MEDS: Doxycycline IV 100 MG in SODIUM CHLORIDE 0.9% 100 ML IV SCH (14:04)
[2023-01-09] MEDS ORDERED: SODIUM CHLORIDE 0.9% 250ML 250 ML ONE (14:19)
[2023-01-09] MEDS: FAMOTIDINE 20 MG TAB PO SCH (17:03)
[2023-01-09] MEDS ORDERED: POTASSIUM CHLORIDE 10MEQ EA PO ONE (18:45)
[2023-01-09] MEDS: METFORMIN HCL 500 MG TAB PO SCH (22:01)
[2023-01-09] MEDS: ATORVASTATIN 20 MG TAB PO SCH (22:01)
[2023-01-09] MEDS: LISINOPRIL 2.5 MG TAB PO SCH (22:02)
[2023-01-10] VITALS (8 sets, daily range): BP systolic 96–117; BP diastolic 53–77
[2023-01-10] MEDS: Doxycycline IV 100 MG in SODIUM CHLORIDE 0.9% 100 ML IV SCH ×2 (01:01→14:11)
[2023-01-10] MEDS: FUROSEMIDE INJ 10 MG/ML 4 ML VIAL IV SCH ×2 (05:27→17:16)
[2023-01-10] MEDS: IPRATROPIUM BROMIDE 0.02% 2.5 ML NEB NEB SCH ×3 (06:00→22:55)
[2023-01-10] MEDS: ALBUTEROL SULF 0.083% NEB SOLN 3 ML NEB NEB SCH ×3 (06:00→22:55)
[2023-01-10 07:13] LABS: ANION GAP 14.3 mmol/L (8-16); CALCIUM 9.1 mg/dL (8.4-10.2); CREATININE, SERUM 0.68 mg/dL (0.57-1.11); POTASSIUM 3.3 mmol/L (3.5-5.1)
[2023-01-10] MEDS: INSULIN LISPRO 100 UNIT/1 ML 3ML VIAL SQ SCH ×5 (07:30→22:03)
[2023-01-10] MEDS: BENZONATATE 100 MG CAP PO PRN (08:38)
[2023-01-10] MEDS: ASPIRIN 81 MG ENTERIC COATED PO SCH (08:39)
[2023-01-10] MEDS: FAMOTIDINE 20 MG TAB PO SCH ×2 (08:39→17:16)
[2023-01-10] MEDS: CARVEDILOL 3.125 MG TAB PO SCH ×2 (08:40→17:17)
[2023-01-10] MEDS ORDERED: POTASSIUM CHLORIDE 20 MEQ TAB CR PO STA ×2 (10:20→11:41)
[2023-01-10] MEDS ORDERED: SODIUM CHLORIDE 452MG TAB PO ONE (12:30)
[2023-01-10] MEDS: SODIUM CHLORIDE 452MG TAB PO SCH (13:57)
[2023-01-10] MEDS ORDERED: POTASSIUM CHLORIDE 20 MEQ TAB CR PO ONE ×2 (14:00→16:56)
[2023-01-10] MEDS: GUAIFENESIN/CODEINE 5 ML LIQD PO PRN (14:12)
[2023-01-10] MEDS: ATORVASTATIN 20 MG TAB PO SCH (22:00)
[2023-01-10] MEDS: METFORMIN HCL 500 MG TAB PO SCH (22:00)
[2023-01-10] MEDS: LISINOPRIL 2.5 MG TAB PO SCH (22:01)
[2023-01-11] VITALS (7 sets, daily range): BP systolic 94–124; BP diastolic 56–97
[2023-01-11] MEDS: FUROSEMIDE INJ 10 MG/ML 4 ML VIAL IV SCH ×3 (02:07→21:09)
[2023-01-11] MEDS: Doxycycline IV 100 MG in SODIUM CHLORIDE 0.9% 100 ML IV SCH ×2 (02:07→12:31)
[2023-01-11] MEDS: ALBUTEROL SULF 0.083% NEB SOLN 3 ML NEB NEB SCH ×3 (06:00→23:30)
[2023-01-11] MEDS: IPRATROPIUM BROMIDE 0.02% 2.5 ML NEB NEB SCH ×3 (06:00→23:30)
[2023-01-11 06:23] LABS: BASOPHILS # (AUTO) 0.1 (0.0-0.1); BASOPHILS % 1.2 % (0.0-1.0); EOSINOPHILS # (AUTO) 0.1 (0.0-0.4); EOSINOPHILS % 1.5 % (0.0-6.0); HEMATOCRIT 41.8 % (34.2-44.1); HEMOGLOBIN 13.9 g/dL (12.0-16.0); LYMPHOCYTES # (AUTO) 1.8 (1.0-3.2); LYMPHOCYTES % 26.5 % (18.0-39.1); MEAN CORPUSCULAR HEMOGLOBIN 29.3 pg (28-32); MEAN CORPUSCULAR HGB CONC 33.3 g/dL (31-35); MONOCYTES # (AUTO) 0.8 (0.2-0.8); MONOCYTES % 11.7 % (4.4-11.3); NEUTROPHILS % 58.8 % (38.7-80.0); PLATELET COUNT 182 x10e3/uL (140-360); RED BLOOD COUNT 4.75 x10e6/uL (3.6-5.1); RED CELL DISTRIBUTION WIDTH 12.7 % (11.7-14.4)
[2023-01-11 06:43] LABS: ALBUMIN 3.3 g/dL (3.5-5.0); ALBUMIN/GLOBULIN RATIO 1.1 (0.8-2.0); ANION GAP 15.2 mmol/L (8-16); CALCIUM 8.8 mg/dL (8.4-10.2); CREATININE, SERUM 0.82 mg/dL (0.57-1.11); POTASSIUM 4.2 mmol/L (3.5-5.1)
[2023-01-11] MEDS: INSULIN LISPRO 100 UNIT/1 ML 3ML VIAL SQ SCH ×4 (07:30→21:00)
[2023-01-11] MEDS ORDERED: FUROSEMIDE INJ 10 MG/ML 4 ML VIAL IV SCH (09:00)
[2023-01-11] MEDS: CARVEDILOL 3.125 MG TAB PO SCH ×2 (09:00→17:53)
[2023-01-11] MEDS: SODIUM CHLORIDE 452MG TAB PO SCH (09:40)
[2023-01-11] MEDS: ASPIRIN 81 MG ENTERIC COATED PO SCH (09:40)
[2023-01-11] MEDS: FAMOTIDINE 20 MG TAB PO SCH ×2 (09:41→17:52)
[2023-01-11] MEDS: GUAIFENESIN/CODEINE 5 ML LIQD PO PRN (12:31)
[2023-01-11] MEDS: METFORMIN HCL 500 MG TAB PO SCH (21:08)
[2023-01-11] MEDS: ATORVASTATIN 20 MG TAB PO SCH (21:08)
[2023-01-11] MEDS: LISINOPRIL 2.5 MG TAB PO SCH (21:09)
[2023-01-12] MEDS: Doxycycline IV 100 MG in SODIUM CHLORIDE 0.9% 100 ML IV SCH ×2 (00:55→13:00)
[2023-01-12 01:15] VITALS: BP 94/50
[2023-01-12 05:14] LABS: BASOPHILS # (AUTO) 0.1 (0.0-0.1); BASOPHILS % 0.7 % (0.0-1.0); EOSINOPHILS # (AUTO) 0.2 (0.0-0.4); EOSINOPHILS % 2.6 % (0.0-6.0); HEMATOCRIT 40.8 % (34.2-44.1); HEMOGLOBIN 13.6 g/dL (12.0-16.0); LYMPHOCYTES % 26.8 % (18.0-39.1); MEAN CORPUSCULAR HEMOGLOBIN 29.1 pg (28-32); MEAN CORPUSCULAR HGB CONC 33.3 g/dL (31-35); MEAN CORPUSCULAR VOLUME 87.2 fL (81-99); MONOCYTES # (AUTO) 0.7 (0.2-0.8); MONOCYTES % 8.9 % (4.4-11.3); NEUTROPHILS # (AUTO) 4.4 (2.1-6.9); NEUTROPHILS % 60.7 % (38.7-80.0); PLATELET COUNT 199 x10e3/uL (140-360); RED BLOOD COUNT 4.68 x10e6/uL (3.6-5.1); RED CELL DISTRIBUTION WIDTH 12.7 % (11.7-14.4)
[2023-01-12 05:28] VITALS: BP 101/65
[2023-01-12 05:31] LABS: ALBUMIN 3.3 g/dL (3.5-5.0); ALBUMIN/GLOBULIN RATIO 1.1 (0.8-2.0); ANION GAP 16.9 mmol/L (8-16); CALCIUM 9.4 mg/dL (8.4-10.2); CREATININE, SERUM 0.86 mg/dL (0.57-1.11); POTASSIUM 3.9 mmol/L (3.5-5.1)
[2023-01-12] MEDS: ALBUTEROL SULF 0.083% NEB SOLN 3 ML NEB NEB SCH ×3 (07:18→23:35)
[2023-01-12] MEDS: IPRATROPIUM BROMIDE 0.02% 2.5 ML NEB NEB SCH ×2 (07:18→14:10)
[2023-01-12] MEDS: INSULIN LISPRO 100 UNIT/1 ML 3ML VIAL SQ SCH ×4 (07:30→21:55)
[2023-01-12 07:32] VITALS: BP 111/50
[2023-01-12] MEDS: FUROSEMIDE INJ 10 MG/ML 4 ML VIAL IV SCH (09:41)
[2023-01-12] MEDS: FAMOTIDINE 20 MG TAB PO SCH ×2 (09:42→18:12)
[2023-01-12] MEDS: SODIUM CHLORIDE 452MG TAB PO SCH (09:42)
[2023-01-12] MEDS: CARVEDILOL 3.125 MG TAB PO SCH ×2 (09:43→17:00)
[2023-01-12] MEDS: ASPIRIN 81 MG ENTERIC COATED PO SCH (09:43)
[2023-01-12 11:19] VITALS: BP 95/55
[2023-01-12 16:13] VITALS: BP 95/57
[2023-01-12 20:00] VITALS: BP 104/55
[2023-01-12] MEDS: LISINOPRIL 2.5 MG TAB PO SCH (21:00)
[2023-01-12] MEDS: METFORMIN HCL 500 MG TAB PO SCH (21:34)
[2023-01-12] MEDS: ATORVASTATIN 20 MG TAB PO SCH (21:34)
[2023-01-13] VITALS: BP 102/63
[2023-01-13] MEDS: GUAIFENESIN/CODEINE 5 ML LIQD PO PRN (00:06)
[2023-01-13] MEDS: Doxycycline IV 100 MG in SODIUM CHLORIDE 0.9% 100 ML IV SCH (00:08)
[2023-01-13 05:18] VITALS: BP 104/62
[2023-01-13] MEDS: IPRATROPIUM BROMIDE 0.02% 2.5 ML NEB NEB SCH ×2 (06:30→14:30)
[2023-01-13] MEDS: ALBUTEROL SULF 0.083% NEB SOLN 3 ML NEB NEB SCH ×2 (06:30→06:59)
[2023-01-13] MEDS ORDERED: GUAIFEN-CODEINE5 ML PO (07:30)
[2023-01-13] MEDS ORDERED: FUROSEMIDE40 MG PO (07:30)
[2023-01-13] MEDS ORDERED: ALBUTEROL2.5 MG/3 M NEB (07:30)
[2023-01-13] MEDS ORDERED: IPRATROPIU0.2 MG/1 M NEB (07:30)
[2023-01-13] MEDS ORDERED: DOXYCYCLINE HY100 MG PO (07:30)
[2023-01-13] MEDS: INSULIN LISPRO 100 UNIT/1 ML 3ML VIAL SQ SCH ×2 (07:30→12:37)
[2023-01-13] MEDS ORDERED: GUAIFENESIN600 M1 PO (07:38)
[2023-01-13 08:24] VITALS: BP 104/60
[2023-01-13] MEDS ORDERED: FUROSEMIDE 40 MG TAB PO SCH (09:00)
[2023-01-13] MEDS: CARVEDILOL 3.125 MG TAB PO SCH ×2 (09:00→10:15)
[2023-01-13 09:45] VITALS: BP 104/60
[2023-01-13] MEDS: FAMOTIDINE 20 MG TAB PO SCH (10:14)
[2023-01-13] MEDS: ASPIRIN 81 MG ENTERIC COATED PO SCH (10:14)
[2023-01-13] MEDS ORDERED: DOXYCYCLINE HYCLATE TABLET 100 MG TAB PO SCH ×2 (12:00)
[2023-01-13 12:12] VITALS: BP 118/67
== END 2023-01-13 14:44 | disposition home or self-care (01) | DRG 291 ==
LOC: ER 11:44 → ERHOLD 14:59 → MED/SURG3 20:28
PROVIDERS: ADMIT Internal Medicine; ATTEND Internal Medicine
DX: I11.0 Hypertensive heart disease with heart failure (principal); I50.23 Acute on chronic systolic (congestive) heart failure; J96.01 Acute respiratory failure with hypoxia; E87.1 Hypo-osmolality and hyponatremia; J44.9 Chronic obstructive pulmonary disease, unspecified; E11.9 Type 2 diabetes mellitus without complications; E66.01 Morbid (severe) obesity due to excess calories; Z68.38 Body mass index [BMI] 38.0-38.9, adult; I25.2 Old myocardial infarction; I25.10 Atherosclerotic heart disease of native coronary artery without angina pectoris; E87.6 Hypokalemia; E78.5 Hyperlipidemia, unspecified; Z95.1 Presence of aortocoronary bypass graft; Z95.810 Presence of automatic (implantable) cardiac defibrillator; Z79.4 Long term (current) use of insulin; Z79.82 Long term (current) use of aspirin; Z20.822 Contact with and (suspected) exposure to COVID-19
CPT/HCPCS: 36415; 51700; 71045; 80048; 80053; 80061; 81001; 82550; 82553; 82948; 83605; 83735; 83880; 84484; 85025; 87040; 87086; 93005; 94640; 94760; 94799; 99284; J1940; J7050

== ENCOUNTER 2024-09-24 05:05 | Emergency (ER) | payer MEDICARE ==
[~2024-09-24] VITALS: Ht 142.2 cm; Wt 72.6 kg
[~2024-09-24 05:05] MED LIST changes: +ALBUTEROL2.5 MG/3 M NEB; +DOXYCYCLINE HY100 MG PO; +GUAIFEN-CODEINE5 ML PO; +GUAIFENESIN600 M1 PO; +IPRATROPIU0.2 MG/1 M NEB
[2024-09-24 05:12] VITALS: TEMP 97.5
[2024-09-24] MEDS ORDERED: SODIUM CHLORIDE FLUSH 10 ML SYR INJ PRN (05:15)
[2024-09-24] MEDS: ONDANSETRON HCL INJ 2MG/ML 2ML 2 MG/ML VIAL IV STA (05:24)
[2024-09-24] MEDS: DICYCLOMINE HCL 20 MG/2 ML VIAL IM ONE (05:24)
[2024-09-24 05:27] LABS: BASOPHILS # (AUTO) 0.1 (0.0-0.1); BASOPHILS % 0.9 % (0.0-1.0); EOSINOPHILS # (AUTO) 0.2 (0.0-0.4); EOSINOPHILS % 1.4 % (0.0-6.0); HEMATOCRIT 45.6 % (34.2-44.1); HEMOGLOBIN 14.6 g/dL (12.0-16.0); LYMPHOCYTES # (AUTO) 1.7 (1.0-3.2); LYMPHOCYTES % 12.8 % (18.0-39.1); MEAN CORPUSCULAR VOLUME 93.8 fL (81-99); MONOCYTES # (AUTO) 0.9 (0.2-0.8); NEUTROPHILS % 77.4 % (38.7-80.0); PLATELET COUNT 260 x10e3/uL (140-360); RED BLOOD COUNT 4.86 x10e6/uL (3.6-5.1); RED CELL DISTRIBUTION WIDTH 13.2 % (11.7-14.4); WHITE BLOOD COUNT 12.94 x10e3/uL (4.8-10.8)
[2024-09-24 05:45] LABS: ALBUMIN 4.1 g/dL (3.5-5.0); ALBUMIN/GLOBULIN RATIO 1.2 (0.8-2.0); ANION GAP 16.8 mmol/L (8-16); BILIRUBIN,TOTAL 0.7 mg/dL (0.2-1.2); CALCIUM 9.7 mg/dL (8.4-10.2); CREATININE, SERUM 1.21 mg/dL (0.57-1.11); POTASSIUM 4.8 mmol/L (3.5-5.1); TOTAL PROTEIN 7.5 g/dL (6.5-8.1)
[2024-09-24 05:58] LABS: TROPONIN I 0.001 ng/mL (0-0.300)
[2024-09-24] MEDS ORDERED: Morphine 2mg Syringe 2 MG/ML SYR ONE (06:03)
[2024-09-24 06:05] VITALS: RESP 18
[2024-09-24] MEDS: Morphine 2mg Syringe 2 MG/ML SYR IV ONE (06:07)
[2024-09-24 06:15] VITALS: PULSE 65
[2024-09-24 06:32] VITALS: BP 120/66; PULSE 65; RESP 19; O2SAT 98
== END 2024-09-24 06:46 | disposition home or self-care (01) ==
LOC: ER 05:10
DX: R10.11 Right upper quadrant pain (principal); K80.50 Calculus of bile duct without cholangitis or cholecystitis without obstruction; E11.65 Type 2 diabetes mellitus with hyperglycemia; I10 Essential (primary) hypertension; I25.10 Atherosclerotic heart disease of native coronary artery without angina pectoris; J44.9 Chronic obstructive pulmonary disease, unspecified; I50.9 Heart failure, unspecified; E78.5 Hyperlipidemia, unspecified; I25.2 Old myocardial infarction; Z95.1 Presence of aortocoronary bypass graft; Z95.810 Presence of automatic (implantable) cardiac defibrillator
CPT/HCPCS: 36415; 80053; 83690; 84484; 85025; 93005; 99283; J0500; J2270; J2405; J2470

== ENCOUNTER 2025-02-28 11:57 | Emergency (ER) | payer MEDICARE ==
[~2025-02-28] VITALS: Ht 149.9 cm; Wt 68.9 kg
[~2025-02-28 11:57] MED LIST changes: +ALDACTONE25 MG PO; +BENZONATATE100 MG PO; +LISINOPRIL5 MG PO; +LORATADINE10 MG PO; +Sacubitril/Valsartan 24MG/26MG PO
[2025-02-28 12:31] VITALS: TEMP 97.3
[2025-02-28 12:55] LABS: BASOPHILS % 0.1 % (0.0-1.0); EOSINOPHILS % 0.3 % (0.0-6.0); HEMATOCRIT 36.6 % (34.2-44.1); HEMOGLOBIN 12.2 g/dL (12.0-16.0); LYMPHOCYTES # (AUTO) 0.8 (1.0-3.2); LYMPHOCYTES % 10.7 % (18.0-39.1); MEAN CORPUSCULAR HEMOGLOBIN 29.7 pg (28-32); MEAN CORPUSCULAR HGB CONC 33.3 g/dL (31-35); MEAN CORPUSCULAR VOLUME 89.1 fL (81-99); MONOCYTES # (AUTO) 0.7 (0.2-0.8); NEUTROPHILS # (AUTO) 5.8 (2.1-6.9); NEUTROPHILS % 78.6 % (38.7-80.0); PLATELET COUNT 161 x10e3/uL (140-360); RED BLOOD COUNT 4.11 x10e6/uL (3.6-5.1); RED CELL DISTRIBUTION WIDTH 14.6 % (11.7-14.4); WHITE BLOOD COUNT 7.37 x10e3/uL (4.8-10.8)
[2025-02-28 13:20] LABS: CORONAVIRUS COVID-19 AG NEGATIVE (NEGATIVE); INFLUENZA A AG NEGATIVE (NEGATIVE); INFLUENZA B AG NEGATIVE (NEGATIVE)
[2025-02-28 13:28] LABS: ALBUMIN 3.1 g/dL (3.5-5.0); ALBUMIN/GLOBULIN RATIO 1.1 (0.8-2.0); ANION GAP 13.1 mmol/L (8-16); BILIRUBIN,TOTAL 1.1 mg/dL (0.2-1.2); CALCIUM 8.3 mg/dL (8.4-10.2); CREATININE, SERUM 0.77 mg/dL (0.57-1.11); POTASSIUM 4.1 mmol/L (3.5-5.1); TOTAL PROTEIN 5.9 g/dL (6.5-8.1)
[2025-02-28] MEDS: IBUPROFEN 600 MG TAB PO STA (13:44)
[2025-02-28 14:04] VITALS: PULSE 77; RESP 16; O2SAT 99
[2025-03-05] MEDS ORDERED: ALDACTONE25 MG PO (12:53)
== END 2025-02-28 14:30 | disposition home or self-care (01) ==
LOC: ER 12:27
DX: R51.9 Headache, unspecified (principal); I10 Essential (primary) hypertension; E11.65 Type 2 diabetes mellitus with hyperglycemia; E78.5 Hyperlipidemia, unspecified; J44.9 Chronic obstructive pulmonary disease, unspecified; I50.9 Heart failure, unspecified; I25.10 Atherosclerotic heart disease of native coronary artery without angina pectoris; Z11.52 Encounter for screening for COVID-19; I25.2 Old myocardial infarction
CPT/HCPCS: 36415; 70450; 80053; 83880; 85025; 99284

== ENCOUNTER 2025-03-02 17:30 | Inpatient (IN) | payer MEDICARE ==
[~2025-03-02] VITALS: Ht 149.9 cm; Wt 68.9 kg
[2025-03-02 18:07] LABS: BASOPHILS % 0.2 % (0.0-1.0); EOSINOPHILS % 0.8 % (0.0-6.0); HEMATOCRIT 38.1 % (34.2-44.1); HEMOGLOBIN 12.8 g/dL (12.0-16.0); LYMPHOCYTES % 21.4 % (18.0-39.1); MEAN CORPUSCULAR HEMOGLOBIN 29.4 pg (28-32); MEAN CORPUSCULAR HGB CONC 33.6 g/dL (31-35); MEAN CORPUSCULAR VOLUME 87.6 fL (81-99); MONOCYTES # (AUTO) 0.8 (0.2-0.8); MONOCYTES % 16.1 % (4.4-11.3); NEUTROPHILS # (AUTO) 2.9 (2.1-6.9); NEUTROPHILS % 61.1 % (38.7-80.0); PLATELET COUNT 237 x10e3/uL (140-360); RED BLOOD COUNT 4.35 x10e6/uL (3.6-5.1); RED CELL DISTRIBUTION WIDTH 14.6 % (11.7-14.4); WHITE BLOOD COUNT 4.72 x10e3/uL (4.8-10.8)
[2025-03-02 18:22] LABS: ALBUMIN 3.4 g/dL (3.5-5.0); ALBUMIN/GLOBULIN RATIO 1.1 (0.8-2.0); ANION GAP 17.3 mmol/L (8-16); CALCIUM 8.9 mg/dL (8.4-10.2); CREATININE, SERUM 1.15 mg/dL (0.57-1.11); POTASSIUM 4.3 mmol/L (3.5-5.1); TOTAL PROTEIN 6.4 g/dL (6.5-8.1)
[2025-03-02 19:47] VITALS: PULSE 75; RESP 17; TEMP 98
[2025-03-02] MEDS ORDERED: SODIUM CHLORIDE FLUSH 10 ML SYR INJ PRN (20:00)
[2025-03-02] MEDS ORDERED: DEXTROSE 50% SYRINGE 50 ML IV PRN (20:00)
[2025-03-02 20:18] VITALS: PULSE 78; RESP 18; O2SAT 98
[2025-03-02] MEDS: FUROSEMIDE INJ 10 MG/ML 4 ML VIAL IV SCH (20:40)
[2025-03-02 21:04] VITALS: BP 118/68; PULSE 78; RESP 20; TEMP 97.8; O2SAT 96
[2025-03-02 21:10] VITALS: BP 118/68; PULSE 78; RESP 20; TEMP 97.8; O2SAT 96
[2025-03-02] MEDS: INSULIN REGULAR, HUMAN 100 UNIT/1 ML SQ SCH (22:38)
[2025-03-02] MEDS ORDERED: ENTRESTO 24 MG1 EACH PO (22:59)
[2025-03-02] MEDS ORDERED: ATORVASTATIN CA20 MG PO (23:24)
[2025-03-02] MEDS ORDERED: JARDIANCE10 MG PO (23:26)
[2025-03-02] MEDS ORDERED: VENTOLIN HFA18 GM INH (23:29)
[2025-03-02 23:39] VITALS: BP 115/67; PULSE 70; RESP 20; TEMP 97.8; O2SAT 98
[2025-03-03] VITALS (10 sets, daily range): BP systolic 91–124; BP diastolic 40–68; PULSE 50–96; RESP 18–20; TEMP 97.6–98.4; O2SAT 18–98
[2025-03-03 05:59] LABS: BASOPHILS % 0.3 % (0.0-1.0); EOSINOPHILS % 1.1 % (0.0-6.0); HEMATOCRIT 34.3 % (34.2-44.1); HEMOGLOBIN 11.9 g/dL (12.0-16.0); LYMPHOCYTES # (AUTO) 1.1 (1.0-3.2); LYMPHOCYTES % 29.6 % (18.0-39.1); MEAN CORPUSCULAR HEMOGLOBIN 30.1 pg (28-32); MEAN CORPUSCULAR HGB CONC 34.7 g/dL (31-35); MEAN CORPUSCULAR VOLUME 86.6 fL (81-99); MONOCYTES # (AUTO) 0.7 (0.2-0.8); MONOCYTES % 19.4 % (4.4-11.3); NEUTROPHILS # (AUTO) 1.8 (2.1-6.9); NEUTROPHILS % 49.3 % (38.7-80.0); PLATELET COUNT 204 x10e3/uL (140-360); RED BLOOD COUNT 3.96 x10e6/uL (3.6-5.1); RED CELL DISTRIBUTION WIDTH 14.6 % (11.7-14.4); WHITE BLOOD COUNT 3.71 x10e3/uL (4.8-10.8)
[2025-03-03 06:35] LABS: ALBUMIN 2.6 g/dL (3.5-5.0); ANION GAP 13.9 mmol/L (8-16); BILIRUBIN,TOTAL 0.6 mg/dL (0.2-1.2); CALCIUM 8.5 mg/dL (8.4-10.2); CREATININE, SERUM 0.86 mg/dL (0.57-1.11); POTASSIUM 3.9 mmol/L (3.5-5.1); TOTAL PROTEIN 5.3 g/dL (6.5-8.1)
[2025-03-03 07:03] LABS: TROPONIN I 0.016 ng/mL (0-0.300)
[2025-03-03] MEDS ORDERED: ALBUTEROL 90 MCG/ACT INHALER INH PRN (14:30)
[2025-03-03 16:22] LABS: TROPONIN I 0.007 ng/mL (0-0.300)
[2025-03-03] MEDS: FUROSEMIDE INJ 10 MG/ML 2 ML VIAL IV SCH (16:41)
[2025-03-03] MEDS: ATORVASTATIN 20 MG TAB PO SCH (20:37)
[2025-03-03] MEDS: ACETAMINOPHEN 325 MG TAB PO PRN (21:15)
[2025-03-04] VITALS (8 sets, daily range): BP systolic 96–139; BP diastolic 49–82; PULSE 67–87; RESP 16–20; TEMP 97.1–98.1; O2SAT 95–100
[2025-03-04 05:16] LABS: BASOPHILS # (AUTO) 0.1 (0.0-0.1); BASOPHILS % 1.3 % (0.0-1.0); EOSINOPHILS # (AUTO) 0.1 (0.0-0.4); EOSINOPHILS % 3.4 % (0.0-6.0); HEMATOCRIT 34.6 % (34.2-44.1); HEMOGLOBIN 11.4 g/dL (12.0-16.0); LYMPHOCYTES # (AUTO) 1.3 (1.0-3.2); LYMPHOCYTES % 32.8 % (18.0-39.1); MEAN CORPUSCULAR HEMOGLOBIN 29.3 pg (28-32); MEAN CORPUSCULAR HGB CONC 32.9 g/dL (31-35); MEAN CORPUSCULAR VOLUME 88.9 fL (81-99); MONOCYTES # (AUTO) 0.7 (0.2-0.8); MONOCYTES % 17.3 % (4.4-11.3); NEUTROPHILS # (AUTO) 1.7 (2.1-6.9); NEUTROPHILS % 44.7 % (38.7-80.0); PLATELET COUNT 189 x10e3/uL (140-360); RED BLOOD COUNT 3.89 x10e6/uL (3.6-5.1); RED CELL DISTRIBUTION WIDTH 14.5 % (11.7-14.4); WHITE BLOOD COUNT 3.87 x10e3/uL (4.8-10.8)
[2025-03-04 05:50] LABS: ANION GAP 13.8 mmol/L (8-16); CALCIUM 8.3 mg/dL (8.4-10.2); CREATININE, SERUM 0.82 mg/dL (0.57-1.11); POTASSIUM 3.8 mmol/L (3.5-5.1)
[2025-03-04 05:58] LABS: TROPONIN I 0.014 ng/mL (0-0.300)
[2025-03-04] MEDS: CARVEDILOL 3.125 MG TAB PO SCH (09:00)
[2025-03-04] MEDS ORDERED: FUROSEMIDE INJ 10 MG/ML 2 ML VIAL IV SCH (09:00)
[2025-03-04] MEDS: ASPIRIN 81 MG ENTERIC COATED PO SCH (09:11)
[2025-03-04] MEDS: FAMOTIDINE 20 MG TAB PO SCH (09:12)
[2025-03-04] MEDS: EMPAGLIFLOZIN 10 MG TABLET PO SCH (09:12)
[2025-03-05] VITALS (7 sets, daily range): BP systolic 101–149; BP diastolic 51–93; PULSE 60–92; RESP 18–20; TEMP 97.6–98.8; O2SAT 96–98
[2025-03-05] MEDS: SPIRONOLACTONE 25 MG TAB PO SCH (09:19)
[2025-03-05] MEDS ORDERED: ALDACTONE25 MG PO (12:53)
== END 2025-03-05 13:55 | disposition home or self-care (01) | DRG 291 ==
LOC: ER 18:00 → ERHOLD 19:58 → MED/SURG2 21:06 → MERGE 03-04 11:59 → OBSVTOIN 03-04 11:59
PROVIDERS: ADMIT Internal Medicine; ATTEND Internal Medicine
DX: I11.0 Hypertensive heart disease with heart failure (principal); I50.23 Acute on chronic systolic (congestive) heart failure; I25.10 Atherosclerotic heart disease of native coronary artery without angina pectoris; E11.65 Type 2 diabetes mellitus with hyperglycemia; E78.5 Hyperlipidemia, unspecified; R53.81 Other malaise; Z79.82 Long term (current) use of aspirin; Z79.84 Long term (current) use of oral hypoglycemic drugs; Z95.1 Presence of aortocoronary bypass graft; Z95.810 Presence of automatic (implantable) cardiac defibrillator; I25.2 Old myocardial infarction; Z88.1 Allergy status to other antibiotic agents; Z88.8 Allergy status to other drugs, medicaments and biological substances
CPT/HCPCS: 36415; 71045; 80048; 80053; 82550; 82948; 83880; 84484; 85025; 93005; 94799; 96372; 99285; G0378; J1938; J1940